=== PATIENT | female | born 2000 | race Caucasian/White ===

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

== ENCOUNTER → 2018-01-30 | Outpatient (CLI) | payer OTHER ==
[2018-01-30 16:03] LABS: HEMATOCRIT 38.7 % (35.0-45.0); HEMOGLOBIN 12.3 g/dL (12.0-15.0); RED BLOOD COUNT 4.44 M/mm3 (4.10-5.30); RED CELL DISTRIBUTION WIDTH 12.8 % (11.5-14.5); WHITE BLOOD COUNT 11.4 K/mm3 (4.8-10.8)
[2018-01-30 16:39] LABS: ALBUMIN 4.3 g/dL (3.5-5.0); BUN/CREATININE RATIO 19.6 (6.0-26.0); CALCIUM 9.5 mg/dL (8.4-10.2); POTASSIUM 4.1 mmol/L (3.6-5.0); TOTAL BILIRUBIN 0.7 mg/dL (0.2-1.3)
[2018-01-30 22:17] LABS: C-REACTIVE PROTEIN XXX
== END ==
LOC: LAB 15:10
PROVIDERS: Family Medicine
DX: E34.0 Carcinoid syndrome (principal); E53.8 Deficiency of other specified B group vitamins

== ENCOUNTER → 2018-07-25 | Outpatient (CLI) | payer OTHER ==
[2018-07-18 17:22] VITALS: BP 105/54
[~2018-07-25] MED LIST changes: +BIRTH CONTROL; +CYANOCOBAL1000 MCG/1 IM; +EPIPEN 2-PAK1 MG/ML; +MUPIROCIN2% TP; +PHENERGAN 25 TA25 MG PO; +RT ALBUTEROL CC18 GM IH; +SCOPOLAMINE1 EACH TOP; +ZOFRAN ODT8 M1 PO
== END ==
LOC: RAD 07:45
DX: R10.30 Lower abdominal pain, unspecified (principal); N36.44 Muscular disorders of urethra; R33.9 Retention of urine, unspecified; Z98.890 Other specified postprocedural states

== ENCOUNTER → 2018-08-13 | Outpatient (CLI) | payer OTHER ==
[2018-08-07 12:14] VITALS: BP 112/60
== END ==
LOC: RAD 07:58
DX: R14.0 Abdominal distension (gaseous) (principal); Z98.890 Other specified postprocedural states; Z90.49 Acquired absence of other specified parts of digestive tract

== ENCOUNTER → 2018-08-28 | Outpatient (CLI) | payer OTHER ==
[2018-08-14 13:49] VITALS: BP 97/68
[2018-08-28 17:37] LABS: HEMATOCRIT 37.7 % (35.0-45.0); MEAN PLATELET VOLUME 11.5 fl (7.4-10.4); RED BLOOD COUNT 4.38 M/mm3 (4.10-5.30); RED CELL DISTRIBUTION WIDTH 12.8 % (11.5-14.5); WHITE BLOOD COUNT 10.3 K/mm3 (4.8-10.8)
[2018-08-28 17:43] LABS: ALBUMIN 4.2 g/dL (3.5-5.0); CALCIUM 9.3 mg/dL (8.4-10.2); TOTAL BILIRUBIN 0.4 mg/dL (0.2-1.3); TOTAL PROTEIN 7.3 g/dL (6.3-8.2)
== END ==
LOC: LAB 14:54
PROVIDERS: Family Medicine
DX: Z00.00 Encounter for general adult medical examination without abnormal findings (principal); K31.84 Gastroparesis; K59.8 Other specified functional intestinal disorders; Z90.49 Acquired absence of other specified parts of digestive tract

== ENCOUNTER → 2018-09-04 | Outpatient (CLI) | payer OTHER ==
[2018-08-28 15:32] VITALS: BP 121/57
[2018-09-04 19:09] LABS: HEMATOCRIT 36.3 % (35.0-45.0); HEMOGLOBIN 11.8 g/dL (12.0-15.0); MEAN PLATELET VOLUME 11.1 fl (7.4-10.4); RED BLOOD COUNT 4.25 M/mm3 (4.10-5.30); RED CELL DISTRIBUTION WIDTH 12.9 % (11.5-14.5); WHITE BLOOD COUNT 9.7 K/mm3 (4.8-10.8)
[2018-09-04 19:10] LABS: ALBUMIN 4.2 g/dL (3.5-5.0); CALCIUM 9.4 mg/dL (8.4-10.2); POTASSIUM 4.2 mmol/L (3.6-5.0); TOTAL BILIRUBIN 0.4 mg/dL (0.2-1.3); TOTAL PROTEIN 7.2 g/dL (6.3-8.2)
== END ==
LOC: LAB 18:04
PROVIDERS: Family Medicine
DX: E34.0 Carcinoid syndrome (principal); K52.81 Eosinophilic gastritis or gastroenteritis; D89.40 Mast cell activation, unspecified

== ENCOUNTER → 2018-09-11 | Outpatient (CLI) | payer OTHER ==
[2018-09-04 18:15] VITALS: BP 100/65
[2018-09-11 20:36] LABS: HEMATOCRIT 37.5 % (35.0-45.0); HEMOGLOBIN 12.1 g/dL (12.0-15.0); MEAN PLATELET VOLUME 11.6 fl (7.4-10.4); RED BLOOD COUNT 4.42 M/mm3 (4.10-5.30); WHITE BLOOD COUNT 12.3 K/mm3 (4.8-10.8)
[2018-09-11 21:55] LABS: ALBUMIN 4.3 g/dL (3.5-5.0); CALCIUM 9.3 mg/dL (8.4-10.2); POTASSIUM 3.6 mmol/L (3.6-5.0); TOTAL BILIRUBIN 0.8 mg/dL (0.2-1.3); TOTAL PROTEIN 7.5 g/dL (6.3-8.2)
== END ==
LOC: LAB 19:59
PROVIDERS: Family Medicine
DX: Z78.9 Other specified health status (principal)

== ENCOUNTER → 2018-09-19 | Outpatient (CLI) | payer OTHER ==
[2018-09-11 19:25] VITALS: BP 103/61
[2018-09-19 19:56] LABS: HEMOGLOBIN 11.9 g/dL (12.0-15.0); MEAN PLATELET VOLUME 11.6 fl (7.4-10.4); RED BLOOD COUNT 4.35 M/mm3 (4.10-5.30); RED CELL DISTRIBUTION WIDTH 13.1 % (11.5-14.5); WHITE BLOOD COUNT 10.1 K/mm3 (4.8-10.8)
[2018-09-19 20:01] LABS: ALBUMIN 4.2 g/dL (3.5-5.0); CALCIUM 9.3 mg/dL (8.4-10.2); POTASSIUM 3.8 mmol/L (3.6-5.0); TOTAL BILIRUBIN 0.7 mg/dL (0.2-1.3); TOTAL PROTEIN 7.1 g/dL (6.3-8.2)
== END ==
LOC: LAB 19:16
PROVIDERS: Family Medicine
DX: K31.84 Gastroparesis (principal); E44.1 Mild protein-calorie malnutrition; R19.7 Diarrhea, unspecified; R11.0 Nausea

== ENCOUNTER → 2018-09-26 | Outpatient (CLI) | payer OTHER ==
[2018-09-19 19:05] VITALS: BP 102/65
[2018-09-26 18:36] LABS: BASO # 0.1 (0.02-0.10); EOS # 0.2 (0.04-0.40); EOS % 1.6 % (0.1-4.0); HEMATOCRIT 38.7 % (35.0-45.0); HEMOGLOBIN 12.5 g/dL (12.0-15.0); LYMPH# 2.8 (1.20-3.40); MEAN CELL VOLUME 85 fl (78-95); MEAN CORPUSCULAR HEMOGLOBIN 28 pg (26-32); MEAN CORPUSCULAR HGB CONC 32 g/dL (33-37); MEAN PLATELET VOLUME 11.4 fl (7.4-10.4); MONO # 0.7 (0.10-0.60); PLATELET COUNT 389 K/mm3 (130-400); RED BLOOD COUNT 4.55 M/mm3 (4.10-5.30); RED CELL DISTRIBUTION WIDTH 13.3 % (11.5-14.5); WHITE BLOOD COUNT 11.8 K/mm3 (4.8-10.8)
[2018-09-26 18:47] LABS: ALBUMIN 4.4 g/dL (3.5-5.0); CALCIUM 9.4 mg/dL (8.4-10.2); POTASSIUM 4.3 mmol/L (3.6-5.0); TOTAL BILIRUBIN 0.7 mg/dL (0.2-1.3); TOTAL PROTEIN 7.5 g/dL (6.3-8.2)
== END ==
LOC: LAB 17:23
PROVIDERS: Family Medicine
DX: E44.1 Mild protein-calorie malnutrition (principal); K31.84 Gastroparesis

== ENCOUNTER → 2018-10-03 | Outpatient (CLI) | payer OTHER ==
[2018-09-26 18:17] VITALS: BP 102/67
[2018-10-03 18:09] LABS: BASO # 0.1 (0.02-0.10); EOS # 0.2 (0.04-0.40); EOS % 1.9 % (0.1-4.0); HEMATOCRIT 36.5 % (35.0-45.0); HEMOGLOBIN 11.9 g/dL (12.0-15.0); LYMPH# 2.8 (1.20-3.40); MEAN CELL VOLUME 85 fl (78-95); MEAN CORPUSCULAR HEMOGLOBIN 28 pg (26-32); MEAN CORPUSCULAR HGB CONC 33 g/dL (33-37); MEAN PLATELET VOLUME 11.7 fl (7.4-10.4); MONO # 0.6 (0.10-0.60); NEU # 6.9 (1.40-6.50); PLATELET COUNT 379 K/mm3 (130-400); RED BLOOD COUNT 4.28 M/mm3 (4.10-5.30); RED CELL DISTRIBUTION WIDTH 13.1 % (11.5-14.5); WHITE BLOOD COUNT 10.6 K/mm3 (4.8-10.8)
[2018-10-03 18:16] LABS: ALBUMIN 4.3 g/dL (3.5-5.0); CALCIUM 9.5 mg/dL (8.4-10.2); POTASSIUM 4.2 mmol/L (3.6-5.0); TOTAL BILIRUBIN 0.6 mg/dL (0.2-1.3); TOTAL PROTEIN 7.3 g/dL (6.3-8.2)
== END ==
LOC: LAB 17:11
PROVIDERS: Family Medicine
DX: R19.7 Diarrhea, unspecified (principal); R11.0 Nausea

== ENCOUNTER 2018-10-10 11:27 | Outpatient (RCR) | payer OTHER ==
[2018-07-18 17:22] VITALS: BP 105/54
[2018-08-07 12:14] VITALS: BP 112/60
[2018-08-14 13:49] VITALS: BP 97/68
[2018-08-28 15:32] VITALS: BP 121/57
[2018-09-04 18:15] VITALS: BP 100/65
[2018-09-11 19:25] VITALS: BP 103/61
[2018-09-19 19:05] VITALS: BP 102/65
[2018-09-26 18:17] VITALS: BP 102/67
[2018-10-03 17:15] VITALS: BP 113/76
[~2018-10-10] VITALS: Ht 175.3 cm; Wt 77.3 kg
[2018-10-10 12:00] VITALS: BP 104/55
== END 2018-10-16 | disposition home or self-care (01) ==
LOC: AMSURD
DX: E34.0 Carcinoid syndrome (principal); Z45.2 Encounter for adjustment and management of vascular access device; Z95.828 Presence of other vascular implants and grafts; Z48.00 Encounter for change or removal of nonsurgical wound dressing
CPT/HCPCS: J3420

== ENCOUNTER → 2018-10-10 | Outpatient (CLI) | payer OTHER ==
[2018-10-03 17:15] VITALS: BP 113/76
[2018-10-10 12:46] LABS: EOS # 0.2 (0.04-0.40); EOS % 2.6 % (0.1-4.0); HEMATOCRIT 36.8 % (35.0-45.0); HEMOGLOBIN 11.7 g/dL (12.0-15.0); LYMPH# 2.4 (1.20-3.40); MEAN CELL VOLUME 86 fl (78-95); MEAN CORPUSCULAR HEMOGLOBIN 27 pg (26-32); MEAN CORPUSCULAR HGB CONC 32 g/dL (33-37); MEAN PLATELET VOLUME 12.2 fl (7.4-10.4); MONO # 0.5 (0.10-0.60); NEU # 5.1 (1.40-6.50); PLATELET COUNT 327 K/mm3 (130-400); RED BLOOD COUNT 4.27 M/mm3 (4.10-5.30); RED CELL DISTRIBUTION WIDTH 13.3 % (11.5-14.5); WHITE BLOOD COUNT 8.4 K/mm3 (4.8-10.8)
[2018-10-10 13:10] LABS: ALBUMIN 4.1 g/dL (3.5-5.0); CALCIUM 8.9 mg/dL (8.4-10.2); POTASSIUM 4.1 mmol/L (3.6-5.0); TOTAL BILIRUBIN 0.4 mg/dL (0.2-1.3); TOTAL PROTEIN 7.1 g/dL (6.3-8.2)
== END ==
LOC: LAB 12:28
PROVIDERS: Family Medicine
DX: R19.7 Diarrhea, unspecified (principal); R11.0 Nausea

== ENCOUNTER 2018-10-23 17:00 | Outpatient (RCR) | payer OTHER ==
[2018-10-17 16:20] VITALS: BP 108/53
[2018-10-17 18:06] LABS: EOS # 0.2 (0.04-0.40); EOS % 2.2 % (0.1-4.0); HEMATOCRIT 35.4 % (35.0-45.0); HEMOGLOBIN 11.3 g/dL (12.0-15.0); LYMPH# 2.6 (1.20-3.40); MEAN CELL VOLUME 85 fl (78-95); MEAN CORPUSCULAR HEMOGLOBIN 27 pg (26-32); MEAN CORPUSCULAR HGB CONC 32 g/dL (33-37); MONO # 0.7 (0.10-0.60); PLATELET COUNT 309 K/mm3 (130-400); RED BLOOD COUNT 4.15 M/mm3 (4.10-5.30); RED CELL DISTRIBUTION WIDTH 13.4 % (11.5-14.5); WHITE BLOOD COUNT 9.6 K/mm3 (4.8-10.8)
[2018-10-17 18:23] LABS: MEAN PLATELET VOLUME 12.2 fl (7.4-10.4)
[2018-10-17 21:20] LABS: ALBUMIN 3.8 g/dL (3.5-5.0); TOTAL BILIRUBIN 0.6 mg/dL (0.2-1.3); TOTAL PROTEIN 6.8 g/dL (6.3-8.2)
[2018-10-23 18:16] LABS: EOS # 0.2 (0.04-0.40); EOS % 1.9 % (0.1-4.0); HEMATOCRIT 37.1 % (35.0-45.0); HEMOGLOBIN 11.8 g/dL (12.0-15.0); LYMPH# 2.5 (1.20-3.40); MEAN CELL VOLUME 86 fl (78-95); MEAN CORPUSCULAR HEMOGLOBIN 27 pg (26-32); MEAN CORPUSCULAR HGB CONC 32 g/dL (33-37); MONO # 0.6 (0.10-0.60); PLATELET COUNT 327 K/mm3 (130-400); RED BLOOD COUNT 4.34 M/mm3 (4.10-5.30); RED CELL DISTRIBUTION WIDTH 13.3 % (11.5-14.5); WHITE BLOOD COUNT 9.3 K/mm3 (4.8-10.8)
[2018-10-23 18:21] LABS: MEAN PLATELET VOLUME 12.3 fl (7.4-10.4)
[2018-10-23 18:23] LABS: ALBUMIN 4.1 g/dL (3.5-5.0); CALCIUM 9.2 mg/dL (8.4-10.2); TOTAL BILIRUBIN 0.6 mg/dL (0.2-1.3); TOTAL PROTEIN 7.4 g/dL (6.3-8.2)
== END 2018-10-23 17:01 | disposition home or self-care (01) ==
LOC: LAB 17:00
PROVIDERS: Family Medicine
DX: R19.7 Diarrhea, unspecified (principal); R11.0 Nausea

== ENCOUNTER → 2018-11-13 | Outpatient (CLI) | payer OTHER ==
[2018-10-30 13:24] VITALS: BP 103/71
[2018-11-13 21:23] LABS: ALBUMIN 3.6 g/dL (3.5-5.0); CALCIUM 9.1 mg/dL (8.4-10.2); POTASSIUM 4.2 mmol/L (3.6-5.0); TOTAL BILIRUBIN 0.7 mg/dL (0.2-1.3); TOTAL PROTEIN 6.6 g/dL (6.3-8.2)
[2018-11-13 21:28] LABS: EOS # 0.1 (0.04-0.40); EOS % 1.3 % (0.1-4.0); HEMATOCRIT 36.9 % (35.0-45.0); HEMOGLOBIN 11.8 g/dL (12.0-15.0); LYMPH# 2.6 (1.20-3.40); MEAN CELL VOLUME 85 fl (78-95); MEAN CORPUSCULAR HEMOGLOBIN 27 pg (26-32); MEAN CORPUSCULAR HGB CONC 32 g/dL (33-37); MONO # 0.5 (0.10-0.60); NEU # 5.6 (1.40-6.50); PLATELET COUNT 302 K/mm3 (130-400); RED BLOOD COUNT 4.32 M/mm3 (4.10-5.30); RED CELL DISTRIBUTION WIDTH 13.8 % (11.5-14.5); WHITE BLOOD COUNT 8.9 K/mm3 (4.8-10.8)
[2018-11-14 01:10] LABS: MEAN PLATELET VOLUME 12.2 fl (7.4-10.4)
== END ==
LOC: LAB 17:18
PROVIDERS: Family Medicine
DX: K31.84 Gastroparesis (principal); E44.1 Mild protein-calorie malnutrition; R19.7 Diarrhea, unspecified; R11.0 Nausea

== ENCOUNTER → 2018-11-20 | Outpatient (CLI) | payer OTHER ==
[2018-11-13 17:30] VITALS: BP 121/76
[2018-11-20 21:02] LABS: EOS # 0.1 (0.04-0.40); EOS % 1.3 % (0.1-4.0); HEMATOCRIT 37.4 % (35.0-45.0); LYMPH# 2.4 (1.20-3.40); MEAN CELL VOLUME 84 fl (78-95); MEAN CORPUSCULAR HEMOGLOBIN 27 pg (26-32); MEAN CORPUSCULAR HGB CONC 32 g/dL (33-37); MONO # 0.6 (0.10-0.60); NEU # 7.6 (1.40-6.50); PLATELET COUNT 338 K/mm3 (130-400); RED BLOOD COUNT 4.43 M/mm3 (4.10-5.30); RED CELL DISTRIBUTION WIDTH 13.6 % (11.5-14.5); WHITE BLOOD COUNT 10.8 K/mm3 (4.8-10.8)
[2018-11-20 21:08] LABS: ALBUMIN 3.8 g/dL (3.5-5.0); CALCIUM 9.1 mg/dL (8.4-10.2); POTASSIUM 4.2 mmol/L (3.6-5.0); TOTAL BILIRUBIN 0.5 mg/dL (0.2-1.3)
[2018-11-20 21:22] LABS: MEAN PLATELET VOLUME 12.9 fl (7.4-10.4)
== END ==
LOC: LAB 18:31
PROVIDERS: Family Medicine
DX: E44.1 Mild protein-calorie malnutrition (principal); R19.7 Diarrhea, unspecified; K31.84 Gastroparesis

== ENCOUNTER → 2018-11-27 | Outpatient (CLI) | payer OTHER ==
[2018-11-20 18:40] VITALS: BP 93/61
[2018-11-27 19:31] LABS: BASO # 0.1 (0.02-0.10); EOS # 0.3 (0.04-0.40); EOS % 2.6 % (0.1-4.0); HEMATOCRIT 37.5 % (35.0-45.0); HEMOGLOBIN 11.9 g/dL (12.0-15.0); LYMPH# 2.9 (1.20-3.40); MEAN CELL VOLUME 85 fl (78-95); MEAN CORPUSCULAR HEMOGLOBIN 27 pg (26-32); MEAN CORPUSCULAR HGB CONC 32 g/dL (33-37); MONO # 0.6 (0.10-0.60); NEU # 5.6 (1.40-6.50); PLATELET COUNT 334 K/mm3 (130-400); RED BLOOD COUNT 4.42 M/mm3 (4.10-5.30); RED CELL DISTRIBUTION WIDTH 13.6 % (11.5-14.5); WHITE BLOOD COUNT 9.4 K/mm3 (4.8-10.8)
[2018-11-27 19:33] LABS: MEAN PLATELET VOLUME 12.3 fl (7.4-10.4)
[2018-11-27 19:37] LABS: POTASSIUM 4.2 mmol/L (3.6-5.0); TOTAL BILIRUBIN 0.6 mg/dL (0.2-1.3); TOTAL PROTEIN 7.2 g/dL (6.3-8.2)
== END ==
LOC: LAB 18:47
PROVIDERS: Family Medicine
DX: K31.84 Gastroparesis (principal); R19.7 Diarrhea, unspecified; R11.0 Nausea; E44.1 Mild protein-calorie malnutrition

== ENCOUNTER → 2018-12-04 | Outpatient (CLI) | payer OTHER ==
[2018-11-27 18:18] VITALS: BP 105/58
[2018-12-04 20:54] LABS: BASO # 0.1 (0.02-0.10); EOS # 0.1 (0.04-0.40); EOS % 1.5 % (0.1-4.0); HEMATOCRIT 36.3 % (35.0-45.0); HEMOGLOBIN 11.6 g/dL (12.0-15.0); LYMPH# 2.8 (1.20-3.40); MEAN CELL VOLUME 84 fl (78-95); MEAN CORPUSCULAR HEMOGLOBIN 27 pg (26-32); MEAN CORPUSCULAR HGB CONC 32 g/dL (33-37); MONO # 0.4 (0.10-0.60); PLATELET COUNT 323 K/mm3 (130-400); RED BLOOD COUNT 4.31 M/mm3 (4.10-5.30); RED CELL DISTRIBUTION WIDTH 13.5 % (11.5-14.5); WHITE BLOOD COUNT 9.4 K/mm3 (4.8-10.8)
[2018-12-04 21:02] LABS: ALBUMIN 3.9 g/dL (3.5-5.0); CALCIUM 8.8 mg/dL (8.4-10.2); TOTAL BILIRUBIN 0.8 mg/dL (0.2-1.3); TOTAL PROTEIN 7.1 g/dL (6.3-8.2)
[2018-12-04 21:06] LABS: MEAN PLATELET VOLUME 12.2 fl (7.4-10.4)
== END ==
LOC: LAB 19:56
PROVIDERS: Family Medicine
DX: Z76.0 Encounter for issue of repeat prescription (principal)

== ENCOUNTER → 2018-12-11 | Outpatient (CLI) | payer OTHER ==
[2018-12-04 20:19] VITALS: BP 103/55
[2018-12-11 18:19] LABS: EOS # 0.2 (0.04-0.40); EOS % 1.9 % (0.1-4.0); HEMATOCRIT 35.2 % (35.0-45.0); HEMOGLOBIN 11.1 g/dL (12.0-15.0); LYMPH# 2.6 (1.20-3.40); MEAN CELL VOLUME 86 fl (78-95); MEAN CORPUSCULAR HEMOGLOBIN 27 pg (26-32); MEAN CORPUSCULAR HGB CONC 32 g/dL (33-37); MONO # 0.5 (0.10-0.60); NEU # 4.9 (1.40-6.50); PLATELET COUNT 301 K/mm3 (130-400); RED CELL DISTRIBUTION WIDTH 13.6 % (11.5-14.5); WHITE BLOOD COUNT 8.2 K/mm3 (4.8-10.8)
[2018-12-11 18:24] LABS: ALBUMIN 3.8 g/dL (3.5-5.0); AST-SGOT 13 U/L (14-36); CARBON DIOXIDE 26 mmol/L (22-30); GLUCOSE 76 mg/dL (65-105); POTASSIUM 4.4 mmol/L (3.6-5.0); SODIUM 136 mmol/L (137-145); TOTAL BILIRUBIN 0.5 mg/dL (0.2-1.3); TOTAL PROTEIN 6.9 g/dL (6.3-8.2)
[2018-12-11 18:28] LABS: MEAN PLATELET VOLUME 12.5 fl (7.4-10.4)
[2018-12-11 19:12] LABS: ALT/SGPT < 3 U/L (9-52)
== END ==
LOC: LAB 16:31
PROVIDERS: Family Medicine
DX: F50.89 Other specified eating disorder (principal)

== ENCOUNTER 2018-12-18 18:33 | Outpatient (RCR) | payer OTHER ==
[2018-10-17 16:20] VITALS: BP 108/53
[2018-10-23 16:59] VITALS: BP 96/60
[2018-10-30 13:24] VITALS: BP 103/71
[2018-10-30 15:15] LABS: ALBUMIN 3.9 g/dL (3.5-5.0); POTASSIUM 4.2 mmol/L (3.6-5.0); TOTAL BILIRUBIN 0.5 mg/dL (0.2-1.3); TOTAL PROTEIN 7.1 g/dL (6.3-8.2)
[2018-10-30 15:50] LABS: EOS # 0.2 (0.04-0.40); EOS % 1.9 % (0.1-4.0); HEMATOCRIT 36.8 % (35.0-45.0); HEMOGLOBIN 11.8 g/dL (12.0-15.0); LYMPH# 2.3 (1.20-3.40); MEAN CELL VOLUME 85 fl (78-95); MEAN CORPUSCULAR HEMOGLOBIN 27 pg (26-32); MEAN CORPUSCULAR HGB CONC 32 g/dL (33-37); MONO # 0.5 (0.10-0.60); NEU # 5.8 (1.40-6.50); PLATELET COUNT 338 K/mm3 (130-400); RED BLOOD COUNT 4.34 M/mm3 (4.10-5.30); RED CELL DISTRIBUTION WIDTH 13.4 % (11.5-14.5); WHITE BLOOD COUNT 8.7 K/mm3 (4.8-10.8)
[2018-10-30 15:55] LABS: MEAN PLATELET VOLUME 12.5 fl (7.4-10.4)
[2018-11-13 17:30] VITALS: BP 121/76
[2018-11-20 18:40] VITALS: BP 93/61
--- NOTE | 2018-11-20 19:18 | NUR ---
PT GET B12 [id number], NEXT INJECTION DUE 11/27/18.
[2018-11-27 18:18] VITALS: BP 105/58
[2018-12-04 20:19] VITALS: BP 103/55
[2018-12-11 16:40] VITALS: BP 105/66
[~2018-12-18] VITALS: Ht 175.3 cm; Wt 77.3 kg
[2018-12-18 18:47] VITALS: BP 95/64
[2019-01-16] MEDS ORDERED: LACTULOSE10 GM PO (21:18)
[2019-01-16] MEDS ORDERED: OCTREOTIDE 50 MCG/ML SQ (21:19)
[2019-01-16] MEDS ORDERED: AMERINET CHO25 MG/ML IJ (21:19)
[2019-01-16] MEDS ORDERED: FAMOTIDINE (21:19)
== END 2019-01-15 | disposition home or self-care (01) ==
LOC: AMSURD
PROVIDERS: Family Medicine
DX: E34.0 Carcinoid syndrome (principal); Z45.2 Encounter for adjustment and management of vascular access device; Z95.828 Presence of other vascular implants and grafts; Z48.00 Encounter for change or removal of nonsurgical wound dressing
CPT/HCPCS: J1644; J3420

== ENCOUNTER → 2018-12-18 | Outpatient (CLI) | payer OTHER ==
[2018-12-11 16:40] VITALS: BP 105/66
[2018-12-18 20:03] LABS: BASO # 0.1 (0.02-0.10); EOS # 0.2 (0.04-0.40); EOS % 1.9 % (0.1-4.0); HEMOGLOBIN 11.9 g/dL (12.0-15.0); MEAN CELL VOLUME 85 fl (78-95); MEAN CORPUSCULAR HEMOGLOBIN 27 pg (26-32); MEAN CORPUSCULAR HGB CONC 32 g/dL (33-37); MONO # 0.6 (0.10-0.60); NEU # 5.5 (1.40-6.50); PLATELET COUNT 321 K/mm3 (130-400); RED BLOOD COUNT 4.35 M/mm3 (4.10-5.30); RED CELL DISTRIBUTION WIDTH 13.5 % (11.5-14.5); WHITE BLOOD COUNT 9.5 K/mm3 (4.8-10.8)
[2018-12-18 20:08] LABS: MEAN PLATELET VOLUME 12.7 fl (7.4-10.4)
[2018-12-18 20:11] LABS: CALCIUM 9.1 mg/dL (8.4-10.2); POTASSIUM 4.3 mmol/L (3.6-5.0); TOTAL BILIRUBIN 0.7 mg/dL (0.2-1.3); TOTAL PROTEIN 7.3 g/dL (6.3-8.2)
== END ==
LOC: LAB 18:32
PROVIDERS: Family Medicine
DX: Z76.0 Encounter for issue of repeat prescription (principal)

== ENCOUNTER → 2019-01-16 | Outpatient (CLI) | payer OTHER ==
[2018-12-18 18:47] VITALS: BP 95/64
[~2019-01-16] MED LIST changes: +AMERINET CHO25 MG/ML IJ; +FAMOTIDINE; +LACTULOSE10 GM PO; +OCTREOTIDE 50 MCG/ML SQ
[2019-01-16 22:12] LABS: HEMOGLOBIN 11.8 g/dL (12.0-15.0); RED BLOOD COUNT 4.35 M/mm3 (4.10-5.30); RED CELL DISTRIBUTION WIDTH 13.8 % (11.5-14.5); WHITE BLOOD COUNT 11.8 K/mm3 (4.8-10.8)
[2019-01-16 22:35] LABS: MEAN PLATELET VOLUME 12.4 fl (7.4-10.4)
[2019-01-17 08:21] LABS: ALBUMIN 4.1 g/dL (3.5-5.0); CALCIUM 9.6 mg/dL (8.4-10.2); POTASSIUM 4.4 mmol/L (3.6-5.0); TOTAL BILIRUBIN 0.6 mg/dL (0.2-1.3); TOTAL PROTEIN 7.8 g/dL (6.3-8.2)
== END ==
LOC: LAB 20:56
PROVIDERS: Family Medicine
DX: E34.0 Carcinoid syndrome (principal)

== ENCOUNTER → 2019-01-23 | Outpatient (CLI) | payer OTHER ==
[2019-01-16 21:14] VITALS: BP 103/65
[2019-01-23 16:29] LABS: ALBUMIN 3.9 g/dL (3.5-5.0); TOTAL BILIRUBIN 0.6 mg/dL (0.2-1.3); TOTAL PROTEIN 7.2 g/dL (6.3-8.2)
[2019-01-23 16:37] LABS: HEMATOCRIT 34.4 % (35.0-45.0); HEMOGLOBIN 10.9 g/dL (12.0-15.0); RED BLOOD COUNT 4.01 M/mm3 (4.10-5.30); RED CELL DISTRIBUTION WIDTH 13.7 % (11.5-14.5); WHITE BLOOD COUNT 11.1 K/mm3 (4.8-10.8)
[2019-01-23 16:57] LABS: MEAN PLATELET VOLUME 12.1 fl (7.4-10.4)
== END ==
LOC: LAB 13:41
PROVIDERS: Family Medicine
DX: E34.0 Carcinoid syndrome (principal)

== ENCOUNTER → 2019-01-29 | Outpatient (CLI) | payer OTHER ==
[2019-01-23 16:18] VITALS: BP 110/66
[2019-01-29 18:56] LABS: EOS # 0.3 (0.04-0.40); EOS % 3.5 % (0.1-4.0); HEMATOCRIT 34.4 % (35.0-45.0); HEMOGLOBIN 11.1 g/dL (12.0-15.0); LYMPH# 2.9 (1.20-3.40); MEAN CELL VOLUME 85 fl (78-95); MEAN CORPUSCULAR HEMOGLOBIN 28 pg (26-32); MEAN CORPUSCULAR HGB CONC 32 g/dL (33-37); MONO # 0.5 (0.10-0.60); NEU # 5.5 (1.40-6.50); PLATELET COUNT 337 K/mm3 (130-400); RED BLOOD COUNT 4.04 M/mm3 (4.10-5.30); RED CELL DISTRIBUTION WIDTH 13.8 % (11.5-14.5); WHITE BLOOD COUNT 9.3 K/mm3 (4.8-10.8)
[2019-01-29 19:01] LABS: ALBUMIN 3.9 g/dL (3.5-5.0); CALCIUM 9.1 mg/dL (8.4-10.2); POTASSIUM 3.9 mmol/L (3.6-5.0); TOTAL BILIRUBIN 0.6 mg/dL (0.2-1.3); TOTAL PROTEIN 7.3 g/dL (6.3-8.2)
[2019-01-29 19:03] LABS: MEAN PLATELET VOLUME 12.3 fl (7.4-10.4)
== END ==
LOC: LAB 18:15
PROVIDERS: Family Medicine
DX: Z99.89 Dependence on other enabling machines and devices (principal)

== ENCOUNTER → 2019-02-05 | Outpatient (CLI) | payer OTHER ==
[2019-01-29 18:32] VITALS: BP 117/65
[2019-02-05 16:58] LABS: EOS # 0.2 (0.04-0.40); EOS % 1.9 % (0.1-4.0); HEMATOCRIT 36.5 % (35.0-45.0); HEMOGLOBIN 11.6 g/dL (12.0-15.0); LYMPH# 2.7 (1.20-3.40); MEAN CELL VOLUME 85 fl (78-95); MEAN CORPUSCULAR HEMOGLOBIN 27 pg (26-32); MEAN CORPUSCULAR HGB CONC 32 g/dL (33-37); MONO # 0.6 (0.10-0.60); NEU # 7.5 (1.40-6.50); PLATELET COUNT 350 K/mm3 (130-400); RED BLOOD COUNT 4.29 M/mm3 (4.10-5.30); RED CELL DISTRIBUTION WIDTH 13.8 % (11.5-14.5); WHITE BLOOD COUNT 11.1 K/mm3 (4.8-10.8)
[2019-02-05 17:20] LABS: ALBUMIN 4.2 g/dL (3.5-5.0); CALCIUM 9.2 mg/dL (8.4-10.2); POTASSIUM 4.3 mmol/L (3.6-5.0); TOTAL BILIRUBIN 0.8 mg/dL (0.2-1.3); TOTAL PROTEIN 7.4 g/dL (6.3-8.2)
[2019-02-05 17:42] LABS: MEAN PLATELET VOLUME 12.2 fl (7.4-10.4)
== END ==
LOC: LAB 15:32
PROVIDERS: Family Medicine
DX: Z76.0 Encounter for issue of repeat prescription (principal)

== ENCOUNTER → 2019-02-13 | Outpatient (CLI) | payer OTHER ==
[2019-02-05 15:45] VITALS: BP 106/67
[2019-02-13 19:13] LABS: BASO # 0.1 (0.02-0.10); EOS # 0.2 (0.04-0.40); EOS % 2.5 % (0.1-4.0); HEMATOCRIT 35.5 % (35.0-45.0); HEMOGLOBIN 11.4 g/dL (12.0-15.0); LYMPH# 3.4 (1.20-3.40); MEAN CELL VOLUME 86 fl (78-95); MEAN CORPUSCULAR HEMOGLOBIN 28 pg (26-32); MEAN CORPUSCULAR HGB CONC 32 g/dL (33-37); MONO # 0.5 (0.10-0.60); NEU # 5.5 (1.40-6.50); PLATELET COUNT 399 K/mm3 (130-400); RED BLOOD COUNT 4.15 M/mm3 (4.10-5.30); RED CELL DISTRIBUTION WIDTH 13.4 % (11.5-14.5); WHITE BLOOD COUNT 9.8 K/mm3 (4.8-10.8)
[2019-02-13 19:15] LABS: MEAN PLATELET VOLUME 12.2 fl (7.4-10.4)
[2019-02-13 19:24] LABS: ALBUMIN 3.8 g/dL (3.5-5.0); CALCIUM 9.6 mg/dL (8.4-10.2); TOTAL BILIRUBIN 0.8 mg/dL (0.2-1.2); TOTAL PROTEIN 7.4 g/dL (6.4-8.3)
== END ==
LOC: LAB 17:31
PROVIDERS: Family Medicine
DX: Z76.0 Encounter for issue of repeat prescription (principal); E44.1 Mild protein-calorie malnutrition; K31.84 Gastroparesis

== ENCOUNTER → 2019-02-26 | Outpatient (CLI) | payer OTHER ==
[2019-02-20 10:01] VITALS: BP 104/64
[2019-02-26 12:07] LABS: EOS # 0.3 (0.04-0.40); EOS % 2.7 % (0.1-4.0); HEMATOCRIT 33.5 % (35.0-45.0); HEMOGLOBIN 10.5 g/dL (12.0-15.0); LYMPH# 2.1 (1.20-3.40); MEAN CELL VOLUME 87 fl (78-95); MEAN CORPUSCULAR HEMOGLOBIN 27 pg (26-32); MEAN CORPUSCULAR HGB CONC 31 g/dL (33-37); MEAN PLATELET VOLUME 11.6 fl (7.4-10.4); MONO # 0.7 (0.10-0.60); NEU # 7.1 (1.40-6.50); PLATELET COUNT 348 K/mm3 (130-400); RED BLOOD COUNT 3.86 M/mm3 (4.10-5.30); WHITE BLOOD COUNT 10.2 K/mm3 (4.8-10.8)
[2019-02-26 12:21] LABS: ALBUMIN 3.4 g/dL (3.5-5.0); CALCIUM 9.2 mg/dL (8.4-10.2); POTASSIUM 4.2 mmol/L (3.5-5.1); TOTAL BILIRUBIN 0.4 mg/dL (0.2-1.2); TOTAL PROTEIN 6.5 g/dL (6.4-8.3)
== END ==
LOC: LAB 11:03
PROVIDERS: Family Medicine
DX: Z76.0 Encounter for issue of repeat prescription (principal); K31.84 Gastroparesis; E44.1 Mild protein-calorie malnutrition

== ENCOUNTER → 2019-03-05 | Outpatient (CLI) | payer OTHER ==
[2019-02-26 11:10] VITALS: BP 104/61
[~2019-03-05] MED LIST changes: +LACTULOSE10 GM/15 M PO; +PROTONIX I40 MG/VIAL IV
[2019-03-05 17:35] LABS: EOS # 0.4 (0.04-0.40); EOS % 2.6 % (0.1-4.0); HEMATOCRIT 32.9 % (35.0-45.0); HEMOGLOBIN 10.5 g/dL (12.0-15.0); LYMPH# 2.6 (1.20-3.40); MEAN CELL VOLUME 86 fl (78-95); MEAN CORPUSCULAR HEMOGLOBIN 27 pg (26-32); MEAN CORPUSCULAR HGB CONC 32 g/dL (33-37); MEAN PLATELET VOLUME 11.7 fl (7.4-10.4); MONO # 0.9 (0.10-0.60); PLATELET COUNT 387 K/mm3 (130-400); RED BLOOD COUNT 3.83 M/mm3 (4.10-5.30); RED CELL DISTRIBUTION WIDTH 13.1 % (11.5-14.5)
[2019-03-05 17:48] LABS: ALBUMIN 3.4 g/dL (3.5-5.0); CALCIUM 8.8 mg/dL (8.4-10.2); TOTAL BILIRUBIN 0.4 mg/dL (0.2-1.2); TOTAL PROTEIN 5.8 g/dL (6.4-8.3)
[2019-03-05 17:52] LABS: NEU # 10.1 (1.40-6.50)
== END ==
LOC: LAB 16:15
PROVIDERS: Family Medicine
DX: Z76.0 Encounter for issue of repeat prescription (principal)

== ENCOUNTER → 2019-03-26 | Outpatient (CLI) | payer OTHER ==
[2019-03-05 16:28] VITALS: BP 110/67
[2019-03-26 19:32] LABS: EOS # 0.2 (0.04-0.40); EOS % 2.1 % (0.1-4.0); HEMATOCRIT 33.9 % (35.0-45.0); HEMOGLOBIN 10.7 g/dL (12.0-15.0); LYMPH# 3.1 (1.20-3.40); MEAN CELL VOLUME 84 fl (78-95); MEAN CORPUSCULAR HEMOGLOBIN 27 pg (26-32); MEAN CORPUSCULAR HGB CONC 32 g/dL (33-37); MEAN PLATELET VOLUME 11.6 fl (7.4-10.4); MONO # 0.5 (0.10-0.60); NEU # 6.2 (1.40-6.50); PLATELET COUNT 477 K/mm3 (130-400); RED BLOOD COUNT 4.03 M/mm3 (4.10-5.30); RED CELL DISTRIBUTION WIDTH 12.4 % (11.5-14.5); WHITE BLOOD COUNT 10.1 K/mm3 (4.8-10.8)
[2019-03-26 19:44] LABS: ALBUMIN 3.6 g/dL (3.5-5.0); CALCIUM 9.5 mg/dL (8.3-10.5); POTASSIUM 3.8 mmol/L (3.5-5.1); TOTAL BILIRUBIN 0.9 mg/dL (0.2-1.2)
== END ==
LOC: LAB 18:28
PROVIDERS: Family Medicine
DX: E61.1 Iron deficiency (principal); Z79.891 Long term (current) use of opiate analgesic

== ENCOUNTER 2019-04-09 15:36 | Outpatient (RCR) | payer OTHER ==
[2019-01-16 21:14] VITALS: BP 103/65
[2019-01-23 16:18] VITALS: BP 110/66
[2019-01-29 18:32] VITALS: BP 117/65
[2019-02-05 15:45] VITALS: BP 106/67
[2019-02-13 18:44] VITALS: BP 111/69
[2019-02-20 10:01] VITALS: BP 104/64
[2019-02-26 11:10] VITALS: BP 104/61
[2019-03-05 16:28] VITALS: BP 110/67
[2019-03-26 18:28] VITALS: BP 101/69
[2019-04-02 21:06] VITALS: BP 102/62
[~2019-04-09] VITALS: Ht 175.3 cm; Wt 77.3 kg
[2019-04-09 15:55] VITALS: BP 104/68
== END 2019-04-16 | disposition still patient (30) ==
LOC: AMSURD
DX: Z76.0 Encounter for issue of repeat prescription (principal); E34.0 Carcinoid syndrome; Z78.9 Other specified health status
CPT/HCPCS: J3420

== ENCOUNTER → 2019-04-09 | Outpatient (CLI) | payer OTHER ==
[2019-04-02 21:06] VITALS: BP 102/62
[2019-04-09 16:23] LABS: EOS # 0.2 (0.04-0.40); HEMATOCRIT 32.8 % (35.0-45.0); HEMOGLOBIN 10.3 g/dL (12.0-15.0); LYMPH# 2.2 (1.20-3.40); MEAN CELL VOLUME 84 fl (78-95); MEAN CORPUSCULAR HEMOGLOBIN 26 pg (26-32); MEAN CORPUSCULAR HGB CONC 31 g/dL (33-37); MEAN PLATELET VOLUME 11.7 fl (7.4-10.4); MONO # 0.5 (0.10-0.60); NEU # 4.8 (1.40-6.50); PLATELET COUNT 364 K/mm3 (130-400); RED CELL DISTRIBUTION WIDTH 12.4 % (11.5-14.5); WHITE BLOOD COUNT 7.7 K/mm3 (4.8-10.8)
[2019-04-09 16:45] LABS: ALBUMIN 3.5 g/dL (3.5-5.0); POTASSIUM 4.1 mmol/L (3.5-5.1)
[2019-04-09 16:46] LABS: CALCIUM 8.9 mg/dL (8.3-10.5)
[2019-04-09 16:48] LABS: TOTAL PROTEIN 6.9 g/dL (6.4-8.3)
[2019-04-09 16:49] LABS: TOTAL BILIRUBIN 0.6 mg/dL (0.2-1.2)
== END ==
LOC: LAB 15:40
PROVIDERS: Family Medicine
DX: E61.1 Iron deficiency (principal); Z79.891 Long term (current) use of opiate analgesic

== ENCOUNTER → 2019-04-17 | Outpatient (CLI) | payer OTHER ==
[2019-04-09 15:55] VITALS: BP 104/68
== END ==
LOC: AMSURD 18:23
DX: Z76.0 Encounter for issue of repeat prescription (principal); E61.1 Iron deficiency

== ENCOUNTER → 2019-05-02 | Outpatient (CLI) | payer OTHER ==
[2019-04-24 19:40] VITALS: BP 107/61
[2019-05-02 16:05] LABS: ALBUMIN 3.8 g/dL (3.5-5.0); POTASSIUM 4.1 mmol/L (3.5-5.1)
[2019-05-02 16:06] LABS: CALCIUM 9.5 mg/dL (8.3-10.5)
[2019-05-02 16:08] LABS: TOTAL PROTEIN 7.5 g/dL (6.4-8.3)
== END ==
LOC: LAB 15:13
PROVIDERS: Family Medicine
DX: Z76.0 Encounter for issue of repeat prescription (principal); E61.1 Iron deficiency

== ENCOUNTER → 2019-05-14 | Outpatient (CLI) | payer OTHER ==
[2019-05-07 14:00] VITALS: BP 106/65
[2019-05-14 16:12] LABS: EOS # 0.2 (0.04-0.40); EOS % 1.9 % (0.1-4.0); HEMATOCRIT 34.4 % (35.0-45.0); HEMOGLOBIN 10.8 g/dL (12.0-15.0); LYMPH# 2.3 (1.20-3.40); MEAN CELL VOLUME 82 fl (78-95); MEAN CORPUSCULAR HEMOGLOBIN 26 pg (26-32); MEAN CORPUSCULAR HGB CONC 31 g/dL (33-37); MEAN PLATELET VOLUME 11.5 fl (7.4-10.4); MONO # 0.7 (0.10-0.60); NEU # 5.4 (1.40-6.50); PLATELET COUNT 368 K/mm3 (130-400); RED BLOOD COUNT 4.18 M/mm3 (4.10-5.30); RED CELL DISTRIBUTION WIDTH 13.1 % (11.5-14.5); WHITE BLOOD COUNT 8.6 K/mm3 (4.8-10.8)
[2019-05-14 16:17] LABS: ALBUMIN 3.6 g/dL (3.5-5.0); POTASSIUM 4.4 mmol/L (3.5-5.1)
[2019-05-14 16:18] LABS: CALCIUM 9.1 mg/dL (8.3-10.5)
[2019-05-14 16:20] LABS: TOTAL PROTEIN 7.7 g/dL (6.4-8.3)
[2019-05-14 16:22] LABS: TOTAL BILIRUBIN 0.7 mg/dL (0.2-1.2)
== END ==
LOC: LAB 15:39
PROVIDERS: Family Medicine
DX: E61.1 Iron deficiency (principal)

== ENCOUNTER → 2019-05-28 | Outpatient (CLI) | payer OTHER ==
[2019-05-21 17:00] VITALS: BP 106/68
[2019-05-28 21:34] LABS: ALBUMIN 3.7 g/dL (3.5-5.0); POTASSIUM 3.5 mmol/L (3.5-5.1)
[2019-05-28 21:35] LABS: CALCIUM 8.9 mg/dL (8.3-10.5)
[2019-05-28 21:37] LABS: TOTAL PROTEIN 7.6 g/dL (6.4-8.3)
== END ==
LOC: LAB 16:52
PROVIDERS: Family Medicine
DX: Z76.0 Encounter for issue of repeat prescription (principal); E61.1 Iron deficiency

== ENCOUNTER → 2019-06-11 | Outpatient (CLI) | payer OTHER ==
[2019-05-28 21:00] VITALS: BP 127/66
[2019-06-11 21:14] LABS: EOS # 0.2 (0.04-0.40); EOS % 1.8 % (0.1-4.0); HEMATOCRIT 33.8 % (35.0-45.0); HEMOGLOBIN 10.7 g/dL (12.0-15.0); LYMPH# 3.4 (1.20-3.40); MEAN CELL VOLUME 81 fl (78-95); MEAN CORPUSCULAR HEMOGLOBIN 26 pg (26-32); MEAN CORPUSCULAR HGB CONC 32 g/dL (33-37); MONO # 0.5 (0.10-0.60); NEU # 5.1 (1.40-6.50); PLATELET COUNT 351 K/mm3 (130-400); RED BLOOD COUNT 4.19 M/mm3 (4.10-5.30); RED CELL DISTRIBUTION WIDTH 13.8 % (11.5-14.5); WHITE BLOOD COUNT 9.3 K/mm3 (4.8-10.8)
[2019-06-11 21:16] LABS: POTASSIUM 3.6 mmol/L (3.5-5.1)
[2019-06-11 21:17] LABS: ALBUMIN 3.7 g/dL (3.5-5.0)
[2019-06-11 21:18] LABS: CALCIUM 8.9 mg/dL (8.3-10.5)
[2019-06-11 21:19] LABS: TOTAL PROTEIN 7.2 g/dL (6.4-8.3)
[2019-06-11 21:27] LABS: MEAN PLATELET VOLUME 12.5 fl (7.4-10.4)
== END ==
LOC: LAB 19:12
PROVIDERS: Family Medicine
DX: E44.1 Mild protein-calorie malnutrition (principal); E61.1 Iron deficiency; K31.89 Other diseases of stomach and duodenum; Z79.899 Other long term (current) drug therapy

== ENCOUNTER → 2019-06-25 | Outpatient (CLI) | payer OTHER ==
[2019-06-18 18:44] VITALS: BP 114/63
[2019-06-25 15:21] LABS: ALBUMIN 3.4 g/dL (3.5-5.0); POTASSIUM 4.2 mmol/L (3.5-5.1)
[2019-06-25 15:22] LABS: CALCIUM 8.6 mg/dL (8.3-10.5)
[2019-06-25 15:23] LABS: TOTAL PROTEIN 6.7 g/dL (6.4-8.3)
[2019-06-25 15:25] LABS: TOTAL BILIRUBIN 0.5 mg/dL (0.2-1.2)
== END ==
LOC: AMSURD 13:11
PROVIDERS: Family Medicine
DX: E44.1 Mild protein-calorie malnutrition (principal); E61.1 Iron deficiency; K31.84 Gastroparesis; Z79.899 Other long term (current) drug therapy

== ENCOUNTER 2019-07-10 16:10 | Outpatient (RCR) | payer OTHER ==
[2019-04-17 18:47] VITALS: BP 131/68
[2019-04-24 19:40] VITALS: BP 107/61
[2019-05-02 15:22] VITALS: BP 115/67
[2019-05-07 14:00] VITALS: BP 106/65
[2019-05-14 17:29] VITALS: BP 108/64
[2019-05-21 17:00] VITALS: BP 106/68
[2019-05-28 21:00] VITALS: BP 127/66
[2019-06-11 19:18] VITALS: BP 124/68
[2019-06-18 18:44] VITALS: BP 114/63
[2019-06-25 13:17] VITALS: BP 104/59
[2019-07-03 19:13] VITALS: BP 134/74
[~2019-07-10] VITALS: Ht 175.3 cm; Wt 77.3 kg
[2019-07-10 16:49] VITALS: BP 126/66
== END 2019-07-16 | disposition still patient (30) ==
LOC: AMSURD
DX: E34.0 Carcinoid syndrome (principal); Z78.9 Other specified health status
CPT/HCPCS: A6209; J3420

== ENCOUNTER → 2019-07-10 | Outpatient (CLI) | payer OTHER ==
[2019-07-03 19:13] VITALS: BP 134/74
[2019-07-10 16:50] LABS: EOS # 0.2 (0.04-0.40); EOS % 2.1 % (0.1-4.0); HEMATOCRIT 35.3 % (35.0-45.0); HEMOGLOBIN 11.3 g/dL (12.0-15.0); LYMPH# 2.5 (1.20-3.40); MEAN CELL VOLUME 81 fl (78-95); MEAN CORPUSCULAR HEMOGLOBIN 26 pg (26-32); MEAN CORPUSCULAR HGB CONC 32 g/dL (33-37); MEAN PLATELET VOLUME 11.7 fl (7.4-10.4); MONO # 0.5 (0.10-0.60); NEU # 5.5 (1.40-6.50); PLATELET COUNT 385 K/mm3 (130-400); RED BLOOD COUNT 4.37 M/mm3 (4.10-5.30); RED CELL DISTRIBUTION WIDTH 14.5 % (11.5-14.5); WHITE BLOOD COUNT 8.8 K/mm3 (4.8-10.8)
[2019-07-10 17:05] LABS: ALBUMIN 3.9 g/dL (3.5-5.0); POTASSIUM 4.4 mmol/L (3.5-5.1)
[2019-07-10 17:06] LABS: CALCIUM 9.5 mg/dL (8.3-10.5)
[2019-07-10 17:07] LABS: TOTAL PROTEIN 7.4 g/dL (6.4-8.3)
[2019-07-10 17:14] LABS: MAGNESIUM 1.92 mg/dL (1.70-2.20)
== END ==
LOC: AMSURD 16:18 → LAB 16:18
PROVIDERS: Family Medicine
DX: E44.1 Mild protein-calorie malnutrition (principal); K31.84 Gastroparesis; E61.1 Iron deficiency; Z79.899 Other long term (current) drug therapy

== ENCOUNTER 2019-07-21 22:49 | Emergency (ER) | payer OTHER ==
[~2019-07-21] VITALS: Ht 175.3 cm; Wt 72.7 kg
[2019-07-21] MEDS ORDERED: MIBELAS 24 FE1 EACH PO (23:03)
[2019-07-22 00:10] LABS: EOS # 0.1 (0.04-0.40); EOS % 1.4 % (0.1-4.0); HEMATOCRIT 33.6 % (35.0-45.0); HEMOGLOBIN 10.7 g/dL (12.0-15.0); MEAN CELL VOLUME 80 fl (78-95); MEAN CORPUSCULAR HEMOGLOBIN 26 pg (26-32); MEAN CORPUSCULAR HGB CONC 32 g/dL (33-37); MEAN PLATELET VOLUME 11.5 fl (7.4-10.4); MONO # 0.5 (0.10-0.60); PLATELET COUNT 353 K/mm3 (130-400); RED BLOOD COUNT 4.18 M/mm3 (4.10-5.30); RED CELL DISTRIBUTION WIDTH 14.4 % (11.5-14.5); WHITE BLOOD COUNT 9.7 K/mm3 (4.8-10.8)
[2019-07-22 00:19] LABS: ALBUMIN 3.6 g/dL (3.5-5.0); POTASSIUM 3.6 mmol/L (3.5-5.1)
[2019-07-22 00:20] LABS: CALCIUM 9.2 mg/dL (8.3-10.5)
[2019-07-22 00:21] LABS: TOTAL PROTEIN 7.4 g/dL (6.4-8.3)
[2019-07-22 00:23] LABS: TOTAL BILIRUBIN 0.8 mg/dL (0.2-1.2)
[2019-07-22] MEDS ORDERED: HYDROCODON-ACET15 ML PO (02:52)
[2019-07-22 03:08] VITALS: BP 109/64
== END 2019-07-22 03:08 | disposition home or self-care (01) ==
LOC: ED 22:49
PROVIDERS: Family Medicine
DX: K56.699 Other intestinal obstruction unspecified as to partial versus complete obstruction (principal); Z90.49 Acquired absence of other specified parts of digestive tract; Z98.890 Other specified postprocedural states
CPT/HCPCS: J2270; Q9967

== ENCOUNTER → 2019-07-24 | Outpatient (CLI) | payer OTHER ==
[2019-07-22 03:08] VITALS: BP 109/64
[~2019-07-24] MED LIST changes: +HYDROCODON-ACET15 ML PO; +MIBELAS 24 FE1 EACH PO
[2019-07-24 21:34] LABS: ALBUMIN 3.7 g/dL (3.5-5.0)
[2019-07-24 21:35] LABS: POTASSIUM 3.8 mmol/L (3.5-5.1)
[2019-07-24 21:36] LABS: CALCIUM 9.4 mg/dL (8.3-10.5)
[2019-07-24 21:37] LABS: TOTAL PROTEIN 7.5 g/dL (6.4-8.3)
[2019-07-24 21:43] LABS: MAGNESIUM 1.83 mg/dL (1.70-2.20)
== END ==
LOC: LAB 18:32
PROVIDERS: Physician Assistant
DX: E44.1 Mild protein-calorie malnutrition (principal); E61.1 Iron deficiency; K31.84 Gastroparesis; Z79.891 Long term (current) use of opiate analgesic

== ENCOUNTER → 2019-08-20 | Outpatient (CLI) | payer OTHER ==
[2019-08-13 19:40] VITALS: BP 100/68
[2019-08-20 17:34] LABS: EOS # 0.2 (0.04-0.40); HEMATOCRIT 33.1 % (35.0-45.0); HEMOGLOBIN 10.3 g/dL (12.0-15.0); MEAN CELL VOLUME 82 fl (78-95); MEAN CORPUSCULAR HEMOGLOBIN 26 pg (26-32); MEAN CORPUSCULAR HGB CONC 31 g/dL (33-37); MONO # 0.4 (0.10-0.60); NEU # 4.9 (1.40-6.50); PLATELET COUNT 379 K/mm3 (130-400); RED BLOOD COUNT 4.04 M/mm3 (4.10-5.30); RED CELL DISTRIBUTION WIDTH 14.4 % (11.5-14.5); WHITE BLOOD COUNT 8.5 K/mm3 (4.8-10.8)
[2019-08-20 17:35] LABS: ALBUMIN 3.6 g/dL (3.5-5.0); POTASSIUM 3.9 mmol/L (3.5-5.1)
[2019-08-20 17:37] LABS: MEAN PLATELET VOLUME 12.4 fl (7.4-10.4)
[2019-08-20 17:39] LABS: TOTAL BILIRUBIN 0.5 mg/dL (0.2-1.2)
[2019-08-20 17:44] LABS: MAGNESIUM 1.85 mg/dL (1.70-2.20)
== END ==
LOC: LAB 16:19
PROVIDERS: Family Medicine
DX: Z76.0 Encounter for issue of repeat prescription (principal); E61.1 Iron deficiency

== ENCOUNTER → 2019-09-04 | Outpatient (CLI) | payer OTHER ==
[2019-08-20 16:23] VITALS: BP 108/70
[2019-09-04 21:45] LABS: POTASSIUM 3.6 mmol/L (3.5-5.1)
[2019-09-04 21:46] LABS: CALCIUM 9.4 mg/dL (8.3-10.5)
[2019-09-04 21:47] LABS: TOTAL PROTEIN 7.5 g/dL (6.4-8.3)
[2019-09-04 21:49] LABS: TOTAL BILIRUBIN 0.7 mg/dL (0.2-1.2)
[2019-09-04 21:53] LABS: MAGNESIUM 1.82 mg/dL (1.70-2.20)
== END ==
LOC: LAB 20:45
PROVIDERS: Family Medicine
DX: Z76.0 Encounter for issue of repeat prescription (principal); E61.1 Iron deficiency

== ENCOUNTER → 2019-09-11 | Outpatient (CLI) | payer OTHER ==
[2019-09-04 21:16] VITALS: BP 121/60
[2019-09-13 15:38] LABS: .COPPER,S 2.27 mcg/mL (())
[2019-09-15 08:25] LABS: SELENIUM, SERUM AMS
== END ==
LOC: LAB 16:10
PROVIDERS: Family Medicine
DX: E44.1 Mild protein-calorie malnutrition (principal); K31.84 Gastroparesis

== ENCOUNTER → 2019-09-18 | Outpatient (CLI) | payer OTHER ==
[2019-09-18 14:19] VITALS: BP 115/67
[2019-09-18 15:14] LABS: EOS # 0.2 (0.04-0.40); EOS % 2.1 % (0.1-4.0); HEMATOCRIT 34.2 % (35.0-45.0); HEMOGLOBIN 10.7 g/dL (12.0-15.0); LYMPH# 2.1 (1.20-3.40); MEAN CELL VOLUME 85 fl (78-95); MEAN CORPUSCULAR HEMOGLOBIN 27 pg (26-32); MEAN CORPUSCULAR HGB CONC 31 g/dL (33-37); MONO # 0.5 (0.10-0.60); NEU # 4.9 (1.40-6.50); PLATELET COUNT 302 K/mm3 (130-400); RED BLOOD COUNT 4.04 M/mm3 (4.10-5.30); RED CELL DISTRIBUTION WIDTH 15.2 % (11.5-14.5); WHITE BLOOD COUNT 7.7 K/mm3 (4.8-10.8)
[2019-09-18 15:18] LABS: ALBUMIN 3.6 g/dL (3.5-5.0); POTASSIUM 4.2 mmol/L (3.5-5.1)
[2019-09-18 15:19] LABS: CALCIUM 9.3 mg/dL (8.3-10.5)
[2019-09-18 15:20] LABS: TOTAL PROTEIN 6.6 g/dL (6.4-8.3)
[2019-09-18 15:22] LABS: TOTAL BILIRUBIN 0.5 mg/dL (0.2-1.2)
[2019-09-18 15:27] LABS: MAGNESIUM 2.02 mg/dL (1.70-2.20)
== END ==
LOC: LAB 14:39
PROVIDERS: Physician Assistant
DX: E61.1 Iron deficiency (principal); Z79.891 Long term (current) use of opiate analgesic

== ENCOUNTER → 2019-10-03 | Outpatient (CLI) | payer OTHER ==
[2019-09-25 15:58] VITALS: BP 115/78
[2019-10-03 17:23] LABS: ALBUMIN 3.8 g/dL (3.5-5.0); POTASSIUM 4.3 mmol/L (3.5-5.1)
[2019-10-03 17:24] LABS: CALCIUM 9.1 mg/dL (8.3-10.5)
[2019-10-03 17:27] LABS: TOTAL BILIRUBIN 0.9 mg/dL (0.2-1.2)
[2019-10-03 17:32] LABS: MAGNESIUM 1.93 mg/dL (1.70-2.20)
== END ==
LOC: LAB 16:09
PROVIDERS: Family Medicine
DX: E61.1 Iron deficiency (principal); Z79.899 Other long term (current) drug therapy

== ENCOUNTER 2019-10-11 19:04 | Outpatient (RCR) | payer OTHER ==
[2019-07-17 19:30] VITALS: BP 111/71
[2019-07-24 19:04] VITALS: BP 101/63
[2019-08-07 20:02] VITALS: BP 115/64
[2019-08-13 19:40] VITALS: BP 100/68
[2019-08-20 16:23] VITALS: BP 108/70
[2019-09-04 21:16] VITALS: BP 121/60
[2019-09-11 16:25] VITALS: BP 144/70
[2019-09-18 14:19] VITALS: BP 115/67
[2019-09-25 15:58] VITALS: BP 115/78
[2019-10-03 16:25] VITALS: BP 100/65
[~2019-10-11] VITALS: Ht 175.3 cm; Wt 77.3 kg
[2019-10-11 19:00] VITALS: BP 110/63
== END 2019-10-15 | disposition still patient (30) ==
LOC: AMSURD
DX: E34.0 Carcinoid syndrome (principal); Z78.9 Other specified health status

== ENCOUNTER → 2019-10-16 | Outpatient (CLI) | payer OTHER ==
[2019-10-11 19:00] VITALS: BP 110/63
[2019-10-16 18:10] LABS: ALBUMIN 3.9 g/dL (3.5-5.0); POTASSIUM 4.2 mmol/L (3.5-5.1)
[2019-10-16 18:11] LABS: CALCIUM 9.2 mg/dL (8.3-10.5)
[2019-10-16 18:12] LABS: EOS # 0.2 (0.04-0.40); EOS % 2.3 % (0.1-4.0); HEMATOCRIT 36.3 % (35.0-45.0); HEMOGLOBIN 11.6 g/dL (12.0-15.0); LYMPH# 2.7 (1.20-3.40); MEAN CELL VOLUME 85 fl (78-95); MEAN CORPUSCULAR HEMOGLOBIN 27 pg (26-32); MEAN CORPUSCULAR HGB CONC 32 g/dL (33-37); MEAN PLATELET VOLUME 11.8 fl (7.4-10.4); MONO # 0.5 (0.10-0.60); NEU # 5.1 (1.40-6.50); PLATELET COUNT 311 K/mm3 (130-400); RED BLOOD COUNT 4.25 M/mm3 (4.10-5.30); RED CELL DISTRIBUTION WIDTH 14.9 % (11.5-14.5); TOTAL PROTEIN 7.3 g/dL (6.4-8.3); WHITE BLOOD COUNT 8.7 K/mm3 (4.8-10.8)
[2019-10-16 18:14] LABS: TOTAL BILIRUBIN 0.8 mg/dL (0.2-1.2)
[2019-10-16 18:19] LABS: MAGNESIUM 1.93 mg/dL (1.70-2.20)
== END ==
LOC: LAB 17:30
PROVIDERS: Family Medicine
DX: E61.1 Iron deficiency (principal); Z79.899 Other long term (current) drug therapy

== ENCOUNTER → 2019-10-29 | Outpatient (CLI) | payer OTHER ==
[2019-10-23 19:49] VITALS: BP 120/67
[2019-10-29 14:40] LABS: ALBUMIN 3.6 g/dL (3.5-5.0)
[2019-10-29 14:42] LABS: CALCIUM 7.7 mg/dL (8.3-10.5)
[2019-10-29 14:43] LABS: TOTAL PROTEIN 6.7 g/dL (6.4-8.3)
[2019-10-29 14:49] LABS: MAGNESIUM 1.99 mg/dL (1.70-2.20)
== END ==
LOC: LAB 13:11
PROVIDERS: Family Medicine
DX: E61.1 Iron deficiency (principal); Z79.899 Other long term (current) drug therapy

== ENCOUNTER 2019-11-04 13:30 | Outpatient (RCR) | payer OTHER ==
[2019-10-16 17:56] VITALS: BP 107/46
[2019-10-23 19:49] VITALS: BP 120/67
[2019-10-29 13:30] VITALS: BP 130/62
[~2019-11-04] VITALS: Ht 175.3 cm; Wt 77.3 kg
[2019-11-04 13:40] VITALS: BP 110/61
[2019-12-09] MEDS ORDERED: DIAZEPAM5 MG/1 ML IV (19:55)
[2019-12-09] MEDS ORDERED: ZOFRAN ODT4 MG PO (19:55)
[2019-12-09] MEDS ORDERED: BUPRENORPHINE HY8 MG SL (19:55)
[2019-12-09] MEDS ORDERED: BUPRENORPHINE1 EAC2 TD (19:56)
== END 2019-11-04 16:44 | disposition still patient (30) ==
LOC: AMSURD 13:30
DX: E34.0 Carcinoid syndrome (principal); Z79.899 Other long term (current) drug therapy

== ENCOUNTER → 2019-11-04 | Outpatient (CLI) | payer OTHER ==
[2019-10-29 13:30] VITALS: BP 130/62
[2019-11-04 16:41] LABS: HEMATOCRIT 34.7 % (37.0-47.0); RED BLOOD COUNT 4.04 M/mm3 (4.10-5.30); RED CELL DISTRIBUTION WIDTH 13.9 % (11.5-14.5); WHITE BLOOD COUNT 9.8 K/mm3 (4.8-10.8)
[2019-11-04 16:42] LABS: ALBUMIN 3.8 g/dL (3.5-5.0); POTASSIUM 4.2 mmol/L (3.5-5.1)
[2019-11-04 16:43] LABS: CALCIUM 8.9 mg/dL (8.3-10.5)
[2019-11-04 16:45] LABS: TOTAL PROTEIN 6.8 g/dL (6.4-8.3)
[2019-11-04 16:47] LABS: TOTAL BILIRUBIN 0.6 mg/dL (0.2-1.2)
[2019-11-04 17:21] LABS: MEAN PLATELET VOLUME 12.3 fl (7.4-10.4)
== END ==
LOC: RAD 13:12
PROVIDERS: Family Medicine
DX: K31.84 Gastroparesis (principal); Z93.1 Gastrostomy status; Z98.890 Other specified postprocedural states
CPT/HCPCS: Q9967

== ENCOUNTER → 2019-12-02 | Outpatient (CLI) | payer OTHER ==
[2019-11-04 13:40] VITALS: BP 110/61
[2019-12-02 19:11] LABS: ALBUMIN 3.4 g/dL (3.5-5.0); POTASSIUM 4.3 mmol/L (3.5-5.1)
[2019-12-02 19:12] LABS: BASO # 0.1 (0.02-0.10); CALCIUM 8.9 mg/dL (8.3-10.5); EOS # 0.5 (0.04-0.40); EOS % 5.5 % (1.0-5.0); HEMATOCRIT 33.5 % (37.0-47.0); HEMOGLOBIN 10.6 g/dL (12.5-16.0); LYMPH# 2.7 (1.50-4.00); MEAN CELL VOLUME 87 fl (78-100); MEAN CORPUSCULAR HEMOGLOBIN 28 pg (27-31); MEAN CORPUSCULAR HGB CONC 32 g/dL (33-37); MEAN PLATELET VOLUME 11.3 fl (7.4-10.4); MONO # 0.5 (0.20-0.80); NEU # 5.6 (1.40-6.50); PLATELET COUNT 481 K/mm3 (130-400); RED BLOOD COUNT 3.84 M/mm3 (4.10-5.30); WHITE BLOOD COUNT 9.4 K/mm3 (4.8-10.8)
[2019-12-02 19:13] LABS: TOTAL PROTEIN 6.2 g/dL (6.4-8.3)
[2019-12-02 19:15] LABS: TOTAL BILIRUBIN 0.7 mg/dL (0.2-1.2)
[2019-12-02 19:20] LABS: MAGNESIUM 1.66 mg/dL (1.60-2.60)
== END ==
LOC: LAB 18:40
PROVIDERS: Family Medicine
DX: E61.1 Iron deficiency (principal); Z79.891 Long term (current) use of opiate analgesic

== ENCOUNTER → 2019-12-09 | Outpatient (CLI) | payer OTHER ==
[~2019-12-09] MED LIST changes: +BUPRENORPHINE HY8 MG SL; +BUPRENORPHINE1 EAC2 TD; +DIAZEPAM5 MG/1 ML IV; +ZOFRAN ODT4 MG PO
[2019-12-09 19:35] LABS: EOS # 0.4 (0.04-0.40); HEMOGLOBIN 10.7 g/dL (12.5-16.0); MEAN CELL VOLUME 88 fl (78-100); MEAN CORPUSCULAR HEMOGLOBIN 28 pg (27-31); MEAN CORPUSCULAR HGB CONC 32 g/dL (33-37); MONO # 0.4 (0.20-0.80); NEU # 3.3 (1.40-6.50); PLATELET COUNT 351 K/mm3 (130-400); RED BLOOD COUNT 3.88 M/mm3 (4.10-5.30); RED CELL DISTRIBUTION WIDTH 12.9 % (11.5-14.5); WHITE BLOOD COUNT 7.1 K/mm3 (4.8-10.8)
[2019-12-09 19:37] LABS: ALBUMIN 3.5 g/dL (3.5-5.0)
[2019-12-09 19:38] LABS: MEAN PLATELET VOLUME 12.4 fl (7.4-10.4); POTASSIUM 3.6 mmol/L (3.5-5.1)
[2019-12-09 19:39] LABS: CALCIUM 9.1 mg/dL (8.3-10.5)
[2019-12-09 19:40] LABS: TOTAL PROTEIN 6.7 g/dL (6.4-8.3)
[2019-12-09 19:42] LABS: TOTAL BILIRUBIN 0.8 mg/dL (0.2-1.2)
[2019-12-09 19:47] LABS: MAGNESIUM 1.64 mg/dL (1.60-2.60)
== END ==
LOC: LAB 17:45
DX: Z45.2 Encounter for adjustment and management of vascular access device (principal); Z48.00 Encounter for change or removal of nonsurgical wound dressing

== ENCOUNTER → 2019-12-16 | Outpatient (CLI) | payer OTHER ==
[2019-12-09 17:50] VITALS: BP 108/61
[2019-12-16 18:52] LABS: EOS # 0.3 (0.04-0.40); EOS % 4.3 % (1.0-5.0); HEMATOCRIT 30.5 % (37.0-47.0); HEMOGLOBIN 9.6 g/dL (12.5-16.0); LYMPH# 3.1 (1.50-4.00); MEAN CELL VOLUME 88 fl (78-100); MEAN CORPUSCULAR HEMOGLOBIN 28 pg (27-31); MEAN CORPUSCULAR HGB CONC 32 g/dL (33-37); MONO # 0.3 (0.20-0.80); NEU # 3.4 (1.40-6.50); PLATELET COUNT 268 K/mm3 (130-400); RED BLOOD COUNT 3.45 M/mm3 (4.10-5.30); WHITE BLOOD COUNT 7.2 K/mm3 (4.8-10.8)
[2019-12-16 19:02] LABS: ALBUMIN 2.9 g/dL (3.5-5.0); POTASSIUM 3.3 mmol/L (3.5-5.1)
[2019-12-16 19:03] LABS: CALCIUM 7.6 mg/dL (8.3-10.5)
[2019-12-16 19:04] LABS: TOTAL PROTEIN 5.4 g/dL (6.4-8.3)
[2019-12-16 19:06] LABS: TOTAL BILIRUBIN 0.7 mg/dL (0.2-1.2)
[2019-12-16 19:11] LABS: MAGNESIUM 1.4 mg/dL (1.60-2.60)
== END ==
LOC: LAB 18:22
PROVIDERS: Family Medicine
DX: E61.1 Iron deficiency (principal)

== ENCOUNTER → 2019-12-23 | Outpatient (CLI) | payer OTHER ==
[2019-12-16 18:00] VITALS: BP 126/72
[~2019-12-23] MED LIST changes: +CALDOLOR IV; +TYLENOL 325MG325 MG IV
[2019-12-23 19:28] LABS: EOS # 0.2 (0.04-0.40); EOS % 1.8 % (1.0-5.0); HEMATOCRIT 34.7 % (37.0-47.0); HEMOGLOBIN 11.1 g/dL (12.5-16.0); LYMPH# 2.7 (1.50-4.00); MEAN CELL VOLUME 88 fl (78-100); MEAN CORPUSCULAR HEMOGLOBIN 28 pg (27-31); MEAN CORPUSCULAR HGB CONC 32 g/dL (33-37); MONO # 0.5 (0.20-0.80); NEU # 5.2 (1.40-6.50); PLATELET COUNT 299 K/mm3 (130-400); RED BLOOD COUNT 3.96 M/mm3 (4.10-5.30); WHITE BLOOD COUNT 8.5 K/mm3 (4.8-10.8)
[2019-12-23 19:31] LABS: MEAN PLATELET VOLUME 12.4 fl (7.4-10.4)
[2019-12-23 19:32] LABS: ALBUMIN 3.5 g/dL (3.5-5.0)
[2019-12-23 19:33] LABS: POTASSIUM 3.9 mmol/L (3.5-5.1)
[2019-12-23 19:34] LABS: CALCIUM 8.8 mg/dL (8.3-10.5)
[2019-12-23 19:35] LABS: TOTAL PROTEIN 6.7 g/dL (6.4-8.3)
[2019-12-23 19:37] LABS: TOTAL BILIRUBIN 0.6 mg/dL (0.2-1.2)
[2019-12-23 19:41] LABS: MAGNESIUM 1.64 mg/dL (1.60-2.60)
== END ==
LOC: LAB 17:05 → AMSURD 17:05
PROVIDERS: Family Medicine
DX: Z45.2 Encounter for adjustment and management of vascular access device (principal); Z48.00 Encounter for change or removal of nonsurgical wound dressing

== ENCOUNTER 2020-01-01 | Emergency (ER) | payer OTHER ==
[~2020-01-01] VITALS: Ht 172.7 cm; Wt 71.8 kg
[2020-01-01 01:15] LABS: HEMATOCRIT 31.1 % (37.0-47.0); MEAN CELL VOLUME 87 fl (78-100); MEAN CORPUSCULAR HEMOGLOBIN 28 pg (27-31); MEAN CORPUSCULAR HGB CONC 32 g/dL (33-37); MEAN PLATELET VOLUME 11.7 fl (7.4-10.4); PLATELET COUNT 201 K/mm3 (130-400); RED BLOOD COUNT 3.58 M/mm3 (4.10-5.30); RED CELL DISTRIBUTION WIDTH 12.9 % (11.5-14.5); WHITE BLOOD COUNT 5.6 K/mm3 (4.8-10.8)
[2020-01-01 01:23] LABS: ALBUMIN 3.2 g/dL (3.5-5.0); POTASSIUM 3.3 mmol/L (3.5-5.1)
[2020-01-01 01:24] LABS: CALCIUM 8.2 mg/dL (8.3-10.5)
[2020-01-01 01:27] LABS: TOTAL BILIRUBIN 0.9 mg/dL (0.2-1.2)
[2020-01-01 01:31] LABS: LYMPHOCYTE 12 % (20-51); MONOCYTE 2 % (3-10); NEUTROPHILS 86 % (42-75)
[2020-01-01 01:49] LABS: PH-URINE 5.5 (5.0 - 8.0); URINE APPEARANCE HAZY; URINE BILIRUBIN NEGATIVE (NEGATIVE); URINE COLOR YELLOW; URINE GLUCOSE NEGATIVE (NEGATIVE); URINE KETONE NEGATIVE (NEGATIVE); URINE PROTEIN(semi-quant) NEGATIVE (NEGATIVE)
[2020-01-01 01:50] LABS: URINE BLOOD TRACE (NEGATIVE); URINE LEUKOCYTE ESTERASE TRACE (NEGATIVE); URINE MUCUS PRESENT (NOT PRESENT); URINE NITRATE NEGATIVE (NEGATIVE); URINE UROBILINOGEN NORMAL (NORMAL)
[2020-01-01 02:54] LABS: D-DIMER 1.54 mg/L FEU (0.15-0.50)
[2020-01-01 07:06] VITALS: BP 118/62
== END 2020-01-01 06:40 | disposition home or self-care (01) ==
LOC: ED
PROVIDERS: Nurse Practitioner Family
DX: D89.9 Disorder involving the immune mechanism, unspecified (principal); R50.9 Fever, unspecified; R53.81 Other malaise; R53.83 Other fatigue; K31.84 Gastroparesis; K52.81 Eosinophilic gastritis or gastroenteritis; D89.40 Mast cell activation, unspecified; E53.8 Deficiency of other specified B group vitamins; Z79.1 Long term (current) use of non-steroidal anti-inflammatories (NSAID); Z93.1 Gastrostomy status; Z98.890 Other specified postprocedural states
CPT/HCPCS: A4216; J0696; J7030; J7050; Q9967

== ENCOUNTER 2020-01-02 19:16 | Outpatient (RCR) | payer OTHER ==
[2019-12-09 17:50] VITALS: BP 108/61
[2019-12-16 18:00] VITALS: BP 126/72
[2019-12-23 18:15] VITALS: BP 101/61
[2019-12-23 19:43] VITALS: BP 99/53
[2019-12-26 17:40] VITALS: BP 109/75
[2019-12-26 19:08] VITALS: BP 102/64
[2019-12-30 17:11] VITALS: BP 113/63
[2019-12-30 19:14] VITALS: BP 106/59
[2020-01-01 18:08] VITALS: BP 113/59
[~2020-01-02] VITALS: Ht 175.3 cm; Wt 77.3 kg
[2020-01-02 19:30] VITALS: BP 107/63
[2020-01-02 19:36] VITALS: BP 108/66
[2020-01-13] MEDS ORDERED: VANCO 1 GR1 GM/250 M IV (16:31)
[2020-02-24 15:50] VITALS: BP 106/58
== END 2020-03-08 | disposition still patient (30) ==
LOC: AMSURD
DX: Z48.00 Encounter for change or removal of nonsurgical wound dressing (principal); N39.0 Urinary tract infection, site not specified; D50.8 Other iron deficiency anemias; E34.0 Carcinoid syndrome; Z79.899 Other long term (current) drug therapy; Z95.828 Presence of other vascular implants and grafts
CPT/HCPCS: A4216; J0696; J1200; J2550; J2916; J7050

== ENCOUNTER → 2020-01-13 | Outpatient (CLI) | payer OTHER ==
[2020-01-02 19:36] VITALS: BP 108/66
[~2020-01-13] MED LIST changes: +VANCO 1 GR1 GM/250 M IV
[2020-01-13 16:51] LABS: EOS # 0.2 (0.04-0.40); EOS % 2.7 % (1.0-5.0); HEMATOCRIT 32.1 % (37.0-47.0); HEMOGLOBIN 10.1 g/dL (12.5-16.0); LYMPH# 2.9 (1.50-4.00); MEAN CELL VOLUME 89 fl (78-100); MEAN CORPUSCULAR HEMOGLOBIN 28 pg (27-31); MEAN CORPUSCULAR HGB CONC 32 g/dL (33-37); MEAN PLATELET VOLUME 10.9 fl (7.4-10.4); MONO # 0.5 (0.20-0.80); NEU # 3.8 (1.40-6.50); PLATELET COUNT 361 K/mm3 (130-400); RED BLOOD COUNT 3.62 M/mm3 (4.10-5.30); RED CELL DISTRIBUTION WIDTH 13.7 % (11.5-14.5); WHITE BLOOD COUNT 7.4 K/mm3 (4.8-10.8)
[2020-01-13 16:57] LABS: ALBUMIN 3.7 g/dL (3.5-5.0); POTASSIUM 3.9 mmol/L (3.5-5.1)
[2020-01-13 16:58] LABS: CALCIUM 8.8 mg/dL (8.3-10.5)
[2020-01-13 17:00] LABS: TOTAL PROTEIN 6.8 g/dL (6.4-8.3)
[2020-01-13 17:01] LABS: TOTAL BILIRUBIN 0.8 mg/dL (0.2-1.2)
[2020-01-13 17:06] LABS: MAGNESIUM 1.95 mg/dL (1.60-2.60)
== END ==
LOC: LAB 15:55
PROVIDERS: Family Medicine
DX: Z45.2 Encounter for adjustment and management of vascular access device (principal); Z48.00 Encounter for change or removal of nonsurgical wound dressing

== ENCOUNTER → 2020-01-17 | Outpatient (CLI) | payer OTHER ==
[2020-01-13 16:45] VITALS: BP 118/75
[2020-01-17 12:10] LABS: HEMATOCRIT 31.7 % (37.0-47.0); HEMOGLOBIN 9.8 g/dL (12.5-16.0); RED BLOOD COUNT 3.54 M/mm3 (4.10-5.30); RED CELL DISTRIBUTION WIDTH 13.9 % (11.5-14.5); WHITE BLOOD COUNT 4.8 K/mm3 (4.8-10.8)
[2020-01-17 12:12] LABS: ALBUMIN 3.4 g/dL (3.5-5.0); POTASSIUM 4.3 mmol/L (3.5-5.1)
[2020-01-17 12:13] LABS: CALCIUM 8.5 mg/dL (8.3-10.5)
[2020-01-17 12:14] LABS: TOTAL PROTEIN 6.4 g/dL (6.4-8.3)
[2020-01-17 12:16] LABS: TOTAL BILIRUBIN 0.7 mg/dL (0.2-1.2)
[2020-01-17 12:20] LABS: MEAN PLATELET VOLUME 12.1 fl (7.4-10.4)
== END ==
LOC: LAB 10:40
PROVIDERS: Family Medicine
DX: E34.0 Carcinoid syndrome (principal); K52.81 Eosinophilic gastritis or gastroenteritis

== ENCOUNTER → 2020-01-20 | Outpatient (CLI) | payer OTHER ==
[2020-01-13 16:45] VITALS: BP 118/75
[2020-01-20 17:17] LABS: EOS # 0.1 (0.04-0.40); EOS % 2.1 % (1.0-5.0); HEMATOCRIT 34.1 % (37.0-47.0); HEMOGLOBIN 10.6 g/dL (12.5-16.0); LYMPH# 2.4 (1.50-4.00); MEAN CELL VOLUME 90 fl (78-100); MEAN CORPUSCULAR HEMOGLOBIN 28 pg (27-31); MEAN CORPUSCULAR HGB CONC 31 g/dL (33-37); MEAN PLATELET VOLUME 11.5 fl (7.4-10.4); MONO # 0.4 (0.20-0.80); NEU # 2.8 (1.40-6.50); PLATELET COUNT 289 K/mm3 (130-400); RED BLOOD COUNT 3.81 M/mm3 (4.10-5.30); RED CELL DISTRIBUTION WIDTH 13.9 % (11.5-14.5); WHITE BLOOD COUNT 5.8 K/mm3 (4.8-10.8)
[2020-01-20 17:25] LABS: ALBUMIN 3.7 g/dL (3.5-5.0)
[2020-01-20 17:26] LABS: CALCIUM 9.1 mg/dL (8.3-10.5)
[2020-01-20 17:29] LABS: TOTAL BILIRUBIN 0.8 mg/dL (0.2-1.2)
[2020-01-20 17:34] LABS: MAGNESIUM 1.82 mg/dL (1.60-2.60)
== END ==
LOC: LAB 16:30
PROVIDERS: Family Medicine
DX: Z45.2 Encounter for adjustment and management of vascular access device (principal); Z48.01 Encounter for change or removal of surgical wound dressing

== ENCOUNTER → 2020-01-27 | Outpatient (CLI) | payer OTHER ==
[2020-01-20 17:30] VITALS: BP 103/58
[2020-01-27 18:08] LABS: BASO # 0.1 (0.02-0.10); EOS # 0.3 (0.04-0.40); EOS % 3.4 % (1.0-5.0); HEMATOCRIT 36.2 % (37.0-47.0); HEMOGLOBIN 11.4 g/dL (12.5-16.0); LYMPH# 2.8 (1.50-4.00); MEAN CELL VOLUME 89 fl (78-100); MEAN CORPUSCULAR HEMOGLOBIN 28 pg (27-31); MEAN CORPUSCULAR HGB CONC 32 g/dL (33-37); MEAN PLATELET VOLUME 11.3 fl (7.4-10.4); MONO # 0.5 (0.20-0.80); PLATELET COUNT 288 K/mm3 (130-400); RED BLOOD COUNT 4.06 M/mm3 (4.10-5.30); RED CELL DISTRIBUTION WIDTH 13.7 % (11.5-14.5); WHITE BLOOD COUNT 7.7 K/mm3 (4.8-10.8)
[2020-01-27 18:11] LABS: ALBUMIN 3.9 g/dL (3.5-5.0); POTASSIUM 4.4 mmol/L (3.5-5.1)
[2020-01-27 18:12] LABS: CALCIUM 9.1 mg/dL (8.3-10.5)
[2020-01-27 18:14] LABS: TOTAL PROTEIN 7.1 g/dL (6.4-8.3)
[2020-01-27 18:15] LABS: TOTAL BILIRUBIN 0.6 mg/dL (0.2-1.2)
[2020-01-27 18:20] LABS: MAGNESIUM 1.9 mg/dL (1.60-2.60)
== END ==
LOC: LAB 17:17
DX: Z45.2 Encounter for adjustment and management of vascular access device (principal); Z48.00 Encounter for change or removal of nonsurgical wound dressing

== ENCOUNTER → 2020-02-03 | Outpatient (CLI) | payer OTHER ==
[2020-01-27 17:56] VITALS: BP 108/58
[2020-02-03 17:45] LABS: ALBUMIN 3.8 g/dL (3.5-5.0)
[2020-02-03 17:46] LABS: CALCIUM 8.9 mg/dL (8.3-10.5)
[2020-02-03 17:47] LABS: TOTAL PROTEIN 6.9 g/dL (6.4-8.3)
[2020-02-03 17:49] LABS: TOTAL BILIRUBIN 0.8 mg/dL (0.2-1.2)
[2020-02-03 17:53] LABS: MAGNESIUM 1.74 mg/dL (1.60-2.60)
[2020-02-03 18:12] LABS: EOS # 0.2 (0.04-0.40); EOS % 2.1 % (1.0-5.0); HEMATOCRIT 35.2 % (37.0-47.0); LYMPH# 2.9 (1.50-4.00); MEAN CELL VOLUME 88 fl (78-100); MEAN CORPUSCULAR HEMOGLOBIN 28 pg (27-31); MEAN CORPUSCULAR HGB CONC 31 g/dL (33-37); MEAN PLATELET VOLUME 11.6 fl (7.4-10.4); MONO # 0.5 (0.20-0.80); NEU # 4.6 (1.40-6.50); PLATELET COUNT 291 K/mm3 (130-400); RED BLOOD COUNT 3.99 M/mm3 (4.10-5.30); RED CELL DISTRIBUTION WIDTH 13.1 % (11.5-14.5); WHITE BLOOD COUNT 8.2 K/mm3 (4.8-10.8)
== END ==
LOC: LAB 17:13
PROVIDERS: Nurse Practitioner
DX: Z45.2 Encounter for adjustment and management of vascular access device (principal); Z48.00 Encounter for change or removal of nonsurgical wound dressing

== ENCOUNTER → 2020-02-10 | Outpatient (CLI) | payer OTHER ==
[2020-02-03 17:30] VITALS: BP 107/64
[2020-02-10 17:56] LABS: EOS # 0.2 (0.04-0.40); EOS % 3.1 % (1.0-5.0); HEMATOCRIT 34.8 % (37.0-47.0); LYMPH# 2.9 (1.50-4.00); MEAN CELL VOLUME 89 fl (78-100); MEAN CORPUSCULAR HEMOGLOBIN 28 pg (27-31); MEAN CORPUSCULAR HGB CONC 32 g/dL (33-37); MEAN PLATELET VOLUME 11.6 fl (7.4-10.4); MONO # 0.4 (0.20-0.80); NEU # 2.6 (1.40-6.50); PLATELET COUNT 269 K/mm3 (130-400); RED BLOOD COUNT 3.93 M/mm3 (4.10-5.30); RED CELL DISTRIBUTION WIDTH 12.8 % (11.5-14.5); WHITE BLOOD COUNT 6.1 K/mm3 (4.8-10.8)
[2020-02-10 18:00] LABS: ALBUMIN 3.8 g/dL (3.5-5.0); POTASSIUM 3.9 mmol/L (3.5-5.1)
[2020-02-10 18:03] LABS: TOTAL PROTEIN 6.8 g/dL (6.4-8.3)
[2020-02-10 18:04] LABS: TOTAL BILIRUBIN 0.7 mg/dL (0.2-1.2)
[2020-02-10 18:09] LABS: MAGNESIUM 1.78 mg/dL (1.60-2.60)
== END ==
LOC: LAB 17:18
PROVIDERS: Family Medicine
DX: Z48.01 Encounter for change or removal of surgical wound dressing (principal); Z95.828 Presence of other vascular implants and grafts

== ENCOUNTER → 2020-02-17 | Outpatient (CLI) | payer OTHER ==
[2020-02-10 18:28] VITALS: BP 103/71
[2020-02-17 17:51] LABS: EOS # 0.3 (0.04-0.40); EOS % 2.6 % (1.0-5.0); LYMPH# 3.7 (1.50-4.00); MEAN CELL VOLUME 88 fl (78-100); MEAN CORPUSCULAR HEMOGLOBIN 28 pg (27-31); MEAN CORPUSCULAR HGB CONC 32 g/dL (33-37); MEAN PLATELET VOLUME 11.8 fl (7.4-10.4); MONO # 0.6 (0.20-0.80); NEU # 5.1 (1.40-6.50); PLATELET COUNT 305 K/mm3 (130-400); RED CELL DISTRIBUTION WIDTH 12.8 % (11.5-14.5); WHITE BLOOD COUNT 9.7 K/mm3 (4.8-10.8)
[2020-02-17 17:55] LABS: ALBUMIN 4.1 g/dL (3.5-5.0)
[2020-02-17 17:56] LABS: CALCIUM 9.4 mg/dL (8.3-10.5)
[2020-02-17 17:58] LABS: TOTAL PROTEIN 7.5 g/dL (6.4-8.3)
[2020-02-17 17:59] LABS: TOTAL BILIRUBIN 1.1 mg/dL (0.2-1.2)
[2020-02-17 18:04] LABS: MAGNESIUM 1.77 mg/dL (1.60-2.60)
== END ==
LOC: LAB 15:20
PROVIDERS: Family Medicine
DX: Z48.01 Encounter for change or removal of surgical wound dressing (principal); Z95.828 Presence of other vascular implants and grafts

== ENCOUNTER → 2020-02-24 | Outpatient (CLI) | payer OTHER ==
[2020-02-17 17:19] VITALS: BP 111/75
[2020-02-24 15:38] LABS: EOS # 0.2 (0.04-0.40); HEMATOCRIT 35.2 % (37.0-47.0); HEMOGLOBIN 11.3 g/dL (12.5-16.0); LYMPH# 2.9 (1.50-4.00); MEAN CELL VOLUME 88 fl (78-100); MEAN CORPUSCULAR HEMOGLOBIN 28 pg (27-31); MEAN CORPUSCULAR HGB CONC 32 g/dL (33-37); MEAN PLATELET VOLUME 11.1 fl (7.4-10.4); MONO # 0.5 (0.20-0.80); NEU # 3.4 (1.40-6.50); PLATELET COUNT 293 K/mm3 (130-400); RED BLOOD COUNT 4.01 M/mm3 (4.10-5.30); RED CELL DISTRIBUTION WIDTH 12.6 % (11.5-14.5); WHITE BLOOD COUNT 7.1 K/mm3 (4.8-10.8)
[2020-02-24 15:49] LABS: ALBUMIN 3.9 g/dL (3.5-5.0); POTASSIUM 4.1 mmol/L (3.5-5.1)
[2020-02-24 15:50] LABS: CALCIUM 9.2 mg/dL (8.3-10.5)
[2020-02-24 15:52] LABS: TOTAL PROTEIN 6.9 g/dL (6.4-8.3)
[2020-02-24 15:53] LABS: TOTAL BILIRUBIN 0.5 mg/dL (0.2-1.2)
[2020-02-24 15:58] LABS: MAGNESIUM 1.91 mg/dL (1.60-2.60)
== END ==
LOC: LAB 15:22
PROVIDERS: Family Medicine
DX: Z48.01 Encounter for change or removal of surgical wound dressing (principal); K59.8 Other specified functional intestinal disorders; I49.8 Other specified cardiac arrhythmias; R11.2 Nausea with vomiting, unspecified; Z95.828 Presence of other vascular implants and grafts

== ENCOUNTER 2020-03-02 17:05 | Outpatient (RCR) | payer OTHER ==
[2020-01-13 16:45] VITALS: BP 118/75
[2020-01-20 17:30] VITALS: BP 103/58
[2020-01-27 17:56] VITALS: BP 108/58
[2020-02-03 17:30] VITALS: BP 107/64
[2020-02-10 18:28] VITALS: BP 103/71
[2020-02-17 17:19] VITALS: BP 111/75
[2020-02-24 16:17] VITALS: BP 106/58
[~2020-03-02] VITALS: Ht 175.3 cm; Wt 77.3 kg
[2020-03-02 17:44] VITALS: BP 102/59
== END 2020-04-12 | disposition home or self-care (01) ==
LOC: AMSURD
DX: Z48.00 Encounter for change or removal of nonsurgical wound dressing (principal)

== ENCOUNTER → 2020-03-02 | Outpatient (CLI) | payer OTHER ==
[2020-02-24 16:17] VITALS: BP 106/58
[2020-03-02 17:44] LABS: POTASSIUM 3.9 mmol/L (3.5-5.1)
[2020-03-02 17:45] LABS: CALCIUM 9.3 mg/dL (8.3-10.5)
[2020-03-02 17:46] LABS: TOTAL PROTEIN 7.4 g/dL (6.4-8.3)
[2020-03-02 17:48] LABS: TOTAL BILIRUBIN 0.7 mg/dL (0.2-1.2)
[2020-03-02 17:54] LABS: EOS # 0.2 (0.04-0.40); EOS % 2.3 % (1.0-5.0); HEMATOCRIT 36.9 % (37.0-47.0); HEMOGLOBIN 12.1 g/dL (12.5-16.0); LYMPH# 2.6 (1.50-4.00); MAGNESIUM 1.81 mg/dL (1.60-2.60); MEAN CELL VOLUME 86 fl (78-100); MEAN CORPUSCULAR HEMOGLOBIN 28 pg (27-31); MEAN CORPUSCULAR HGB CONC 33 g/dL (33-37); MEAN PLATELET VOLUME 11.3 fl (7.4-10.4); MONO # 0.5 (0.20-0.80); NEU # 5.8 (1.40-6.50); PLATELET COUNT 315 K/mm3 (130-400); RED BLOOD COUNT 4.29 M/mm3 (4.10-5.30); RED CELL DISTRIBUTION WIDTH 12.4 % (11.5-14.5); WHITE BLOOD COUNT 9.1 K/mm3 (4.8-10.8)
== END ==
LOC: LAB 17:10
PROVIDERS: Family Medicine
DX: K59.8 Other specified functional intestinal disorders (principal); I49.8 Other specified cardiac arrhythmias; R11.2 Nausea with vomiting, unspecified

== ENCOUNTER → 2020-03-16 | Outpatient (CLI) | payer OTHER ==
[2020-03-10 10:30] VITALS: BP 113/59
[2020-03-16 17:23] LABS: BASO # 0.1 (0.02-0.10); EOS # 0.2 (0.04-0.40); EOS % 2.1 % (1.0-5.0); HEMATOCRIT 36.4 % (37.0-47.0); HEMOGLOBIN 11.6 g/dL (12.5-16.0); LYMPH# 2.8 (1.50-4.00); MEAN CELL VOLUME 88 fl (78-100); MEAN CORPUSCULAR HEMOGLOBIN 28 pg (27-31); MEAN CORPUSCULAR HGB CONC 32 g/dL (33-37); MEAN PLATELET VOLUME 11.1 fl (7.4-10.4); MONO # 0.5 (0.20-0.80); NEU # 6.5 (1.40-6.50); PLATELET COUNT 332 K/mm3 (130-400); RED BLOOD COUNT 4.16 M/mm3 (4.10-5.30); RED CELL DISTRIBUTION WIDTH 12.5 % (11.5-14.5); WHITE BLOOD COUNT 10.1 K/mm3 (4.8-10.8)
[2020-03-16 17:38] LABS: ALBUMIN 4.1 g/dL (3.5-5.0)
[2020-03-16 17:39] LABS: POTASSIUM 4.3 mmol/L (3.5-5.1)
[2020-03-16 17:40] LABS: CALCIUM 9.5 mg/dL (8.3-10.5)
[2020-03-16 17:41] LABS: TOTAL PROTEIN 7.4 g/dL (6.4-8.3)
[2020-03-16 17:43] LABS: TOTAL BILIRUBIN 0.6 mg/dL (0.2-1.2)
[2020-03-16 17:47] LABS: MAGNESIUM 2.05 mg/dL (1.60-2.60)
== END ==
LOC: LAB 17:09
PROVIDERS: Family Medicine
DX: K59.8 Other specified functional intestinal disorders (principal); I49.8 Other specified cardiac arrhythmias; Z78.9 Other specified health status

== ENCOUNTER → 2020-03-23 | Outpatient (CLI) | payer OTHER ==
[2020-03-16 17:30] VITALS: BP 109/60
[2020-03-23 17:57] LABS: EOS # 0.3 (0.04-0.40); EOS % 3.1 % (1.0-5.0); HEMOGLOBIN 11.6 g/dL (12.5-16.0); LYMPH# 2.8 (1.50-4.00); MEAN CELL VOLUME 88 fl (78-100); MEAN CORPUSCULAR HEMOGLOBIN 28 pg (27-31); MEAN CORPUSCULAR HGB CONC 31 g/dL (33-37); MEAN PLATELET VOLUME 11.5 fl (7.4-10.4); MONO # 0.5 (0.20-0.80); NEU # 4.8 (1.40-6.50); PLATELET COUNT 341 K/mm3 (130-400); RED BLOOD COUNT 4.21 M/mm3 (4.10-5.30); RED CELL DISTRIBUTION WIDTH 12.6 % (11.5-14.5); WHITE BLOOD COUNT 8.3 K/mm3 (4.8-10.8)
[2020-03-23 18:00] LABS: ALBUMIN 4.1 g/dL (3.5-5.0); POTASSIUM 3.9 mmol/L (3.5-5.1)
[2020-03-23 18:01] LABS: CALCIUM 9.4 mg/dL (8.3-10.5)
[2020-03-23 18:02] LABS: TOTAL PROTEIN 7.4 g/dL (6.4-8.3)
[2020-03-23 18:04] LABS: TOTAL BILIRUBIN 0.9 mg/dL (0.2-1.2)
[2020-03-23 18:09] LABS: MAGNESIUM 1.78 mg/dL (1.60-2.60)
== END ==
LOC: LAB 17:04
PROVIDERS: Family Medicine
DX: K59.8 Other specified functional intestinal disorders (principal); I49.8 Other specified cardiac arrhythmias

== ENCOUNTER → 2020-03-30 | Outpatient (CLI) | payer OTHER ==
[2020-03-23 17:00] VITALS: BP 91/55
[2020-03-30 17:35] LABS: EOS # 0.2 (0.04-0.40); EOS % 2.3 % (1.0-5.0); HEMATOCRIT 35.1 % (37.0-47.0); HEMOGLOBIN 11.2 g/dL (12.5-16.0); LYMPH# 2.8 (1.50-4.00); MEAN CELL VOLUME 89 fl (78-100); MEAN CORPUSCULAR HEMOGLOBIN 28 pg (27-31); MEAN CORPUSCULAR HGB CONC 32 g/dL (33-37); MONO # 0.5 (0.20-0.80); PLATELET COUNT 315 K/mm3 (130-400); RED BLOOD COUNT 3.96 M/mm3 (4.10-5.30); RED CELL DISTRIBUTION WIDTH 12.5 % (11.5-14.5); WHITE BLOOD COUNT 7.4 K/mm3 (4.8-10.8)
[2020-03-30 17:43] LABS: POTASSIUM 4.1 mmol/L (3.5-5.1)
[2020-03-30 17:45] LABS: TOTAL PROTEIN 7.2 g/dL (6.4-8.3)
[2020-03-30 17:47] LABS: TOTAL BILIRUBIN 0.7 mg/dL (0.2-1.2)
[2020-03-30 17:52] LABS: MAGNESIUM 1.93 mg/dL (1.60-2.60)
== END ==
LOC: LAB 17:07
PROVIDERS: Family Medicine
DX: I49.8 Other specified cardiac arrhythmias (principal); K59.8 Other specified functional intestinal disorders

== ENCOUNTER 2020-04-06 17:08 | Outpatient (RCR) | payer OTHER ==
[2020-03-10 10:30] VITALS: BP 113/59
[2020-03-16 17:30] VITALS: BP 109/60
[2020-03-23 17:00] VITALS: BP 91/55
[2020-03-30 18:25] VITALS: BP 107/71
[~2020-04-06] VITALS: Ht 175.3 cm; Wt 77.3 kg
== END 2020-04-06 20:00 | disposition home or self-care (01) ==
LOC: AMSURD 17:08
DX: E34.0 Carcinoid syndrome (principal); N39.0 Urinary tract infection, site not specified; D50.8 Other iron deficiency anemias; Z79.899 Other long term (current) drug therapy; K52.81 Eosinophilic gastritis or gastroenteritis; Z95.828 Presence of other vascular implants and grafts; Z78.9 Other specified health status

== ENCOUNTER → 2020-04-06 | Outpatient (CLI) | payer OTHER ==
[2020-03-30 18:25] VITALS: BP 107/71
[2020-04-06 18:05] LABS: HEMATOCRIT 35.2 % (37.0-47.0); HEMOGLOBIN 11.3 g/dL (12.5-16.0); RED BLOOD COUNT 3.96 M/mm3 (4.10-5.30); RED CELL DISTRIBUTION WIDTH 12.3 % (11.5-14.5); WHITE BLOOD COUNT 7.3 K/mm3 (4.8-10.8)
[2020-04-06 18:09] LABS: ALBUMIN 3.9 g/dL (3.5-5.0); POTASSIUM 3.9 mmol/L (3.5-5.1)
[2020-04-06 18:12] LABS: TOTAL PROTEIN 6.9 g/dL (6.4-8.3)
[2020-04-06 18:14] LABS: TOTAL BILIRUBIN 0.9 mg/dL (0.2-1.2)
[2020-04-06 18:19] LABS: MAGNESIUM 1.84 mg/dL (1.60-2.60)
== END ==
LOC: LAB 17:58
PROVIDERS: Family Medicine
DX: E34.0 Carcinoid syndrome (principal); K52.81 Eosinophilic gastritis or gastroenteritis

== ENCOUNTER → 2020-04-13 | Outpatient (CLI) | payer OTHER ==
[2020-03-30 18:25] VITALS: BP 107/71
[2020-04-13 17:32] LABS: EOS # 0.2 (0.04-0.40); EOS % 2.5 % (1.0-5.0); HEMOGLOBIN 11.2 g/dL (12.5-16.0); LYMPH# 2.3 (1.50-4.00); MEAN CELL VOLUME 89 fl (78-100); MEAN CORPUSCULAR HEMOGLOBIN 28 pg (27-31); MEAN CORPUSCULAR HGB CONC 32 g/dL (33-37); MEAN PLATELET VOLUME 11.1 fl (7.4-10.4); MONO # 0.5 (0.20-0.80); NEU # 5.8 (1.40-6.50); PLATELET COUNT 300 K/mm3 (130-400); RED BLOOD COUNT 3.95 M/mm3 (4.10-5.30); RED CELL DISTRIBUTION WIDTH 12.3 % (11.5-14.5); WHITE BLOOD COUNT 8.9 K/mm3 (4.8-10.8)
[2020-04-13 17:37] LABS: CALCIUM 8.8 mg/dL (8.3-10.5)
[2020-04-13 17:39] LABS: TOTAL PROTEIN 7.5 g/dL (6.4-8.3)
[2020-04-13 17:40] LABS: TOTAL BILIRUBIN 0.6 mg/dL (0.2-1.2)
[2020-04-13 17:45] LABS: MAGNESIUM 1.88 mg/dL (1.60-2.60)
== END ==
LOC: LAB 17:03
PROVIDERS: Family Medicine
DX: K59.8 Other specified functional intestinal disorders (principal); I49.8 Other specified cardiac arrhythmias

== ENCOUNTER → 2020-04-20 | Outpatient (CLI) | payer OTHER ==
[2020-04-13 17:11] VITALS: BP 103/65
[2020-04-20 19:21] LABS: EOS # 0.2 (0.04-0.40); HEMATOCRIT 34.7 % (37.0-47.0); HEMOGLOBIN 11.1 g/dL (12.5-16.0); LYMPH# 2.3 (1.50-4.00); MEAN CELL VOLUME 88 fl (78-100); MEAN CORPUSCULAR HEMOGLOBIN 28 pg (27-31); MEAN CORPUSCULAR HGB CONC 32 g/dL (33-37); MEAN PLATELET VOLUME 11.4 fl (7.4-10.4); MONO # 0.4 (0.20-0.80); NEU # 4.8 (1.40-6.50); PLATELET COUNT 290 K/mm3 (130-400); RED BLOOD COUNT 3.93 M/mm3 (4.10-5.30); RED CELL DISTRIBUTION WIDTH 12.5 % (11.5-14.5); WHITE BLOOD COUNT 7.7 K/mm3 (4.8-10.8)
[2020-04-20 19:25] LABS: ALBUMIN 3.9 g/dL (3.5-5.0)
[2020-04-20 19:27] LABS: CALCIUM 8.8 mg/dL (8.3-10.5)
[2020-04-20 19:28] LABS: TOTAL PROTEIN 7.4 g/dL (6.4-8.3)
[2020-04-20 19:30] LABS: TOTAL BILIRUBIN 0.8 mg/dL (0.2-1.2)
[2020-04-20 19:34] LABS: MAGNESIUM 1.91 mg/dL (1.60-2.60)
== END ==
LOC: LAB 18:55
PROVIDERS: Family Medicine
DX: I49.8 Other specified cardiac arrhythmias (principal); K59.8 Other specified functional intestinal disorders

== ENCOUNTER → 2020-04-27 | Outpatient (CLI) | payer OTHER ==
[2020-04-20 18:15] VITALS: BP 123/79
[2020-04-27 17:22] LABS: EOS # 0.2 (0.04-0.40); EOS % 2.1 % (1.0-5.0); HEMATOCRIT 36.1 % (37.0-47.0); HEMOGLOBIN 11.5 g/dL (12.5-16.0); LYMPH# 2.3 (1.50-4.00); MEAN CELL VOLUME 89 fl (78-100); MEAN CORPUSCULAR HEMOGLOBIN 28 pg (27-31); MEAN CORPUSCULAR HGB CONC 32 g/dL (33-37); MEAN PLATELET VOLUME 10.9 fl (7.4-10.4); MONO # 0.4 (0.20-0.80); NEU # 4.7 (1.40-6.50); PLATELET COUNT 336 K/mm3 (130-400); RED BLOOD COUNT 4.06 M/mm3 (4.10-5.30); RED CELL DISTRIBUTION WIDTH 12.5 % (11.5-14.5); WHITE BLOOD COUNT 7.6 K/mm3 (4.8-10.8)
[2020-04-27 17:28] LABS: ALBUMIN 4.1 g/dL (3.5-5.0)
[2020-04-27 17:30] LABS: CALCIUM 8.7 mg/dL (8.3-10.5)
[2020-04-27 17:31] LABS: TOTAL PROTEIN 7.5 g/dL (6.4-8.3)
[2020-04-27 17:33] LABS: TOTAL BILIRUBIN 0.7 mg/dL (0.2-1.2)
[2020-04-27 17:38] LABS: MAGNESIUM 1.88 mg/dL (1.60-2.60)
== END ==
LOC: LAB 17:04
PROVIDERS: Family Medicine
DX: I49.8 Other specified cardiac arrhythmias (principal); K59.8 Other specified functional intestinal disorders

== ENCOUNTER → 2020-05-11 | Outpatient (CLI) | payer OTHER ==
[2020-04-27 17:31] VITALS: BP 102/71
[2020-05-11 17:37] LABS: BASO # 0.1 (0.02-0.10); EOS # 0.3 (0.04-0.40); EOS % 2.8 % (1.0-5.0); HEMATOCRIT 36.4 % (37.0-47.0); HEMOGLOBIN 11.6 g/dL (12.5-16.0); LYMPH# 3.4 (1.50-4.00); MEAN CELL VOLUME 89 fl (78-100); MEAN CORPUSCULAR HEMOGLOBIN 28 pg (27-31); MEAN CORPUSCULAR HGB CONC 32 g/dL (33-37); MEAN PLATELET VOLUME 11.2 fl (7.4-10.4); MONO # 0.5 (0.20-0.80); NEU # 5.3 (1.40-6.50); PLATELET COUNT 306 K/mm3 (130-400); RED BLOOD COUNT 4.09 M/mm3 (4.10-5.30); RED CELL DISTRIBUTION WIDTH 12.3 % (11.5-14.5); WHITE BLOOD COUNT 9.5 K/mm3 (4.8-10.8)
[2020-05-11 17:51] LABS: ALBUMIN 4.1 g/dL (3.5-5.0); POTASSIUM 3.9 mmol/L (3.5-5.1)
[2020-05-11 17:52] LABS: CALCIUM 9.1 mg/dL (8.3-10.5)
[2020-05-11 17:54] LABS: TOTAL PROTEIN 7.6 g/dL (6.4-8.3)
[2020-05-11 17:55] LABS: TOTAL BILIRUBIN 0.9 mg/dL (0.2-1.2)
[2020-05-11 18:00] LABS: MAGNESIUM 1.78 mg/dL (1.60-2.60)
== END ==
LOC: LAB 17:06
PROVIDERS: Family Medicine
DX: K59.8 Other specified functional intestinal disorders (principal); I49.8 Other specified cardiac arrhythmias

== ENCOUNTER → 2020-05-18 | Outpatient (CLI) | payer OTHER ==
[2020-05-11 17:45] VITALS: BP 103/66
[2020-05-18 17:30] LABS: EOS # 0.2 (0.04-0.40); EOS % 1.8 % (1.0-5.0); HEMATOCRIT 37.7 % (37.0-47.0); HEMOGLOBIN 12.1 g/dL (12.5-16.0); MEAN CELL VOLUME 88 fl (78-100); MEAN CORPUSCULAR HEMOGLOBIN 28 pg (27-31); MEAN CORPUSCULAR HGB CONC 32 g/dL (33-37); MEAN PLATELET VOLUME 11.2 fl (7.4-10.4); MONO # 0.4 (0.20-0.80); NEU # 4.6 (1.40-6.50); PLATELET COUNT 330 K/mm3 (130-400); RED BLOOD COUNT 4.28 M/mm3 (4.10-5.30); RED CELL DISTRIBUTION WIDTH 12.2 % (11.5-14.5); WHITE BLOOD COUNT 8.2 K/mm3 (4.8-10.8)
[2020-05-18 17:48] LABS: ALBUMIN 4.2 g/dL (3.5-5.0); POTASSIUM 4.2 mmol/L (3.5-5.1)
[2020-05-18 17:49] LABS: CALCIUM 9.3 mg/dL (8.3-10.5)
[2020-05-18 17:52] LABS: TOTAL BILIRUBIN 0.9 mg/dL (0.2-1.2)
[2020-05-18 17:57] LABS: MAGNESIUM 1.96 mg/dL (1.60-2.60)
== END ==
LOC: LAB 17:04
PROVIDERS: Family Medicine
DX: Z01.89 Encounter for other specified special examinations (principal)

== ENCOUNTER → 2020-05-25 | Outpatient (CLI) | payer OTHER ==
[2020-05-18 18:00] VITALS: BP 106/68
[2020-05-25 18:03] LABS: EOS # 0.1 (0.04-0.40); EOS % 0.8 % (1.0-5.0); HEMATOCRIT 37.5 % (37.0-47.0); HEMOGLOBIN 11.9 g/dL (12.5-16.0); LYMPH# 2.4 (1.50-4.00); MEAN CELL VOLUME 89 fl (78-100); MEAN CORPUSCULAR HEMOGLOBIN 28 pg (27-31); MEAN CORPUSCULAR HGB CONC 32 g/dL (33-37); MEAN PLATELET VOLUME 11.1 fl (7.4-10.4); MONO # 0.5 (0.20-0.80); NEU # 5.9 (1.40-6.50); PLATELET COUNT 325 K/mm3 (130-400); RED BLOOD COUNT 4.22 M/mm3 (4.10-5.30); RED CELL DISTRIBUTION WIDTH 12.5 % (11.5-14.5); WHITE BLOOD COUNT 8.9 K/mm3 (4.8-10.8)
[2020-05-25 18:06] LABS: ALBUMIN 4.2 g/dL (3.5-5.0); POTASSIUM 3.8 mmol/L (3.5-5.1)
[2020-05-25 18:07] LABS: CALCIUM 9.2 mg/dL (8.3-10.5)
[2020-05-25 18:09] LABS: TOTAL PROTEIN 7.5 g/dL (6.4-8.3)
[2020-05-25 18:10] LABS: TOTAL BILIRUBIN 1.2 mg/dL (0.2-1.2)
[2020-05-25 18:15] LABS: MAGNESIUM 1.88 mg/dL (1.60-2.60)
== END ==
LOC: LAB 17:23
PROVIDERS: Family Medicine
DX: Z01.89 Encounter for other specified special examinations (principal)

== ENCOUNTER → 2020-06-01 | Outpatient (CLI) | payer OTHER ==
[2020-05-25 19:07] VITALS: BP 113/70
[2020-06-01 17:21] LABS: EOS # 0.1 (0.04-0.40); EOS % 1.2 % (1.0-5.0); HEMOGLOBIN 12.1 g/dL (12.5-16.0); LYMPH# 2.9 (1.50-4.00); MEAN CELL VOLUME 89 fl (78-100); MEAN CORPUSCULAR HEMOGLOBIN 28 pg (27-31); MEAN CORPUSCULAR HGB CONC 32 g/dL (33-37); MEAN PLATELET VOLUME 11.6 fl (7.4-10.4); MONO # 0.5 (0.20-0.80); NEU # 6.9 (1.40-6.50); PLATELET COUNT 305 K/mm3 (130-400); RED BLOOD COUNT 4.28 M/mm3 (4.10-5.30); RED CELL DISTRIBUTION WIDTH 12.5 % (11.5-14.5); WHITE BLOOD COUNT 10.5 K/mm3 (4.8-10.8)
[2020-06-01 17:28] LABS: ALBUMIN 4.2 g/dL (3.5-5.0)
[2020-06-01 17:29] LABS: POTASSIUM 3.8 mmol/L (3.5-5.1)
[2020-06-01 17:30] LABS: CALCIUM 9.2 mg/dL (8.3-10.5)
[2020-06-01 17:31] LABS: TOTAL PROTEIN 7.5 g/dL (6.4-8.3)
[2020-06-01 17:37] LABS: MAGNESIUM 1.95 mg/dL (1.60-2.60)
== END ==
LOC: LAB 16:57
PROVIDERS: Family Medicine
DX: K59.8 Other specified functional intestinal disorders (principal); I49.8 Other specified cardiac arrhythmias

== ENCOUNTER → 2020-06-08 | Outpatient (CLI) | payer OTHER ==
[2020-06-01 17:30] VITALS: BP 114/81
[2020-06-08 17:23] LABS: EOS # 0.1 (0.04-0.40); EOS % 1.3 % (1.0-5.0); HEMATOCRIT 38.5 % (37.0-47.0); HEMOGLOBIN 12.4 g/dL (12.5-16.0); LYMPH# 2.6 (1.50-4.00); MEAN CELL VOLUME 88 fl (78-100); MEAN CORPUSCULAR HEMOGLOBIN 28 pg (27-31); MEAN CORPUSCULAR HGB CONC 32 g/dL (33-37); MEAN PLATELET VOLUME 11.6 fl (7.4-10.4); MONO # 0.6 (0.20-0.80); NEU # 6.4 (1.40-6.50); PLATELET COUNT 273 K/mm3 (130-400); RED CELL DISTRIBUTION WIDTH 12.4 % (11.5-14.5); WHITE BLOOD COUNT 9.8 K/mm3 (4.8-10.8)
[2020-06-08 17:32] LABS: ALBUMIN 4.2 g/dL (3.5-5.0); POTASSIUM 3.9 mmol/L (3.5-5.1)
[2020-06-08 17:33] LABS: CALCIUM 9.2 mg/dL (8.3-10.5)
[2020-06-08 17:35] LABS: TOTAL PROTEIN 7.4 g/dL (6.4-8.3)
[2020-06-08 17:36] LABS: TOTAL BILIRUBIN 0.7 mg/dL (0.2-1.2)
[2020-06-08 17:42] LABS: MAGNESIUM 1.92 mg/dL (1.60-2.60)
== END ==
LOC: LAB 16:57
PROVIDERS: Family Medicine
DX: K59.8 Other specified functional intestinal disorders (principal); I49.8 Other specified cardiac arrhythmias

== ENCOUNTER 2020-06-15 17:00 | Outpatient (RCR) | payer OTHER ==
[2020-04-13 17:11] VITALS: BP 103/65
[2020-04-20 18:15] VITALS: BP 123/79
[2020-04-27 17:31] VITALS: BP 102/71
[2020-05-11 17:45] VITALS: BP 103/66
[2020-05-18 18:00] VITALS: BP 106/68
[2020-05-25 19:07] VITALS: BP 113/70
[2020-06-01 17:14] VITALS: BP 114/81
[2020-06-01 17:30] VITALS: BP 114/81
[2020-06-08 17:00] VITALS: BP 109/68
[~2020-06-15] VITALS: Ht 175.3 cm; Wt 77.3 kg
[2020-06-15 17:30] VITALS: BP 101/66
[2020-07-19] MEDS ORDERED: DURAGESIC1 EACH TD (16:46)
== END 2020-06-15 17:30 | disposition still patient (30) ==
LOC: AMSURD 17:00
DX: E34.0 Carcinoid syndrome (principal); K59.8 Other specified functional intestinal disorders; I49.8 Other specified cardiac arrhythmias; R11.2 Nausea with vomiting, unspecified

== ENCOUNTER → 2020-06-15 | Outpatient (CLI) | payer OTHER ==
[2020-06-08 17:00] VITALS: BP 109/68
[2020-06-15 17:25] LABS: EOS # 0.1 (0.04-0.40); EOS % 1.3 % (1.0-5.0); HEMATOCRIT 37.6 % (37.0-47.0); HEMOGLOBIN 12.1 g/dL (12.5-16.0); MEAN CELL VOLUME 88 fl (78-100); MEAN CORPUSCULAR HEMOGLOBIN 28 pg (27-31); MEAN CORPUSCULAR HGB CONC 32 g/dL (33-37); MEAN PLATELET VOLUME 11.5 fl (7.4-10.4); MONO # 0.5 (0.20-0.80); NEU # 5.1 (1.40-6.50); PLATELET COUNT 288 K/mm3 (130-400); RED BLOOD COUNT 4.26 M/mm3 (4.10-5.30); RED CELL DISTRIBUTION WIDTH 12.4 % (11.5-14.5); WHITE BLOOD COUNT 8.7 K/mm3 (4.8-10.8)
[2020-06-15 17:36] LABS: POTASSIUM 3.9 mmol/L (3.5-5.1)
[2020-06-15 17:37] LABS: CALCIUM 9.1 mg/dL (8.3-10.5)
[2020-06-15 17:38] LABS: TOTAL PROTEIN 7.1 g/dL (6.4-8.3)
[2020-06-15 17:40] LABS: TOTAL BILIRUBIN 0.7 mg/dL (0.2-1.2)
[2020-06-15 17:44] LABS: MAGNESIUM 1.86 mg/dL (1.60-2.60)
== END ==
LOC: LAB 17:10
PROVIDERS: Family Medicine
DX: Z01.89 Encounter for other specified special examinations (principal)

== ENCOUNTER → 2020-07-19 | Outpatient (CLI) | payer OTHER ==
[~2020-07-19] MED LIST changes: +DURAGESIC1 EACH TD
[2020-07-19 17:34] LABS: POTASSIUM 4.5 mmol/L (3.5-5.1)
[2020-07-19 17:35] LABS: CALCIUM 9.1 mg/dL (8.3-10.5)
[2020-07-19 17:37] LABS: TOTAL PROTEIN 6.9 g/dL (6.4-8.3)
[2020-07-19 17:38] LABS: TOTAL BILIRUBIN 0.7 mg/dL (0.2-1.2)
[2020-07-19 17:43] LABS: MAGNESIUM 1.88 mg/dL (1.60-2.60)
[2020-07-19 17:48] LABS: BASO # 0.1 (0.02-0.10); EOS # 0.4 (0.04-0.40); HEMATOCRIT 34.5 % (37.0-47.0); HEMOGLOBIN 11.3 g/dL (12.5-16.0); LYMPH# 3.1 (1.50-4.00); MEAN CELL VOLUME 87 fl (78-100); MEAN CORPUSCULAR HEMOGLOBIN 28 pg (27-31); MEAN CORPUSCULAR HGB CONC 33 g/dL (33-37); MEAN PLATELET VOLUME 11.5 fl (7.4-10.4); MONO # 0.5 (0.20-0.80); NEU # 5.1 (1.40-6.50); PLATELET COUNT 436 K/mm3 (130-400); RED BLOOD COUNT 3.98 M/mm3 (4.10-5.30); RED CELL DISTRIBUTION WIDTH 12.8 % (11.5-14.5); WHITE BLOOD COUNT 9.1 K/mm3 (4.8-10.8)
== END ==
LOC: LAB 16:42
PROVIDERS: Family Medicine
DX: K52.81 Eosinophilic gastritis or gastroenteritis (principal)

== ENCOUNTER → 2020-08-03 | Outpatient (CLI) | payer OTHER ==
[2020-07-27 17:10] VITALS: BP 106/62
[2020-08-03 18:40] LABS: BASO # 0.1 (0.02-0.10); EOS # 0.1 (0.04-0.40); EOS % 1.3 % (1.0-5.0); HEMATOCRIT 35.4 % (37.0-47.0); HEMOGLOBIN 11.4 g/dL (12.5-16.0); LYMPH# 3.3 (1.50-4.00); MEAN CELL VOLUME 87 fl (78-100); MEAN CORPUSCULAR HEMOGLOBIN 28 pg (27-31); MEAN CORPUSCULAR HGB CONC 32 g/dL (33-37); MEAN PLATELET VOLUME 11.6 fl (7.4-10.4); MONO # 0.5 (0.20-0.80); NEU # 4.6 (1.40-6.50); PLATELET COUNT 338 K/mm3 (130-400); RED BLOOD COUNT 4.09 M/mm3 (4.10-5.30); RED CELL DISTRIBUTION WIDTH 12.6 % (11.5-14.5); WHITE BLOOD COUNT 8.7 K/mm3 (4.8-10.8)
[2020-08-03 18:42] LABS: ALBUMIN 3.8 g/dL (3.5-5.0)
[2020-08-03 18:45] LABS: TOTAL PROTEIN 7.4 g/dL (6.4-8.3)
[2020-08-03 18:47] LABS: TOTAL BILIRUBIN 0.9 mg/dL (0.2-1.2)
[2020-08-03 18:51] LABS: MAGNESIUM 1.9 mg/dL (1.60-2.60)
== END ==
LOC: LAB 17:09
PROVIDERS: Family Medicine
DX: Z01.89 Encounter for other specified special examinations (principal)

== ENCOUNTER → 2020-08-10 | Outpatient (CLI) | payer OTHER ==
[2020-08-03 18:43] VITALS: BP 121/79
[2020-08-10 19:28] LABS: EOS # 0.1 (0.04-0.40); EOS % 1.5 % (1.0-5.0); HEMATOCRIT 35.3 % (37.0-47.0); HEMOGLOBIN 11.4 g/dL (12.5-16.0); LYMPH# 3.5 (1.50-4.00); MEAN CELL VOLUME 86 fl (78-100); MEAN CORPUSCULAR HEMOGLOBIN 28 pg (27-31); MEAN CORPUSCULAR HGB CONC 32 g/dL (33-37); MONO # 0.4 (0.20-0.80); NEU # 3.8 (1.40-6.50); PLATELET COUNT 292 K/mm3 (130-400); RED CELL DISTRIBUTION WIDTH 12.5 % (11.5-14.5); WHITE BLOOD COUNT 7.9 K/mm3 (4.8-10.8)
[2020-08-10 19:33] LABS: MEAN PLATELET VOLUME 12.1 fl (7.4-10.4)
[2020-08-10 19:35] LABS: ALBUMIN 3.7 g/dL (3.5-5.0); POTASSIUM 3.8 mmol/L (3.5-5.1)
[2020-08-10 19:36] LABS: CALCIUM 8.9 mg/dL (8.3-10.5)
[2020-08-10 19:38] LABS: TOTAL PROTEIN 7.4 g/dL (6.4-8.3)
[2020-08-10 19:39] LABS: TOTAL BILIRUBIN 0.8 mg/dL (0.2-1.2)
[2020-08-10 19:44] LABS: MAGNESIUM 1.85 mg/dL (1.60-2.60)
== END ==
LOC: LAB 17:10
PROVIDERS: Family Medicine
DX: Z45.2 Encounter for adjustment and management of vascular access device (principal); I49.8 Other specified cardiac arrhythmias; K59.89 Other specified functional intestinal disorders; R11.2 Nausea with vomiting, unspecified

== ENCOUNTER → 2020-08-18 | Outpatient (CLI) | payer OTHER ==
[2020-08-10 17:15] VITALS: BP 124/76
[2020-08-18 18:09] LABS: EOS # 0.2 (0.04-0.40); EOS % 2.1 % (1.0-5.0); HEMATOCRIT 35.9 % (37.0-47.0); HEMOGLOBIN 11.5 g/dL (12.5-16.0); LYMPH# 3.3 (1.50-4.00); MEAN CELL VOLUME 86 fl (78-100); MEAN CORPUSCULAR HEMOGLOBIN 28 pg (27-31); MEAN CORPUSCULAR HGB CONC 32 g/dL (33-37); MEAN PLATELET VOLUME 11.7 fl (7.4-10.4); MONO # 0.5 (0.20-0.80); NEU # 4.6 (1.40-6.50); PLATELET COUNT 295 K/mm3 (130-400); RED BLOOD COUNT 4.16 M/mm3 (4.10-5.30); RED CELL DISTRIBUTION WIDTH 12.5 % (11.5-14.5); WHITE BLOOD COUNT 8.5 K/mm3 (4.8-10.8)
[2020-08-18 18:17] LABS: ALBUMIN 3.8 g/dL (3.5-5.0); POTASSIUM 4.1 mmol/L (3.5-5.1)
[2020-08-18 18:19] LABS: CALCIUM 9.1 mg/dL (8.3-10.5)
[2020-08-18 18:20] LABS: TOTAL PROTEIN 7.4 g/dL (6.4-8.3)
[2020-08-18 18:26] LABS: MAGNESIUM 1.9 mg/dL (1.60-2.60)
== END ==
LOC: LAB 17:12
PROVIDERS: Family Medicine
DX: Z01.89 Encounter for other specified special examinations (principal)

== ENCOUNTER → 2020-08-24 | Outpatient (CLI) | payer OTHER ==
[2020-08-18 17:24] VITALS: BP 121/69
[2020-08-24 18:34] LABS: EOS # 0.2 (0.04-0.40); EOS % 2.4 % (1.0-5.0); HEMATOCRIT 35.5 % (37.0-47.0); HEMOGLOBIN 11.6 g/dL (12.5-16.0); MEAN CELL VOLUME 85 fl (78-100); MEAN CORPUSCULAR HEMOGLOBIN 28 pg (27-31); MEAN CORPUSCULAR HGB CONC 33 g/dL (33-37); MEAN PLATELET VOLUME 11.5 fl (7.4-10.4); MONO # 0.5 (0.20-0.80); NEU # 4.2 (1.40-6.50); PLATELET COUNT 319 K/mm3 (130-400); RED BLOOD COUNT 4.17 M/mm3 (4.10-5.30); RED CELL DISTRIBUTION WIDTH 12.4 % (11.5-14.5)
[2020-08-24 18:44] LABS: ALBUMIN 3.8 g/dL (3.5-5.0); POTASSIUM 3.8 mmol/L (3.5-5.1)
[2020-08-24 18:45] LABS: CALCIUM 9.2 mg/dL (8.3-10.5)
[2020-08-24 18:47] LABS: TOTAL PROTEIN 7.2 g/dL (6.4-8.3)
[2020-08-24 18:48] LABS: TOTAL BILIRUBIN 0.8 mg/dL (0.2-1.2)
[2020-08-24 18:53] LABS: MAGNESIUM 1.93 mg/dL (1.60-2.60)
[2020-08-24 20:07] LABS: ERYTHROCYTE SEDIMENTATION RATE 32 mm/hr (0-20)
== END ==
LOC: LAB 18:37
PROVIDERS: Family Medicine
DX: K52.81 Eosinophilic gastritis or gastroenteritis (principal)

== ENCOUNTER → 2020-09-01 | Outpatient (CLI) | payer OTHER ==
[2020-08-24 18:00] VITALS: BP 107/76
[2020-09-01 18:09] LABS: EOS # 0.2 (0.04-0.40); EOS % 2.4 % (1.0-5.0); HEMATOCRIT 35.1 % (37.0-47.0); HEMOGLOBIN 11.3 g/dL (12.5-16.0); LYMPH# 3.6 (1.50-4.00); MEAN CELL VOLUME 86 fl (78-100); MEAN CORPUSCULAR HEMOGLOBIN 28 pg (27-31); MEAN CORPUSCULAR HGB CONC 32 g/dL (33-37); MEAN PLATELET VOLUME 11.3 fl (7.4-10.4); MONO # 0.4 (0.20-0.80); NEU # 3.6 (1.40-6.50); PLATELET COUNT 299 K/mm3 (130-400); RED BLOOD COUNT 4.09 M/mm3 (4.10-5.30); RED CELL DISTRIBUTION WIDTH 12.3 % (11.5-14.5); WHITE BLOOD COUNT 7.8 K/mm3 (4.8-10.8)
[2020-09-01 18:15] LABS: ALBUMIN 3.7 g/dL (3.5-5.0)
[2020-09-01 18:16] LABS: CALCIUM 8.8 mg/dL (8.3-10.5)
[2020-09-01 18:18] LABS: TOTAL PROTEIN 6.8 g/dL (6.4-8.3)
[2020-09-01 18:19] LABS: TOTAL BILIRUBIN 0.9 mg/dL (0.2-1.2)
[2020-09-01 18:25] LABS: MAGNESIUM 1.96 mg/dL (1.60-2.60)
== END ==
LOC: LAB 17:08
PROVIDERS: Family Medicine
DX: Z45.2 Encounter for adjustment and management of vascular access device (principal)

== ENCOUNTER → 2020-09-08 | Outpatient (CLI) | payer OTHER ==
[2020-09-01 17:30] VITALS: BP 117/69
[2020-09-08 18:24] LABS: EOS # 0.1 (0.04-0.40); EOS % 1.6 % (1.0-5.0); HEMATOCRIT 35.2 % (37.0-47.0); HEMOGLOBIN 11.2 g/dL (12.5-16.0); LYMPH# 3.1 (1.50-4.00); MEAN CELL VOLUME 86 fl (78-100); MEAN CORPUSCULAR HEMOGLOBIN 27 pg (27-31); MEAN CORPUSCULAR HGB CONC 32 g/dL (33-37); MEAN PLATELET VOLUME 11.7 fl (7.4-10.4); MONO # 0.5 (0.20-0.80); NEU # 4.3 (1.40-6.50); PLATELET COUNT 304 K/mm3 (130-400); RED CELL DISTRIBUTION WIDTH 12.3 % (11.5-14.5); WHITE BLOOD COUNT 8.1 K/mm3 (4.8-10.8)
[2020-09-08 18:26] LABS: ALBUMIN 3.6 g/dL (3.5-5.0)
[2020-09-08 18:27] LABS: POTASSIUM 3.9 mmol/L (3.5-5.1)
[2020-09-08 18:28] LABS: CALCIUM 8.7 mg/dL (8.3-10.5)
[2020-09-08 18:29] LABS: TOTAL PROTEIN 6.6 g/dL (6.4-8.3)
[2020-09-08 18:36] LABS: MAGNESIUM 1.9 mg/dL (1.60-2.60)
== END ==
LOC: LAB 17:19
PROVIDERS: Family Medicine
DX: K52.81 Eosinophilic gastritis or gastroenteritis (principal)

== ENCOUNTER → 2020-09-15 | Outpatient (CLI) | payer OTHER ==
[2020-09-08 17:30] VITALS: BP 118/67
[~2020-09-15] MED LIST changes: +BUTRANS20 MCG/HR TD; +BUTRANS5 MCG/HR TD; +DEPO-MEDRO20 MG/1 ML IJ; +NARCAN4 MG NS
[2020-09-15 17:14] LABS: EOS # 0.2 (0.04-0.40); EOS % 1.9 % (1.0-5.0); HEMATOCRIT 35.5 % (37.0-47.0); HEMOGLOBIN 11.3 g/dL (12.5-16.0); MEAN CELL VOLUME 86 fl (78-100); MEAN CORPUSCULAR HEMOGLOBIN 27 pg (27-31); MEAN CORPUSCULAR HGB CONC 32 g/dL (33-37); MEAN PLATELET VOLUME 11.7 fl (7.4-10.4); MONO # 0.4 (0.20-0.80); NEU # 4.2 (1.40-6.50); PLATELET COUNT 306 K/mm3 (130-400); RED BLOOD COUNT 4.15 M/mm3 (4.10-5.30); RED CELL DISTRIBUTION WIDTH 12.1 % (11.5-14.5); WHITE BLOOD COUNT 7.7 K/mm3 (4.8-10.8)
[2020-09-15 17:19] LABS: ALBUMIN 3.7 g/dL (3.5-5.0); POTASSIUM 3.7 mmol/L (3.5-5.1)
[2020-09-15 17:22] LABS: TOTAL PROTEIN 6.9 g/dL (6.4-8.3)
[2020-09-15 17:23] LABS: TOTAL BILIRUBIN 0.7 mg/dL (0.2-1.2)
[2020-09-15 17:28] LABS: MAGNESIUM 1.94 mg/dL (1.60-2.60)
== END ==
LOC: LAB 16:03
PROVIDERS: Family Medicine
DX: K52.81 Eosinophilic gastritis or gastroenteritis (principal); I49.8 Other specified cardiac arrhythmias; K59.89 Other specified functional intestinal disorders

== ENCOUNTER → 2020-09-27 | Outpatient (CLI) | payer OTHER ==
[2020-09-21 17:00] VITALS: BP 113/54
[2020-09-28 01:30] LABS: EOS # 0.2 (0.04-0.40); EOS % 1.9 % (1.0-5.0); HEMATOCRIT 37.4 % (37.0-47.0); HEMOGLOBIN 11.7 g/dL (12.5-16.0); LYMPH# 2.8 (1.50-4.00); MEAN CELL VOLUME 87 fl (78-100); MEAN CORPUSCULAR HEMOGLOBIN 27 pg (27-31); MEAN CORPUSCULAR HGB CONC 31 g/dL (33-37); MONO # 0.6 (0.20-0.80); NEU # 4.6 (1.40-6.50); PLATELET COUNT 301 K/mm3 (130-400); RED CELL DISTRIBUTION WIDTH 12.2 % (11.5-14.5); WHITE BLOOD COUNT 8.3 K/mm3 (4.8-10.8)
[2020-09-28 01:32] LABS: ALBUMIN 3.8 g/dL (3.5-5.0)
[2020-09-28 01:33] LABS: CALCIUM 9.1 mg/dL (8.3-10.5)
[2020-09-28 01:36] LABS: TOTAL BILIRUBIN 0.8 mg/dL (0.2-1.2)
[2020-09-28 01:41] LABS: MAGNESIUM 1.86 mg/dL (1.60-2.60)
[2020-09-28 01:44] LABS: MEAN PLATELET VOLUME 12.3 fl (7.4-10.4)
== END ==
LOC: LAB 17:08
PROVIDERS: Family Medicine
DX: I49.8 Other specified cardiac arrhythmias (principal); R11.2 Nausea with vomiting, unspecified

== ENCOUNTER → 2020-10-05 | Outpatient (CLI) | payer OTHER ==
[2020-09-27 17:30] VITALS: BP 106/77
[2020-10-05 17:38] LABS: EOS # 0.1 (0.04-0.40); EOS % 1.9 % (1.0-5.0); HEMATOCRIT 36.6 % (37.0-47.0); HEMOGLOBIN 11.6 g/dL (12.5-16.0); LYMPH# 3.3 (1.50-4.00); MEAN CELL VOLUME 86 fl (78-100); MEAN CORPUSCULAR HEMOGLOBIN 27 pg (27-31); MEAN CORPUSCULAR HGB CONC 32 g/dL (33-37); MEAN PLATELET VOLUME 11.7 fl (7.4-10.4); MONO # 0.4 (0.20-0.80); NEU # 3.6 (1.40-6.50); PLATELET COUNT 277 K/mm3 (130-400); RED BLOOD COUNT 4.27 M/mm3 (4.10-5.30); RED CELL DISTRIBUTION WIDTH 12.4 % (11.5-14.5); WHITE BLOOD COUNT 7.5 K/mm3 (4.8-10.8)
[2020-10-05 17:46] LABS: ALBUMIN 3.9 g/dL (3.5-5.0); POTASSIUM 3.8 mmol/L (3.5-5.1)
[2020-10-05 17:47] LABS: CALCIUM 8.9 mg/dL (8.3-10.5)
[2020-10-05 17:48] LABS: TOTAL PROTEIN 6.7 g/dL (6.4-8.3)
[2020-10-05 17:50] LABS: TOTAL BILIRUBIN 1.1 mg/dL (0.2-1.2)
[2020-10-05 17:55] LABS: MAGNESIUM 1.96 mg/dL (1.60-2.60)
== END ==
LOC: LAB 16:55
PROVIDERS: Family Medicine
DX: I49.8 Other specified cardiac arrhythmias (principal); R11.2 Nausea with vomiting, unspecified

== ENCOUNTER → 2020-10-12 | Outpatient (RCR) | payer OTHER ==
[2020-07-19 16:46] VITALS: BP 106/67
--- NOTE | 2020-07-19 17:00 | NUR ---
Maxx blood from dual port a cath and sent to lab. Removed old port-a-cath and replaced needles with 1 inch needles per pt's statement on which needles worked best. Fransisca Schilling, RN assisted this nurse in replacing pike needles x2 in dual port a cath site using sterile technique. Once accessed, both ports return blood and flush without resistance or discomfort to pt. Site secured using tegaderm and steri-strips. Pt tolerated well. Ambulates out of facility to [facility], no further needs or concerns at this time. States she will return on Monday, July 27 for next needle change and blood draw.
[2020-07-27 17:10] VITALS: BP 106/62
[2020-08-03 18:43] VITALS: BP 121/79
[2020-08-10 17:15] VITALS: BP 124/76
[2020-08-18 17:24] VITALS: BP 121/69
[2020-08-24 18:00] VITALS: BP 107/76
[2020-09-01 17:30] VITALS: BP 117/69
[2020-09-08 17:30] VITALS: BP 118/67
[2020-09-15 16:30] VITALS: BP 114/77
[2020-09-21 17:00] VITALS: BP 113/54
[2020-09-27 17:30] VITALS: BP 106/77
[2020-10-05 18:00] VITALS: BP 115/76
[~2020-10-12] VITALS: Ht 175.3 cm; Wt 77.3 kg
[2020-10-12 17:30] VITALS: BP 111/69
== END | disposition home or self-care (01) ==
LOC: AMSURD
DX: E34.0 Carcinoid syndrome (principal); K59.89 Other specified functional intestinal disorders; I49.8 Other specified cardiac arrhythmias

== ENCOUNTER → 2020-10-12 | Outpatient (CLI) | payer OTHER ==
[2020-10-05 18:00] VITALS: BP 115/76
[2020-10-12 17:51] LABS: EOS # 0.2 (0.04-0.40); EOS % 2.2 % (1.0-5.0); HEMATOCRIT 36.9 % (37.0-47.0); HEMOGLOBIN 11.6 g/dL (12.5-16.0); LYMPH# 2.9 (1.50-4.00); MEAN CELL VOLUME 86 fl (78-100); MEAN CORPUSCULAR HEMOGLOBIN 27 pg (27-31); MEAN CORPUSCULAR HGB CONC 31 g/dL (33-37); MEAN PLATELET VOLUME 12.3 fl (7.4-10.4); MONO # 0.5 (0.20-0.80); NEU # 3.8 (1.40-6.50); PLATELET COUNT 273 K/mm3 (130-400); RED BLOOD COUNT 4.31 M/mm3 (4.10-5.30); RED CELL DISTRIBUTION WIDTH 12.7 % (11.5-14.5); WHITE BLOOD COUNT 7.4 K/mm3 (4.8-10.8)
[2020-10-12 18:00] LABS: ALBUMIN 4.1 g/dL (3.5-5.0); POTASSIUM 3.9 mmol/L (3.5-5.1)
[2020-10-12 18:01] LABS: CALCIUM 9.1 mg/dL (8.3-10.5)
[2020-10-12 18:03] LABS: TOTAL PROTEIN 7.1 g/dL (6.4-8.3)
[2020-10-12 18:09] LABS: MAGNESIUM 1.96 mg/dL (1.60-2.60)
== END ==
LOC: LAB 17:12
PROVIDERS: Family Medicine
DX: I49.8 Other specified cardiac arrhythmias (principal)

== ENCOUNTER → 2020-10-19 | Outpatient (CLI) | payer OTHER ==
[2020-10-12 17:30] VITALS: BP 111/69
[2020-10-19 18:18] LABS: EOS # 0.2 (0.04-0.40); EOS % 2.1 % (1.0-5.0); HEMATOCRIT 35.6 % (37.0-47.0); HEMOGLOBIN 11.3 g/dL (12.5-16.0); LYMPH# 3.2 (1.50-4.00); MEAN CELL VOLUME 85 fl (78-100); MEAN CORPUSCULAR HEMOGLOBIN 27 pg (27-31); MEAN CORPUSCULAR HGB CONC 32 g/dL (33-37); MONO # 0.5 (0.20-0.80); NEU # 3.4 (1.40-6.50); PLATELET COUNT 235 K/mm3 (130-400); RED BLOOD COUNT 4.18 M/mm3 (4.10-5.30); RED CELL DISTRIBUTION WIDTH 12.7 % (11.5-14.5); WHITE BLOOD COUNT 7.3 K/mm3 (4.8-10.8)
[2020-10-19 18:20] LABS: MEAN PLATELET VOLUME 12.6 fl (7.4-10.4)
[2020-10-19 18:29] LABS: ALBUMIN 3.8 g/dL (3.5-5.0)
[2020-10-19 18:30] LABS: CALCIUM 8.9 mg/dL (8.3-10.5)
[2020-10-19 18:32] LABS: TOTAL PROTEIN 6.7 g/dL (6.4-8.3)
[2020-10-19 18:38] LABS: MAGNESIUM 1.88 mg/dL (1.60-2.60)
== END ==
LOC: LAB 16:57
PROVIDERS: Family Medicine
DX: K52.81 Eosinophilic gastritis or gastroenteritis (principal); I49.8 Other specified cardiac arrhythmias

== ENCOUNTER → 2020-10-26 | Outpatient (CLI) | payer OTHER ==
[2020-10-19 17:30] VITALS: BP 119/67
[2020-10-26 18:01] LABS: EOS # 0.2 (0.04-0.40); EOS % 2.5 % (1.0-5.0); HEMATOCRIT 35.2 % (37.0-47.0); HEMOGLOBIN 11.3 g/dL (12.5-16.0); LYMPH# 3.2 (1.50-4.00); MEAN CELL VOLUME 86 fl (78-100); MEAN CORPUSCULAR HEMOGLOBIN 28 pg (27-31); MEAN CORPUSCULAR HGB CONC 32 g/dL (33-37); MONO # 0.5 (0.20-0.80); NEU # 2.7 (1.40-6.50); PLATELET COUNT 234 K/mm3 (130-400); RED BLOOD COUNT 4.11 M/mm3 (4.10-5.30); WHITE BLOOD COUNT 6.5 K/mm3 (4.8-10.8)
[2020-10-26 18:08] LABS: ALBUMIN 3.8 g/dL (3.5-5.0); POTASSIUM 3.9 mmol/L (3.5-5.1)
[2020-10-26 18:09] LABS: CALCIUM 8.8 mg/dL (8.3-10.5)
[2020-10-26 18:10] LABS: TOTAL PROTEIN 6.6 g/dL (6.4-8.3)
[2020-10-26 18:12] LABS: TOTAL BILIRUBIN 1.2 mg/dL (0.2-1.2)
[2020-10-26 18:15] LABS: MEAN PLATELET VOLUME 12.6 fl (7.4-10.4)
[2020-10-26 18:17] LABS: MAGNESIUM 1.9 mg/dL (1.60-2.60)
== END ==
LOC: LAB 17:04
PROVIDERS: Family Medicine
DX: K52.81 Eosinophilic gastritis or gastroenteritis (principal); I49.8 Other specified cardiac arrhythmias

== ENCOUNTER → 2020-11-03 | Outpatient (CLI) | payer OTHER ==
[2020-10-26 17:43] VITALS: BP 111/64
[2020-11-03 18:03] LABS: EOS # 0.2 (0.04-0.40); EOS % 2.5 % (1.0-5.0); HEMATOCRIT 35.4 % (37.0-47.0); HEMOGLOBIN 11.1 g/dL (12.5-16.0); MEAN CELL VOLUME 85 fl (78-100); MEAN CORPUSCULAR HEMOGLOBIN 27 pg (27-31); MEAN CORPUSCULAR HGB CONC 31 g/dL (33-37); MONO # 0.5 (0.20-0.80); NEU # 2.7 (1.40-6.50); PLATELET COUNT 238 K/mm3 (130-400); RED BLOOD COUNT 4.15 M/mm3 (4.10-5.30); WHITE BLOOD COUNT 6.3 K/mm3 (4.8-10.8)
[2020-11-03 18:04] LABS: ALBUMIN 3.8 g/dL (3.5-5.0)
[2020-11-03 18:05] LABS: MEAN PLATELET VOLUME 12.6 fl (7.4-10.4); POTASSIUM 3.9 mmol/L (3.5-5.1)
[2020-11-03 18:06] LABS: CALCIUM 8.8 mg/dL (8.3-10.5)
[2020-11-03 18:07] LABS: TOTAL PROTEIN 6.8 g/dL (6.4-8.3)
[2020-11-03 18:09] LABS: TOTAL BILIRUBIN 1.3 mg/dL (0.2-1.2)
[2020-11-03 18:13] LABS: MAGNESIUM 1.9 mg/dL (1.60-2.60)
== END ==
LOC: LAB 17:05
PROVIDERS: Family Medicine
DX: K52.81 Eosinophilic gastritis or gastroenteritis (principal)

== ENCOUNTER → 2020-11-09 | Outpatient (CLI) | payer OTHER ==
[2020-11-03 17:58] VITALS: BP 102/77
[2020-11-09 18:20] LABS: EOS # 0.1 (0.04-0.40); EOS % 2.3 % (1.0-5.0); HEMATOCRIT 34.4 % (37.0-47.0); LYMPH# 2.8 (1.50-4.00); MEAN CELL VOLUME 85 fl (78-100); MEAN CORPUSCULAR HEMOGLOBIN 27 pg (27-31); MEAN CORPUSCULAR HGB CONC 32 g/dL (33-37); MONO # 0.3 (0.20-0.80); NEU # 2.4 (1.40-6.50); PLATELET COUNT 239 K/mm3 (130-400); RED BLOOD COUNT 4.06 M/mm3 (4.10-5.30); RED CELL DISTRIBUTION WIDTH 12.9 % (11.5-14.5); WHITE BLOOD COUNT 5.7 K/mm3 (4.8-10.8)
[2020-11-09 18:37] LABS: MEAN PLATELET VOLUME 12.2 fl (7.4-10.4)
[2020-11-09 18:46] LABS: ALBUMIN 3.8 g/dL (3.5-5.0); POTASSIUM 3.9 mmol/L (3.5-5.1)
[2020-11-09 18:48] LABS: CALCIUM 8.6 mg/dL (8.3-10.5)
[2020-11-09 18:49] LABS: TOTAL PROTEIN 6.6 g/dL (6.4-8.3)
[2020-11-09 18:51] LABS: TOTAL BILIRUBIN 1.3 mg/dL (0.2-1.2)
[2020-11-09 18:55] LABS: MAGNESIUM 1.9 mg/dL (1.60-2.60)
[2020-11-09 19:25] LABS: PROTHROMBIN TIME 10.5 SECONDS (9.0-12.0)
[2020-11-11 03:45] LABS: CERULOPLASMIN 29 mg/dL (20-60)
[2020-11-12 08:18] LABS: VITAMIN E 7.1 mg/L (())
[2020-11-12 12:00] LABS: SELENIUM, SERUM AMS
[2020-11-13 10:20] LABS: VITAMIN A 32.8 mcg/dL (())
== END ==
LOC: LAB 17:12
PROVIDERS: Family Medicine
DX: I49.8 Other specified cardiac arrhythmias (principal); R11.2 Nausea with vomiting, unspecified

== ENCOUNTER → 2020-11-16 | Outpatient (CLI) | payer OTHER ==
[2020-11-09 19:09] VITALS: BP 106/45
[2020-11-16 17:25] LABS: EOS # 0.2 (0.04-0.40); EOS % 2.2 % (1.0-5.0); HEMATOCRIT 35.2 % (37.0-47.0); HEMOGLOBIN 11.2 g/dL (12.5-16.0); LYMPH# 2.7 (1.50-4.00); MEAN CELL VOLUME 86 fl (78-100); MEAN CORPUSCULAR HEMOGLOBIN 27 pg (27-31); MEAN CORPUSCULAR HGB CONC 32 g/dL (33-37); MEAN PLATELET VOLUME 11.9 fl (7.4-10.4); MONO # 0.4 (0.20-0.80); NEU # 3.4 (1.40-6.50); PLATELET COUNT 249 K/mm3 (130-400); RED BLOOD COUNT 4.11 M/mm3 (4.10-5.30); RED CELL DISTRIBUTION WIDTH 12.9 % (11.5-14.5); WHITE BLOOD COUNT 6.7 K/mm3 (4.8-10.8)
[2020-11-16 17:35] LABS: CALCIUM 8.8 mg/dL (8.3-10.5)
[2020-11-16 17:37] LABS: TOTAL PROTEIN 6.9 g/dL (6.4-8.3)
[2020-11-16 17:38] LABS: TOTAL BILIRUBIN 1.6 mg/dL (0.2-1.2)
[2020-11-16 17:43] LABS: MAGNESIUM 1.99 mg/dL (1.60-2.60)
== END ==
LOC: LAB 16:53
PROVIDERS: Family Medicine
DX: K52.81 Eosinophilic gastritis or gastroenteritis (principal)

== ENCOUNTER → 2020-11-23 | Outpatient (CLI) | payer OTHER ==
[2020-11-16 17:05] VITALS: BP 125/72
[2020-11-23 17:33] LABS: EOS # 0.2 (0.04-0.40); EOS % 2.7 % (1.0-5.0); HEMATOCRIT 34.8 % (37.0-47.0); HEMOGLOBIN 11.1 g/dL (12.5-16.0); LYMPH# 2.8 (1.50-4.00); MEAN CELL VOLUME 86 fl (78-100); MEAN CORPUSCULAR HEMOGLOBIN 27 pg (27-31); MEAN CORPUSCULAR HGB CONC 32 g/dL (33-37); MEAN PLATELET VOLUME 11.9 fl (7.4-10.4); MONO # 0.4 (0.20-0.80); PLATELET COUNT 250 K/mm3 (130-400); RED BLOOD COUNT 4.07 M/mm3 (4.10-5.30); RED CELL DISTRIBUTION WIDTH 12.9 % (11.5-14.5); WHITE BLOOD COUNT 7.4 K/mm3 (4.8-10.8)
[2020-11-23 17:39] LABS: ALBUMIN 3.8 g/dL (3.5-5.0); POTASSIUM 3.8 mmol/L (3.5-5.1)
[2020-11-23 17:40] LABS: CALCIUM 8.8 mg/dL (8.3-10.5)
[2020-11-23 17:42] LABS: TOTAL PROTEIN 6.8 g/dL (6.4-8.3)
[2020-11-23 17:43] LABS: TOTAL BILIRUBIN 2.3 mg/dL (0.2-1.2)
[2020-11-23 17:48] LABS: MAGNESIUM 1.78 mg/dL (1.60-2.60)
== END ==
LOC: LAB 17:10
PROVIDERS: Family Medicine
DX: K52.81 Eosinophilic gastritis or gastroenteritis (principal)

== ENCOUNTER → 2020-11-26 | Outpatient (CLI) | payer OTHER ==
[2020-11-23 17:45] VITALS: BP 114/82
[2020-11-26 22:33] LABS: CORTISOL, AM (0800) 4 ug/dL (3-20)
== END ==
LOC: LAB 08:41 → AMSURD 08:41
PROVIDERS: Family Medicine
DX: N39.0 Urinary tract infection, site not specified (principal); K59.89 Other specified functional intestinal disorders

== ENCOUNTER → 2020-11-30 | Outpatient (CLI) | payer OTHER ==
[2020-11-23 17:45] VITALS: BP 114/82
[~2020-11-30] MED LIST changes: +DILAUDID 22 MG/1 M1 IV; +DURAGESIC25 MCG/PAT TD; +ONDANSENTRON 4MG/2ML IV; +benadry IV
[2020-11-30 18:23] LABS: EOS # 0.2 (0.04-0.40); EOS % 3.5 % (1.0-5.0); HEMOGLOBIN 10.5 g/dL (12.5-16.0); LYMPH# 2.7 (1.50-4.00); MEAN CELL VOLUME 86 fl (78-100); MEAN CORPUSCULAR HEMOGLOBIN 28 pg (27-31); MEAN CORPUSCULAR HGB CONC 32 g/dL (33-37); MONO # 0.4 (0.20-0.80); NEU # 2.6 (1.40-6.50); PLATELET COUNT 230 K/mm3 (130-400); RED BLOOD COUNT 3.82 M/mm3 (4.10-5.30); RED CELL DISTRIBUTION WIDTH 13.2 % (11.5-14.5)
[2020-11-30 18:24] LABS: MEAN PLATELET VOLUME 12.2 fl (7.4-10.4)
[2020-11-30 18:27] LABS: ALBUMIN 3.6 g/dL (3.5-5.0); POTASSIUM 3.9 mmol/L (3.5-5.1)
[2020-11-30 18:29] LABS: CALCIUM 8.5 mg/dL (8.3-10.5)
[2020-11-30 18:30] LABS: TOTAL PROTEIN 6.5 g/dL (6.4-8.3)
[2020-11-30 18:36] LABS: MAGNESIUM 1.91 mg/dL (1.60-2.60)
== END ==
LOC: LAB 17:00
PROVIDERS: Family Medicine
DX: K52.81 Eosinophilic gastritis or gastroenteritis (principal)

== ENCOUNTER → 2020-12-02 | Outpatient (CLI) | payer OTHER ==
[2020-11-30 18:33] VITALS: BP 101/58
== END ==
LOC: RAD 08:24
DX: R79.89 Other specified abnormal findings of blood chemistry (principal)

== ENCOUNTER → 2020-12-07 | Outpatient (CLI) | payer OTHER ==
[2020-11-30 18:33] VITALS: BP 101/58
[2020-12-07 18:17] LABS: HEMATOCRIT 32.3 % (37.0-47.0); HEMOGLOBIN 10.5 g/dL (12.5-16.0); MEAN CELL VOLUME 86 fl (78-100); RED BLOOD COUNT 3.76 M/mm3 (4.10-5.30); WHITE BLOOD COUNT 6.4 K/mm3 (4.8-10.8)
[2020-12-07 18:18] LABS: MEAN CORPUSCULAR HEMOGLOBIN 28 pg (27-31); MEAN CORPUSCULAR HGB CONC 33 g/dL (33-37); MEAN PLATELET VOLUME 11.9 fl (7.4-10.4); PLATELET COUNT 243 K/mm3 (130-400); RED CELL DISTRIBUTION WIDTH 12.9 % (11.5-14.5)
[2020-12-07 18:19] LABS: EOS # 0.1 (0.04-0.40); EOS % 2.2 % (1.0-5.0); LYMPH# 2.6 (1.50-4.00); MONO # 0.4 (0.20-0.80); NEU # 3.3 (1.40-6.50)
[2020-12-07 18:20] LABS: ALBUMIN 3.5 g/dL (3.5-5.0)
[2020-12-07 18:21] LABS: POTASSIUM 3.8 mmol/L (3.5-5.1)
[2020-12-07 18:22] LABS: CALCIUM 8.6 mg/dL (8.3-10.5)
[2020-12-07 18:23] LABS: TOTAL PROTEIN 6.3 g/dL (6.4-8.3)
[2020-12-07 18:25] LABS: TOTAL BILIRUBIN 1.1 mg/dL (0.2-1.2)
[2020-12-07 18:30] LABS: MAGNESIUM 1.9 mg/dL (1.60-2.60)
== END ==
LOC: LAB 17:03
PROVIDERS: Family Medicine
DX: K52.81 Eosinophilic gastritis or gastroenteritis (principal); R79.89 Other specified abnormal findings of blood chemistry

== ENCOUNTER → 2020-12-14 | Outpatient (CLI) | payer OTHER ==
[2020-12-07 18:43] VITALS: BP 106/64
[2020-12-14 18:42] LABS: EOS # 0.1 (0.04-0.40); EOS % 2.3 % (1.0-5.0); HEMATOCRIT 36.2 % (37.0-47.0); HEMOGLOBIN 11.6 g/dL (12.5-16.0); LYMPH# 2.6 (1.50-4.00); MEAN CELL VOLUME 86 fl (78-100); MEAN CORPUSCULAR HEMOGLOBIN 27 pg (27-31); MEAN CORPUSCULAR HGB CONC 32 g/dL (33-37); MEAN PLATELET VOLUME 11.6 fl (7.4-10.4); MONO # 0.3 (0.20-0.80); NEU # 2.9 (1.40-6.50); PLATELET COUNT 262 K/mm3 (130-400); RED BLOOD COUNT 4.23 M/mm3 (4.10-5.30)
[2020-12-14 18:49] LABS: ALBUMIN 3.8 g/dL (3.5-5.0); POTASSIUM 3.9 mmol/L (3.5-5.1)
[2020-12-14 18:52] LABS: TOTAL PROTEIN 6.8 g/dL (6.4-8.3)
== END ==
LOC: LAB 17:48
PROVIDERS: Family Medicine
DX: K52.81 Eosinophilic gastritis or gastroenteritis (principal)

== ENCOUNTER → 2020-12-15 | Outpatient (CLI) | payer OTHER ==
[2020-12-14 18:38] VITALS: BP 108/68
== END ==
LOC: RAD 09:00
DX: R10.9 Unspecified abdominal pain (principal); R11.0 Nausea; Z90.49 Acquired absence of other specified parts of digestive tract; Z98.890 Other specified postprocedural states
CPT/HCPCS: Q9967

== ENCOUNTER → 2020-12-21 | Outpatient (CLI) | payer OTHER ==
[2020-12-14 18:38] VITALS: BP 108/68
[2020-12-21 18:26] LABS: EOS # 0.1 (0.04-0.40); EOS % 1.6 % (1.0-5.0); HEMOGLOBIN 11.3 g/dL (12.5-16.0); LYMPH# 2.7 (1.50-4.00); MEAN CELL VOLUME 86 fl (78-100); MEAN CORPUSCULAR HEMOGLOBIN 28 pg (27-31); MEAN CORPUSCULAR HGB CONC 32 g/dL (33-37); MONO # 0.4 (0.20-0.80); NEU # 3.2 (1.40-6.50); PLATELET COUNT 262 K/mm3 (130-400); RED BLOOD COUNT 4.09 M/mm3 (4.10-5.30); RED CELL DISTRIBUTION WIDTH 12.7 % (11.5-14.5); WHITE BLOOD COUNT 6.4 K/mm3 (4.8-10.8)
[2020-12-21 18:33] LABS: MEAN PLATELET VOLUME 12.5 fl (7.4-10.4)
[2020-12-21 18:36] LABS: ALBUMIN 3.9 g/dL (3.5-5.0)
[2020-12-21 18:38] LABS: CALCIUM 8.9 mg/dL (8.3-10.5)
[2020-12-21 18:39] LABS: TOTAL PROTEIN 6.8 g/dL (6.4-8.3)
[2020-12-21 18:41] LABS: TOTAL BILIRUBIN 1.2 mg/dL (0.2-1.2)
[2020-12-21 18:46] LABS: MAGNESIUM 1.96 mg/dL (1.60-2.60)
== END ==
LOC: LAB 17:05
PROVIDERS: Family Medicine
DX: K52.81 Eosinophilic gastritis or gastroenteritis (principal)

== ENCOUNTER → 2020-12-28 | Outpatient (CLI) | payer OTHER ==
[2020-12-21 17:30] VITALS: BP 119/72
[2020-12-28 18:23] LABS: EOS # 0.2 (0.04-0.40); EOS % 2.1 % (1.0-5.0); HEMOGLOBIN 12.5 g/dL (12.5-16.0); LYMPH# 3.3 (1.50-4.00); MEAN CELL VOLUME 86 fl (78-100); MEAN CORPUSCULAR HEMOGLOBIN 28 pg (27-31); MEAN CORPUSCULAR HGB CONC 32 g/dL (33-37); MONO # 0.4 (0.20-0.80); NEU # 3.7 (1.40-6.50); PLATELET COUNT 268 K/mm3 (130-400); RED BLOOD COUNT 4.53 M/mm3 (4.10-5.30); RED CELL DISTRIBUTION WIDTH 12.7 % (11.5-14.5); WHITE BLOOD COUNT 7.6 K/mm3 (4.8-10.8)
[2020-12-28 18:27] LABS: ALBUMIN 4.2 g/dL (3.5-5.0)
[2020-12-28 18:28] LABS: CALCIUM 9.6 mg/dL (8.3-10.5)
[2020-12-28 18:30] LABS: TOTAL PROTEIN 7.5 g/dL (6.4-8.3)
[2020-12-28 18:31] LABS: TOTAL BILIRUBIN 1.8 mg/dL (0.2-1.2)
[2020-12-28 18:36] LABS: MAGNESIUM 2.14 mg/dL (1.60-2.60)
[2020-12-28 18:50] LABS: MEAN PLATELET VOLUME 12.1 fl (7.4-10.4)
[2020-12-28 19:22] LABS: PROTHROMBIN TIME 10.4 SECONDS (9.0-12.0)
[2020-12-30 03:58] LABS: CERULOPLASMIN 30 mg/dL (20-60)
[2021-01-01 22:31] LABS: VITAMIN E 6.3 mg/L (())
[2021-01-02 08:55] LABS: VITAMIN A 41.5 mcg/dL (())
[2021-01-28 16:49] LABS: .COPPER,S 1.22
== END ==
LOC: LAB 16:56
PROVIDERS: Family Medicine
DX: K52.81 Eosinophilic gastritis or gastroenteritis (principal); I49.8 Other specified cardiac arrhythmias

== ENCOUNTER → 2021-01-04 | Outpatient (CLI) | payer OTHER ==
[2020-12-21 17:30] VITALS: BP 119/72
[2021-01-04 20:58] LABS: EOS # 0.1 (0.04-0.40); EOS % 1.4 % (1.0-5.0); HEMATOCRIT 36.8 % (37.0-47.0); HEMOGLOBIN 11.9 g/dL (12.5-16.0); LYMPH# 2.9 (1.50-4.00); MEAN CELL VOLUME 86 fl (78-100); MEAN CORPUSCULAR HEMOGLOBIN 28 pg (27-31); MEAN CORPUSCULAR HGB CONC 32 g/dL (33-37); MEAN PLATELET VOLUME 12.6 fl (7.4-10.4); MONO # 0.5 (0.20-0.80); PLATELET COUNT 247 K/mm3 (130-400); RED BLOOD COUNT 4.29 M/mm3 (4.10-5.30); RED CELL DISTRIBUTION WIDTH 12.5 % (11.5-14.5); WHITE BLOOD COUNT 8.5 K/mm3 (4.8-10.8)
[2021-01-04 21:01] LABS: POTASSIUM 3.8 mmol/L (3.5-5.1)
[2021-01-04 21:03] LABS: TOTAL PROTEIN 6.8 g/dL (6.4-8.3)
[2021-01-04 21:05] LABS: TOTAL BILIRUBIN 1.4 mg/dL (0.2-1.2)
[2021-01-04 21:10] LABS: MAGNESIUM 2.04 mg/dL (1.60-2.60)
== END ==
LOC: LAB 17:06
PROVIDERS: Family Medicine
DX: K52.81 Eosinophilic gastritis or gastroenteritis (principal)

== ENCOUNTER → 2021-01-11 | Outpatient (CLI) | payer OTHER ==
[2021-01-04 18:01] VITALS: BP 110/62
[2021-01-11 18:10] LABS: EOS # 0.2 (0.04-0.40); EOS % 2.8 % (1.0-5.0); HEMATOCRIT 35.7 % (37.0-47.0); HEMOGLOBIN 11.5 g/dL (12.5-16.0); LYMPH# 2.4 (1.50-4.00); MEAN CELL VOLUME 86 fl (78-100); MEAN CORPUSCULAR HEMOGLOBIN 28 pg (27-31); MEAN CORPUSCULAR HGB CONC 32 g/dL (33-37); MONO # 0.4 (0.20-0.80); NEU # 2.7 (1.40-6.50); PLATELET COUNT 211 K/mm3 (130-400); RED BLOOD COUNT 4.16 M/mm3 (4.10-5.30); RED CELL DISTRIBUTION WIDTH 12.4 % (11.5-14.5); WHITE BLOOD COUNT 5.6 K/mm3 (4.8-10.8)
[2021-01-11 18:14] LABS: ALBUMIN 3.8 g/dL (3.5-5.0)
[2021-01-11 18:15] LABS: POTASSIUM 3.8 mmol/L (3.5-5.1)
[2021-01-11 18:16] LABS: CALCIUM 8.8 mg/dL (8.3-10.5)
[2021-01-11 18:17] LABS: TOTAL PROTEIN 6.9 g/dL (6.4-8.3)
[2021-01-11 18:19] LABS: TOTAL BILIRUBIN 1.4 mg/dL (0.2-1.2)
[2021-01-11 18:23] LABS: MAGNESIUM 1.9 mg/dL (1.60-2.60)
== END ==
LOC: LAB 16:58
PROVIDERS: Family Medicine
DX: Z01.89 Encounter for other specified special examinations (principal)

== ENCOUNTER → 2021-01-17 | Outpatient (CLI) | payer OTHER ==
[2021-01-11 17:38] VITALS: BP 107/65
[2021-01-18 07:04] LABS: EOS # 0.2 (0.04-0.40); HEMATOCRIT 36.3 % (37.0-47.0); HEMOGLOBIN 11.8 g/dL (12.5-16.0); LYMPH# 3.1 (1.50-4.00); MEAN CELL VOLUME 85 fl (78-100); MEAN CORPUSCULAR HEMOGLOBIN 28 pg (27-31); MEAN CORPUSCULAR HGB CONC 33 g/dL (33-37); MONO # 0.4 (0.20-0.80); NEU # 3.9 (1.40-6.50); PLATELET COUNT 269 K/mm3 (130-400); RED BLOOD COUNT 4.28 M/mm3 (4.10-5.30); RED CELL DISTRIBUTION WIDTH 12.1 % (11.5-14.5); WHITE BLOOD COUNT 7.6 K/mm3 (4.8-10.8)
[2021-01-18 07:12] LABS: MEAN PLATELET VOLUME 12.4 fl (7.4-10.4)
[2021-01-18 07:16] LABS: ALBUMIN 3.9 g/dL (3.5-5.0)
[2021-01-18 07:17] LABS: POTASSIUM 3.9 mmol/L (3.5-5.1)
[2021-01-18 07:18] LABS: CALCIUM 8.8 mg/dL (8.3-10.5)
[2021-01-18 07:19] LABS: TOTAL PROTEIN 6.9 g/dL (6.4-8.3)
[2021-01-18 07:21] LABS: TOTAL BILIRUBIN 2.1 mg/dL (0.2-1.2)
[2021-01-18 07:26] LABS: MAGNESIUM 1.92 mg/dL (1.60-2.60)
== END ==
LOC: LAB 15:37
PROVIDERS: Family Medicine
DX: K59.81 Ogilvie syndrome (principal); I49.8 Other specified cardiac arrhythmias

== ENCOUNTER → 2021-01-17 | Outpatient (RCR) | payer OTHER ==
[2020-10-19 17:30] VITALS: BP 119/67
[2020-10-26 17:43] VITALS: BP 111/64
[2020-11-03 17:58] VITALS: BP 102/77
[2020-11-09 19:09] VITALS: BP 106/45
[2020-11-16 17:05] VITALS: BP 125/72
[2020-11-23 17:45] VITALS: BP 114/82
[2020-11-30 18:33] VITALS: BP 101/58
[2020-12-07 18:43] VITALS: BP 106/64
[2020-12-14 18:38] VITALS: BP 108/68
[2020-12-21 17:30] VITALS: BP 119/72
[2021-01-04 18:01] VITALS: BP 110/62
[2021-01-11 17:38] VITALS: BP 107/65
[2021-01-17 15:40] VITALS: BP 115/70
== END | disposition home or self-care (01) ==
LOC: AMSURD
DX: E34.0 Carcinoid syndrome (principal); K52.81 Eosinophilic gastritis or gastroenteritis; I49.8 Other specified cardiac arrhythmias

== ENCOUNTER → 2021-02-02 | Outpatient (CLI) | payer OTHER ==
[2021-01-17 15:40] VITALS: BP 115/70
[2021-02-02 15:30] LABS: EOS # 0.2 (0.04-0.40); EOS % 2.6 % (1.0-5.0); HEMATOCRIT 35.6 % (37.0-47.0); HEMOGLOBIN 11.6 g/dL (12.5-16.0); MEAN CELL VOLUME 84 fl (78-100); MEAN CORPUSCULAR HEMOGLOBIN 27 pg (27-31); MEAN CORPUSCULAR HGB CONC 33 g/dL (33-37); MONO # 0.5 (0.20-0.80); NEU # 2.5 (1.40-6.50); PLATELET COUNT 259 K/mm3 (130-400); RED BLOOD COUNT 4.23 M/mm3 (4.10-5.30); RED CELL DISTRIBUTION WIDTH 12.3 % (11.5-14.5); WHITE BLOOD COUNT 6.2 K/mm3 (4.8-10.8)
[2021-02-02 15:31] LABS: MEAN PLATELET VOLUME 12.2 fl (7.4-10.4)
[2021-02-02 15:32] LABS: ALBUMIN 3.9 g/dL (3.5-5.0); POTASSIUM 4.2 mmol/L (3.5-5.1)
[2021-02-02 15:36] LABS: TOTAL BILIRUBIN 2.1 mg/dL (0.2-1.2)
[2021-02-02 15:41] LABS: MAGNESIUM 2.03 mg/dL (1.60-2.60)
== END ==
LOC: LAB 14:13
PROVIDERS: Family Medicine
DX: Z01.89 Encounter for other specified special examinations (principal)

== ENCOUNTER → 2021-02-09 | Outpatient (CLI) | payer OTHER ==
[2021-02-02 14:48] VITALS: BP 111/78
[2021-02-09 16:46] LABS: EOS # 0.2 (0.04-0.40); EOS % 2.2 % (1.0-5.0); HEMATOCRIT 35.4 % (37.0-47.0); HEMOGLOBIN 11.5 g/dL (12.5-16.0); MEAN CELL VOLUME 85 fl (78-100); MEAN CORPUSCULAR HEMOGLOBIN 27 pg (27-31); MEAN CORPUSCULAR HGB CONC 33 g/dL (33-37); MONO # 0.5 (0.20-0.80); NEU # 3.6 (1.40-6.50); PLATELET COUNT 242 K/mm3 (130-400); RED BLOOD COUNT 4.19 M/mm3 (4.10-5.30); RED CELL DISTRIBUTION WIDTH 12.4 % (11.5-14.5); WHITE BLOOD COUNT 7.2 K/mm3 (4.8-10.8)
[2021-02-09 17:01] LABS: MEAN PLATELET VOLUME 12.5 fl (7.4-10.4)
[2021-02-09 17:15] LABS: ALBUMIN 3.9 g/dL (3.5-5.0); POTASSIUM 3.9 mmol/L (3.5-5.1)
[2021-02-09 17:16] LABS: CALCIUM 8.9 mg/dL (8.3-10.5)
[2021-02-09 17:18] LABS: TOTAL PROTEIN 6.9 g/dL (6.4-8.3)
[2021-02-09 17:19] LABS: TOTAL BILIRUBIN 1.7 mg/dL (0.2-1.2)
[2021-02-09 17:24] LABS: MAGNESIUM 1.88 mg/dL (1.60-2.60)
== END ==
LOC: LAB 15:44
PROVIDERS: Family Medicine
DX: I49.8 Other specified cardiac arrhythmias (principal); R31.29 Other microscopic hematuria; K59.89 Other specified functional intestinal disorders

== ENCOUNTER → 2021-02-15 | Outpatient (CLI) | payer OTHER ==
[2021-02-09 16:41] VITALS: BP 130/72
[2021-02-15 18:30] LABS: BASO # 0.03 (0.02-0.10); EOS # 0.13 (0.04-0.40); EOS % 2.2 % (1.0-5.0); HEMATOCRIT 36.7 % (37.0-47.0); HEMOGLOBIN 12.1 g/dL (12.5-16.0); LYMPH# 2.63 (1.50-4.00); MEAN CELL VOLUME 85 fl (78-100); MEAN CORPUSCULAR HEMOGLOBIN 28 pg (27-31); MEAN CORPUSCULAR HGB CONC 33 g/dL (33-37); MEAN PLATELET VOLUME 12.1 fl (7.4-10.4); MONO # 0.37 (0.20-0.80); NEU # 2.72 (1.40-6.50); PLATELET COUNT 258 K/mm3 (130-400); RED BLOOD COUNT 4.34 M/mm3 (4.10-5.30); RED CELL DISTRIBUTION WIDTH 12.5 % (11.5-14.5); WHITE BLOOD COUNT 5.9 K/mm3 (4.8-10.8)
[2021-02-15 18:32] LABS: POTASSIUM 3.6 mmol/L (3.5-5.1)
[2021-02-15 18:36] LABS: TOTAL BILIRUBIN 1.3 mg/dL (0.2-1.2)
[2021-02-15 18:40] LABS: MAGNESIUM 1.88 mg/dL (1.60-2.60)
== END ==
LOC: LAB 17:13
PROVIDERS: Family Medicine
DX: I49.8 Other specified cardiac arrhythmias (principal)

== ENCOUNTER → 2021-02-22 | Outpatient (CLI) | payer OTHER ==
[2021-02-15 18:26] VITALS: BP 119/73
[2021-02-22 15:08] LABS: BASO # 0.02 (0.02-0.10); EOS # 0.15 (0.04-0.40); EOS % 2.3 % (1.0-5.0); HEMATOCRIT 35.8 % (37.0-47.0); LYMPH# 2.89 (1.50-4.00); MEAN CELL VOLUME 84 fl (78-100); MEAN CORPUSCULAR HEMOGLOBIN 28 pg (27-31); MEAN CORPUSCULAR HGB CONC 34 g/dL (33-37); MEAN PLATELET VOLUME 12.5 fl (7.4-10.4); MONO # 0.36 (0.20-0.80); NEU # 3.09 (1.40-6.50); PLATELET COUNT 231 K/mm3 (130-400); RED BLOOD COUNT 4.27 M/mm3 (4.10-5.30); RED CELL DISTRIBUTION WIDTH 12.6 % (11.5-14.5); WHITE BLOOD COUNT 6.5 K/mm3 (4.8-10.8)
[2021-02-22 15:11] LABS: ALBUMIN 3.9 g/dL (3.5-5.0)
[2021-02-22 15:13] LABS: CALCIUM 8.9 mg/dL (8.3-10.5)
[2021-02-22 15:14] LABS: TOTAL PROTEIN 7.1 g/dL (6.4-8.3)
[2021-02-22 15:16] LABS: TOTAL BILIRUBIN 2.1 mg/dL (0.2-1.2)
[2021-02-22 15:21] LABS: MAGNESIUM 2.07 mg/dL (1.60-2.60)
== END ==
LOC: LAB 13:54
PROVIDERS: Family Medicine
DX: K59.89 Other specified functional intestinal disorders (principal); I49.8 Other specified cardiac arrhythmias

== ENCOUNTER → 2021-03-01 | Outpatient (CLI) | payer OTHER ==
[2021-02-22 14:36] VITALS: BP 122/69
[2021-03-01 21:25] LABS: BASO # 0.03 (0.02-0.10); EOS # 0.14 (0.04-0.40); EOS % 1.9 % (1.0-5.0); HEMATOCRIT 36.7 % (37.0-47.0); HEMOGLOBIN 12.2 g/dL (12.5-16.0); LYMPH# 3.52 (1.50-4.00); MEAN CELL VOLUME 85 fl (78-100); MEAN CORPUSCULAR HEMOGLOBIN 28 pg (27-31); MEAN CORPUSCULAR HGB CONC 33 g/dL (33-37); MEAN PLATELET VOLUME 12.9 fl (7.4-10.4); MONO # 0.45 (0.20-0.80); NEU # 3.06 (1.40-6.50); PLATELET COUNT 251 K/mm3 (130-400); RED BLOOD COUNT 4.33 M/mm3 (4.10-5.30); RED CELL DISTRIBUTION WIDTH 12.7 % (11.5-14.5); WHITE BLOOD COUNT 7.2 K/mm3 (4.8-10.8)
[2021-03-01 21:29] LABS: ALBUMIN 4.1 g/dL (3.5-5.0); POTASSIUM 3.8 mmol/L (3.5-5.1)
[2021-03-01 21:30] LABS: CALCIUM 9.4 mg/dL (8.3-10.5)
[2021-03-01 21:32] LABS: TOTAL PROTEIN 7.3 g/dL (6.4-8.3)
[2021-03-01 21:33] LABS: TOTAL BILIRUBIN 2.1 mg/dL (0.2-1.2)
[2021-03-01 21:38] LABS: MAGNESIUM 2.22 mg/dL (1.60-2.60)
== END ==
LOC: AMSURD 17:06 → LAB 17:06
PROVIDERS: Family Medicine
DX: I49.8 Other specified cardiac arrhythmias (principal); K59.89 Other specified functional intestinal disorders

== ENCOUNTER → 2021-03-09 | Outpatient (CLI) | payer OTHER ==
[2021-03-01 17:17] VITALS: BP 104/63
[2021-03-09 17:59] LABS: BASO # 0.04 (0.02-0.10); EOS # 0.13 (0.04-0.40); EOS % 1.9 % (1.0-5.0); HEMOGLOBIN 11.9 g/dL (12.5-16.0); LYMPH# 3.21 (1.50-4.00); MEAN CELL VOLUME 84 fl (78-100); MEAN CORPUSCULAR HEMOGLOBIN 28 pg (27-31); MEAN CORPUSCULAR HGB CONC 33 g/dL (33-37); MONO # 0.44 (0.20-0.80); NEU # 3.02 (1.40-6.50); PLATELET COUNT 251 K/mm3 (130-400); RED BLOOD COUNT 4.29 M/mm3 (4.10-5.30); WHITE BLOOD COUNT 6.8 K/mm3 (4.8-10.8)
[2021-03-09 19:26] LABS: ALBUMIN 3.9 g/dL (3.5-5.0)
[2021-03-09 19:27] LABS: POTASSIUM 3.8 mmol/L (3.5-5.1)
[2021-03-09 19:28] LABS: CALCIUM 8.9 mg/dL (8.3-10.5)
[2021-03-09 19:35] LABS: MAGNESIUM 1.91 mg/dL (1.60-2.60)
== END ==
LOC: LAB 16:57
PROVIDERS: Family Medicine
DX: K59.89 Other specified functional intestinal disorders (principal); R11.2 Nausea with vomiting, unspecified; I48.91 Unspecified atrial fibrillation

== ENCOUNTER 2021-03-15 16:59 | Outpatient (RCR) | payer OTHER ==
[2021-02-02 14:48] VITALS: BP 111/78
[2021-02-09 16:41] VITALS: BP 130/72
[2021-02-15 18:26] VITALS: BP 119/73
[2021-02-22 14:36] VITALS: BP 122/69
[2021-03-01 17:17] VITALS: BP 104/63
[2021-03-09 17:00] VITALS: BP 115/72
[~2021-03-15 16:59] MED LIST changes: -DILAUDID 22 MG/1 M1 IV; -DURAGESIC25 MCG/PAT TD; -ONDANSENTRON 4MG/2ML IV; -benadry IV
[2021-03-15 17:30] VITALS: BP 114/72
[2021-03-20] MEDS ORDERED: ONDANSENTRON 4MG/2ML IV (14:58)
[2021-03-20] MEDS ORDERED: benadry IV (14:59)
[2021-04-19] MEDS ORDERED: DURAGESIC25 MCG/PAT TD (18:47)
[2021-04-19] MEDS ORDERED: DILAUDID 22 MG/1 M1 IV (18:51)
[2021-04-26] MEDS ORDERED: BUTRANS5 MCG/HR TD (19:04)
[2021-04-26] MEDS ORDERED: BUTRANS20 MCG/HR TD (19:05)
== END 2021-03-15 17:00 | disposition home or self-care (01) ==
LOC: AMSURD 16:59
DX: E34.0 Carcinoid syndrome (principal)

== ENCOUNTER → 2021-03-15 | Outpatient (CLI) | payer OTHER ==
[2021-03-09 17:00] VITALS: BP 115/72
[2021-03-15 18:17] LABS: BASO # 0.03 (0.02-0.10); EOS # 0.12 (0.04-0.40); EOS % 1.8 % (1.0-5.0); HEMATOCRIT 34.7 % (37.0-47.0); HEMOGLOBIN 11.6 g/dL (12.5-16.0); LYMPH# 2.98 (1.50-4.00); MEAN CELL VOLUME 84 fl (78-100); MEAN CORPUSCULAR HEMOGLOBIN 28 pg (27-31); MEAN CORPUSCULAR HGB CONC 33 g/dL (33-37); MEAN PLATELET VOLUME 12.1 fl (7.4-10.4); MONO # 0.39 (0.20-0.80); NEU # 3.23 (1.40-6.50); PLATELET COUNT 259 K/mm3 (130-400); RED BLOOD COUNT 4.11 M/mm3 (4.10-5.30); RED CELL DISTRIBUTION WIDTH 12.9 % (11.5-14.5); WHITE BLOOD COUNT 6.8 K/mm3 (4.8-10.8)
[2021-03-15 18:27] LABS: ALBUMIN 3.9 g/dL (3.5-5.0); POTASSIUM 3.9 mmol/L (3.5-5.1)
[2021-03-15 18:28] LABS: CALCIUM 8.9 mg/dL (8.3-10.5)
[2021-03-15 18:29] LABS: TOTAL PROTEIN 7.2 g/dL (6.4-8.3)
[2021-03-15 18:31] LABS: TOTAL BILIRUBIN 1.9 mg/dL (0.2-1.2)
[2021-03-15 18:36] LABS: MAGNESIUM 1.9 mg/dL (1.60-2.60)
== END ==
LOC: LAB 17:01
PROVIDERS: Family Medicine
DX: K59.89 Other specified functional intestinal disorders (principal); I48.91 Unspecified atrial fibrillation; R11.2 Nausea with vomiting, unspecified

== ENCOUNTER → 2021-03-19 | Outpatient (CLI) | payer OTHER ==
[~2021-03-19] MED LIST changes: +DILAUDID 22 MG/1 M1 IV; +DURAGESIC25 MCG/PAT TD; +ONDANSENTRON 4MG/2ML IV; +benadry IV
--- NOTE | 2021-03-19 00:31 | NUR ---
Pt comes in at this time because the right sided port needle tubing has a hole and is leaking Normal Saline when pt flushes it. Right sided port needle deaccessed, entire port area cleansed and right sided port reaccessed. Dressing applied / secured.
[2021-03-19 00:35] VITALS: BP 100/64
[2021-03-19 00:47] VITALS: BP 99/67
== END ==
LOC: AMSURD 03-18 23:49
DX: K52.81 Eosinophilic gastritis or gastroenteritis (principal); Z78.9 Other specified health status

== ENCOUNTER → 2021-03-20 | Outpatient (CLI) | payer OTHER ==
[2021-03-19 00:47] VITALS: BP 99/67
[2021-03-20 16:38] LABS: URINE APPEARANCE CLOUDY; URINE BILIRUBIN NEGATIVE (NEGATIVE); URINE BLOOD TRACE (NEGATIVE); URINE COLOR YELLOW; URINE GLUCOSE NEGATIVE (NEGATIVE); URINE KETONE NEGATIVE (NEGATIVE); URINE LEUKOCYTE ESTERASE 1+ (NEGATIVE); URINE NITRATE NEGATIVE (NEGATIVE); URINE PROTEIN(semi-quant) TRACE mg/dL (NEGATIVE); URINE UROBILINOGEN NORMAL (NORMAL); URINE WBC >50 /hpf (0-3)
== END ==
LOC: AMSURD 13:57 → LAB 16:00
PROVIDERS: Family Medicine
DX: K59.89 Other specified functional intestinal disorders (principal); R30.0 Dysuria; Z78.9 Other specified health status

== ENCOUNTER 2021-03-21 16:55 | Outpatient (RCR) | payer OTHER ==
--- NOTE | 2021-03-20 15:15 | NUR ---
Pt requests that her PICC drsg be changed as loose - Have previous recurring order from dr to change the dressing per protocol. No needle changes at this time for port. Picc drsg changed per protocol. impregnated disk (pt's own as allergic to hospital product) used. Post drsg change - blood return checked and noted from port.
--- NOTE | 2021-03-20 15:15 | NUR ---
Pt obtains UA - she has to straight cath herself at home and does so here with her supplies to obtain UA. UA sent to lab.
[2021-03-20 15:25] VITALS: BP 114/78
--- NOTE | 2021-03-20 15:35 | NUR ---
Pt requests second 1mg of dilaudid and med administered. right port flushed with 10 ml normal saline (pt to administer her meds when she gets home so no heplock used). Pt ambulates with steady gait.
[~2021-03-21 16:55] MED LIST changes: -DILAUDID 22 MG/1 M1 IV; -DURAGESIC25 MCG/PAT TD
[2021-03-21 17:20] VITALS: BP 116/62
--- NOTE | 2021-03-21 17:20 | NUR ---
PATIENT HERE FOR OUTPATIENT MED AND WOULD LIKE DRESSING AND NEEDLE CHANGE. DE-ACCESSED THE DUAL PORT [place] NEEDLES AND THEN PLACED 2 NEW [place] NEEDLES AND CHANGED DRESSING. TOLERATED WELL AND FLUSHES WELL WITH GOOD BLOOD RETURN. PATIENT GIVEN PRN DILAUDID IV AND TOLERATED WELL.
[2021-04-19] MEDS ORDERED: DURAGESIC25 MCG/PAT TD (18:47)
[2021-04-19] MEDS ORDERED: DILAUDID 22 MG/1 M1 IV (18:51)
[2021-04-26] MEDS ORDERED: BUTRANS5 MCG/HR TD (19:04)
[2021-04-26] MEDS ORDERED: BUTRANS20 MCG/HR TD (19:05)
== END 2021-03-21 20:00 | disposition home or self-care (01) ==
LOC: AMSURD 16:55
DX: K59.89 Other specified functional intestinal disorders (principal); R30.0 Dysuria; Z78.9 Other specified health status
CPT/HCPCS: J1170

== ENCOUNTER → 2021-03-22 | Outpatient (CLI) | payer OTHER ==
[~2021-03-22] MED LIST changes: +DILAUDID 22 MG/1 M1 IV; +DURAGESIC25 MCG/PAT TD
[2021-03-22 19:01] LABS: BASO # 0.05 (0.02-0.10); EOS % 2.6 % (1.0-5.0); HEMATOCRIT 36.3 % (37.0-47.0); HEMOGLOBIN 12.1 g/dL (12.5-16.0); LYMPH# 3.21 (1.50-4.00); MEAN CELL VOLUME 84 fl (78-100); MEAN CORPUSCULAR HEMOGLOBIN 28 pg (27-31); MEAN CORPUSCULAR HGB CONC 33 g/dL (33-37); MEAN PLATELET VOLUME 12.1 fl (7.4-10.4); MONO # 0.44 (0.20-0.80); NEU # 3.81 (1.40-6.50); PLATELET COUNT 262 K/mm3 (130-400); RED BLOOD COUNT 4.31 M/mm3 (4.10-5.30); RED CELL DISTRIBUTION WIDTH 13.1 % (11.5-14.5); WHITE BLOOD COUNT 7.7 K/mm3 (4.8-10.8)
[2021-03-22 19:02] LABS: POTASSIUM 3.9 mmol/L (3.5-5.1)
[2021-03-22 19:04] LABS: CALCIUM 9.2 mg/dL (8.3-10.5)
[2021-03-22 19:05] LABS: TOTAL PROTEIN 7.3 g/dL (6.4-8.3)
[2021-03-22 19:07] LABS: TOTAL BILIRUBIN 2.2 mg/dL (0.2-1.2)
[2021-03-22 19:11] LABS: MAGNESIUM 1.99 mg/dL (1.60-2.60)
== END ==
LOC: LAB 17:27
PROVIDERS: Family Medicine
DX: K52.81 Eosinophilic gastritis or gastroenteritis (principal)

== ENCOUNTER → 2021-03-29 | Outpatient (CLI) | payer OTHER ==
[2021-03-29 14:40] LABS: ALBUMIN 3.9 g/dL (3.5-5.0); BASO # 0.03 (0.02-0.10); EOS # 0.13 (0.04-0.40); HEMATOCRIT 35.9 % (37.0-47.0); HEMOGLOBIN 11.8 g/dL (12.5-16.0); LYMPH# 2.55 (1.50-4.00); MEAN CELL VOLUME 85 fl (78-100); MEAN CORPUSCULAR HEMOGLOBIN 28 pg (27-31); MEAN CORPUSCULAR HGB CONC 33 g/dL (33-37); MEAN PLATELET VOLUME 12.5 fl (7.4-10.4); MONO # 0.45 (0.20-0.80); NEU # 3.32 (1.40-6.50); PLATELET COUNT 241 K/mm3 (130-400); RED BLOOD COUNT 4.22 M/mm3 (4.10-5.30); WHITE BLOOD COUNT 6.5 K/mm3 (4.8-10.8)
[2021-03-29 14:42] LABS: CALCIUM 9.1 mg/dL (8.3-10.5)
[2021-03-29 14:43] LABS: TOTAL PROTEIN 7.2 g/dL (6.4-8.3)
[2021-03-29 14:45] LABS: TOTAL BILIRUBIN 0.8 mg/dL (0.2-1.2)
[2021-03-29 14:49] LABS: MAGNESIUM 1.87 mg/dL (1.60-2.60)
== END ==
LOC: LAB 12:45
PROVIDERS: Family Medicine
DX: R11.2 Nausea with vomiting, unspecified (principal); I49.8 Other specified cardiac arrhythmias

== ENCOUNTER → 2021-03-31 | Outpatient (CLI) | payer OTHER ==
[2021-03-31 20:43] LABS: URINE APPEARANCE HAZY; URINE BILIRUBIN NEGATIVE (NEGATIVE); URINE BLOOD NEGATIVE (NEGATIVE); URINE COLOR YELLOW; URINE GLUCOSE NEGATIVE (NEGATIVE); URINE KETONE NEGATIVE (NEGATIVE); URINE LEUKOCYTE ESTERASE NEGATIVE (NEGATIVE); URINE NITRATE NEGATIVE (NEGATIVE); URINE PROTEIN(semi-quant) NEGATIVE (NEGATIVE); URINE UROBILINOGEN NORMAL (NORMAL); URINE WBC 0-1 /hpf (0-3)
== END ==
LOC: LAB 19:08
PROVIDERS: Family Medicine
DX: N39.0 Urinary tract infection, site not specified (principal)

== ENCOUNTER → 2021-04-05 | Outpatient (CLI) | payer OTHER ==
[2021-04-05 13:34] LABS: BASO # 0.04 (0.02-0.10); EOS # 0.17 (0.04-0.40); EOS % 2.9 % (1.0-5.0); LYMPH# 2.71 (1.50-4.00); MEAN CELL VOLUME 85 fl (78-100); MEAN CORPUSCULAR HEMOGLOBIN 28 pg (27-31); MEAN CORPUSCULAR HGB CONC 33 g/dL (33-37); MEAN PLATELET VOLUME 12.2 fl (7.4-10.4); MONO # 0.44 (0.20-0.80); NEU # 2.57 (1.40-6.50); PLATELET COUNT 222 K/mm3 (130-400); RED BLOOD COUNT 3.88 M/mm3 (4.10-5.30); RED CELL DISTRIBUTION WIDTH 12.9 % (11.5-14.5); WHITE BLOOD COUNT 5.9 K/mm3 (4.8-10.8)
[2021-04-05 13:46] LABS: ALBUMIN 3.6 g/dL (3.5-5.0); POTASSIUM 4.1 mmol/L (3.5-5.1)
[2021-04-05 13:47] LABS: CALCIUM 8.8 mg/dL (8.3-10.5)
[2021-04-05 13:48] LABS: TOTAL PROTEIN 6.5 g/dL (6.4-8.3)
[2021-04-05 13:50] LABS: TOTAL BILIRUBIN 1.1 mg/dL (0.2-1.2)
[2021-04-05 13:55] LABS: MAGNESIUM 1.92 mg/dL (1.60-2.60)
== END ==
LOC: LAB 13:06
PROVIDERS: Family Medicine
DX: K52.81 Eosinophilic gastritis or gastroenteritis (principal)

== ENCOUNTER → 2021-04-12 | Outpatient (CLI) | payer OTHER ==
[2021-04-12 18:34] LABS: BASO # 0.03 (0.02-0.10); EOS % 2.8 % (1.0-5.0); HEMATOCRIT 36.3 % (37.0-47.0); HEMOGLOBIN 11.9 g/dL (12.5-16.0); LYMPH# 3.05 (1.50-4.00); MEAN CELL VOLUME 86 fl (78-100); MEAN CORPUSCULAR HEMOGLOBIN 28 pg (27-31); MEAN CORPUSCULAR HGB CONC 33 g/dL (33-37); MEAN PLATELET VOLUME 12.4 fl (7.4-10.4); MONO # 0.43 (0.20-0.80); NEU # 3.43 (1.40-6.50); PLATELET COUNT 256 K/mm3 (130-400); RED BLOOD COUNT 4.24 M/mm3 (4.10-5.30); RED CELL DISTRIBUTION WIDTH 12.9 % (11.5-14.5); WHITE BLOOD COUNT 7.1 K/mm3 (4.8-10.8)
[2021-04-12 18:35] LABS: ALBUMIN 3.9 g/dL (3.5-5.0)
[2021-04-12 18:36] LABS: POTASSIUM 3.9 mmol/L (3.5-5.1)
[2021-04-12 18:37] LABS: CALCIUM 8.9 mg/dL (8.3-10.5)
[2021-04-12 18:38] LABS: TOTAL PROTEIN 7.1 g/dL (6.4-8.3)
[2021-04-12 18:40] LABS: TOTAL BILIRUBIN 1.3 mg/dL (0.2-1.2)
[2021-04-12 18:44] LABS: MAGNESIUM 1.84 mg/dL (1.60-2.60)
== END | disposition still patient (30) ==
LOC: LAB 04-05 00:17
PROVIDERS: Family Medicine
DX: K52.81 Eosinophilic gastritis or gastroenteritis (principal); I49.8 Other specified cardiac arrhythmias

== ENCOUNTER → 2021-04-19 | Outpatient (CLI) | payer OTHER ==
[2021-04-19 18:28] LABS: BASO # 0.03 (0.02-0.10); EOS # 0.09 (0.04-0.40); EOS % 1.3 % (1.0-5.0); HEMATOCRIT 35.2 % (37.0-47.0); HEMOGLOBIN 11.8 g/dL (12.5-16.0); LYMPH# 2.81 (1.50-4.00); MEAN CELL VOLUME 85 fl (78-100); MEAN CORPUSCULAR HEMOGLOBIN 28 pg (27-31); MEAN CORPUSCULAR HGB CONC 34 g/dL (33-37); MEAN PLATELET VOLUME 12.3 fl (7.4-10.4); MONO # 0.32 (0.20-0.80); NEU # 3.57 (1.40-6.50); PLATELET COUNT 245 K/mm3 (130-400); RED BLOOD COUNT 4.15 M/mm3 (4.10-5.30); RED CELL DISTRIBUTION WIDTH 12.5 % (11.5-14.5); WHITE BLOOD COUNT 6.8 K/mm3 (4.8-10.8)
[2021-04-19 18:45] LABS: ALBUMIN 3.8 g/dL (3.5-5.0)
[2021-04-19 18:48] LABS: TOTAL PROTEIN 7.3 g/dL (6.4-8.3)
[2021-04-19 18:50] LABS: TOTAL BILIRUBIN 1.2 mg/dL (0.2-1.2)
[2021-04-19 18:54] LABS: MAGNESIUM 1.9 mg/dL (1.60-2.60)
== END ==
LOC: LAB 17:00
PROVIDERS: Family Medicine
DX: R11.2 Nausea with vomiting, unspecified (principal)

== ENCOUNTER → 2021-04-26 | Outpatient (CLI) | payer OTHER ==
[2021-04-26 18:50] LABS: BASO # 0.03 (0.02-0.10); EOS # 0.15 (0.04-0.40); EOS % 2.2 % (1.0-5.0); HEMATOCRIT 35.3 % (37.0-47.0); HEMOGLOBIN 11.4 g/dL (12.5-16.0); LYMPH# 3.26 (1.50-4.00); MEAN CELL VOLUME 87 fl (78-100); MEAN CORPUSCULAR HEMOGLOBIN 28 pg (27-31); MEAN CORPUSCULAR HGB CONC 32 g/dL (33-37); MEAN PLATELET VOLUME 12.1 fl (7.4-10.4); MONO # 0.38 (0.20-0.80); NEU # 3.07 (1.40-6.50); PLATELET COUNT 247 K/mm3 (130-400); RED BLOOD COUNT 4.05 M/mm3 (4.10-5.30); RED CELL DISTRIBUTION WIDTH 12.5 % (11.5-14.5); WHITE BLOOD COUNT 6.9 K/mm3 (4.8-10.8)
[2021-04-26 18:57] LABS: ALBUMIN 3.8 g/dL (3.5-5.0); POTASSIUM 3.9 mmol/L (3.5-5.1)
[2021-04-26 19:01] LABS: TOTAL BILIRUBIN 0.8 mg/dL (0.2-1.2)
[2021-04-26 19:05] LABS: URINE APPEARANCE HAZY; URINE BILIRUBIN NEGATIVE (NEGATIVE); URINE COLOR YELLOW; URINE GLUCOSE NEGATIVE (NEGATIVE); URINE KETONE NEGATIVE (NEGATIVE); URINE NITRATE NEGATIVE (NEGATIVE); URINE PROTEIN(semi-quant) NEGATIVE (NEGATIVE); URINE UROBILINOGEN NORMAL (NORMAL)
[2021-04-26 19:06] LABS: URINE BLOOD TRACE (NEGATIVE); URINE LEUKOCYTE ESTERASE TRACE (NEGATIVE); URINE MUCUS PRESENT (NOT PRESENT)
[2021-04-26 19:07] LABS: MAGNESIUM 1.86 mg/dL (1.60-2.60)
== END ==
LOC: LAB 17:16
PROVIDERS: Family Medicine
DX: R30.0 Dysuria (principal)

== ENCOUNTER 2021-04-30 14:38 | Outpatient (RCR) | payer OTHER ==
[2021-03-22 17:50] VITALS: BP 118/86
[2021-03-23 18:22] VITALS: BP 129/82
[2021-03-24 20:28] VITALS: BP 98/78
[2021-03-25 10:03] VITALS: BP 118/76
[2021-03-25 22:48] VITALS: BP 115/68
[2021-03-26 20:13] VITALS: BP 109/63
[2021-03-27 12:47] VITALS: BP 122/87
[2021-03-28 01:10] VITALS: BP 129/80
[2021-03-28 18:06] VITALS: BP 98/68
[2021-03-29 13:37] VITALS: BP 123/73
[2021-03-30 11:20] VITALS: BP 115/78
[2021-03-31 02:04] VITALS: BP 105/75
[2021-03-31 20:40] VITALS: BP 111/69
[2021-04-01 18:27] VITALS: BP 114/62
[2021-04-02 12:47] VITALS: BP 105/74
--- NOTE | 2021-04-02 13:27 | NUR ---
PT C/O PAIN 8-10 WHILE AT HOME. PT REQUESTED ACCESS TO OUTPT SERVICES AROUND [address], NURSE REGISTERED APPT IN THE BOOK. NO DISTRESS NOTED AT THIS TIME.
[2021-04-03 01:12] VITALS: BP 118/78
[2021-04-03 17:27] VITALS: BP 108/76
[2021-04-04 11:55] VITALS: BP 103/50
[2021-04-05 00:20] VITALS: BP 117/74
[2021-04-05 13:30] VITALS: BP 112/60
[2021-04-06 01:27] VITALS: BP 123/72
[2021-04-06 14:26] VITALS: BP 119/66
[2021-04-07 02:35] VITALS: BP 106/62
[2021-04-07 15:17] VITALS: BP 114/76
[2021-04-08 03:20] VITALS: BP 113/76
[2021-04-08 16:00] VITALS: BP 118/84
[2021-04-09 04:05] VITALS: BP 119/80
[2021-04-09 16:26] VITALS: BP 126/87
[2021-04-11 03:45] VITALS: BP 127/79
--- NOTE | 2021-04-11 04:20 | NUR ---
0345 Pt requested IV port-a-cath needle to be changed. IV tubing to port-a-cath leaking when flushed. Pt denied pain, no redness or swelling and none tender to touch. 0415 Port-a-cath access on 2nd attempt. Tolerated without difficulty.
[2021-04-12 17:15] VITALS: BP 115/73
[2021-04-16 22:18] VITALS: BP 102/69
[2021-04-19 17:45] VITALS: BP 113/73
[2021-04-26 17:15] VITALS: BP 112/70
[~2021-04-30] VITALS: Ht 175.3 cm; Wt 75.5 kg
[2021-04-30 14:45] VITALS: BP 129/74
== END 2021-06-20 | disposition still patient (30) ==
LOC: AMSURD
DX: R10.9 Unspecified abdominal pain (principal); G89.29 Other chronic pain
CPT/HCPCS: J1170

== ENCOUNTER → 2021-04-30 | Outpatient (CLI) | payer OTHER ==
[2021-04-30 15:36] LABS: BASO # 0.04 (0.02-0.10); EOS # 0.14 (0.04-0.40); HEMATOCRIT 36.2 % (37.0-47.0); HEMOGLOBIN 11.7 g/dL (12.5-16.0); LYMPH# 3.44 (1.50-4.00); MEAN CELL VOLUME 87 fl (78-100); MEAN CORPUSCULAR HEMOGLOBIN 28 pg (27-31); MEAN CORPUSCULAR HGB CONC 32 g/dL (33-37); MEAN PLATELET VOLUME 11.7 fl (7.4-10.4); MONO # 0.46 (0.20-0.80); NEU # 2.99 (1.40-6.50); PLATELET COUNT 241 K/mm3 (130-400); RED BLOOD COUNT 4.17 M/mm3 (4.10-5.30); RED CELL DISTRIBUTION WIDTH 12.3 % (11.5-14.5); WHITE BLOOD COUNT 7.1 K/mm3 (4.8-10.8)
[2021-04-30 15:37] LABS: ALBUMIN 3.8 g/dL (3.5-5.0)
[2021-04-30 15:38] LABS: CALCIUM 9.1 mg/dL (8.3-10.5)
[2021-04-30 15:40] LABS: TOTAL PROTEIN 6.9 g/dL (6.4-8.3)
[2021-04-30 15:41] LABS: TOTAL BILIRUBIN 1.3 mg/dL (0.2-1.2)
[2021-04-30 15:46] LABS: MAGNESIUM 1.88 mg/dL (1.60-2.60)
== END ==
LOC: LAB 14:59
PROVIDERS: Family Medicine
DX: I49.8 Other specified cardiac arrhythmias (principal); K58.8 Other irritable bowel syndrome

== ENCOUNTER → 2021-10-07 | Outpatient (CLI) | payer OTHER ==
[2021-10-07 11:18] LABS: PH-URINE 5.5 (5.0 - 8.0); URINE APPEARANCE CLEAR; URINE BILIRUBIN NEGATIVE (NEGATIVE); URINE BLOOD NEGATIVE (NEGATIVE); URINE COLOR YELLOW; URINE GLUCOSE NEGATIVE (NEGATIVE); URINE KETONE NEGATIVE (NEGATIVE); URINE LEUKOCYTE ESTERASE NEGATIVE (NEGATIVE); URINE NITRATE NEGATIVE (NEGATIVE); URINE PROTEIN(semi-quant) NEGATIVE (NEGATIVE); URINE UROBILINOGEN NORMAL (NORMAL); URINE WBC 0-1 /hpf (0-3)
[2021-10-07 11:19] LABS: URINE MUCUS PRESENT (NOT PRESENT)
== END ==
LOC: LAB 10:45
PROVIDERS: Family Medicine
DX: N31.2 Flaccid neuropathic bladder, not elsewhere classified (principal)

== ENCOUNTER → 2021-10-29 | Outpatient (CLI) | payer OTHER ==
[~2021-10-29] VITALS: Ht 175.3 cm; Wt 75.5 kg
[~2021-10-29] MED LIST changes: +AMPICILLIN SODIU2 GM IJ; +PROAIR HFA0.09 MG/AC IH
[2021-10-29 08:34] VITALS: BP 112/66
[2021-10-29 09:35] LABS: HEMATOCRIT 28.8 % (37.0-47.0); HEMOGLOBIN 8.8 g/dL (12.5-16.0)
[2021-10-29 11:58] LABS: URINE APPEARANCE CLEAR; URINE BILIRUBIN NEGATIVE (NEGATIVE); URINE BLOOD NEGATIVE (NEGATIVE); URINE COLOR YELLOW; URINE GLUCOSE NEGATIVE (NEGATIVE); URINE KETONE NEGATIVE (NEGATIVE); URINE LEUKOCYTE ESTERASE NEGATIVE (NEGATIVE); URINE MUCUS PRESENT (NOT PRESENT); URINE NITRATE NEGATIVE (NEGATIVE); URINE PROTEIN(semi-quant) NEGATIVE (NEGATIVE); URINE UROBILINOGEN NORMAL (NORMAL)
== END ==
LOC: LAB 08:06
PROVIDERS: Family Medicine
DX: D50.9 Iron deficiency anemia, unspecified (principal); N39.0 Urinary tract infection, site not specified

== ENCOUNTER → 2021-11-30 | Outpatient (CLI) | payer OTHER ==
[2021-11-30] VITALS (12 sets, daily range): BP systolic 89–112; BP diastolic 53–78
[~2021-11-30] VITALS: Ht 175.3 cm; Wt 75.5 kg
[2021-11-30 13:28] LABS: HEMATOCRIT 26.6 % (37.0-47.0); HEMOGLOBIN 8.1 g/dL (12.5-16.0)
== END ==
LOC: AMSURD 11-04 08:36 → EDSTATUS 12-06 11:30
PROVIDERS: Family Medicine
DX: D50.8 Other iron deficiency anemias (principal)
CPT/HCPCS: P9016

== ENCOUNTER → 2022-02-02 | Outpatient (CLI) | payer OTHER ==
[~2022-02-02] VITALS: Ht 175.3 cm; Wt 75.5 kg
[2022-02-02 16:28] VITALS: BP 113/71
[2022-02-02 18:43] LABS: HEMATOCRIT 36.7 % (37.0-47.0); HEMOGLOBIN 11.5 g/dL (12.5-16.0); MEAN PLATELET VOLUME 11.3 fl (7.4-10.4); RED BLOOD COUNT 4.52 M/mm3 (4.10-5.30); RED CELL DISTRIBUTION WIDTH 19.6 % (11.5-14.5); WHITE BLOOD COUNT 7.9 K/mm3 (4.8-10.8)
[2022-02-02 19:03] LABS: ALBUMIN 3.8 g/dL (3.5-5.0); POTASSIUM 4.1 mmol/L (3.5-5.1)
[2022-02-02 19:04] LABS: CALCIUM 9.5 mg/dL (8.3-10.5)
[2022-02-02 19:07] LABS: TOTAL BILIRUBIN 0.6 mg/dL (0.2-1.2)
[2022-02-02 19:12] LABS: MAGNESIUM 1.95 mg/dL (1.60-2.60)
[2022-02-03 18:00] LABS: PTH,INTACT 24.8 pg/mL (6.6-88.9)
[2022-02-03 18:16] LABS: FOLATE (FOLIC ACID) 16.6 ng/mL (2.0-20.0)
[2022-02-03 20:09] LABS: HOMOCYSTEINE SERUM OR PLASMA 3.5 umol/L (4.0-14.0)
[2022-02-07 12:50] LABS: .COPPER,S 1.45 mcg/mL (())
[2022-02-07 15:26] LABS: VITAMIN A 45.7 mcg/dL (())
[2022-02-07 22:26] LABS: VITAMIN E 15.1 mg/L (())
[2022-02-08 09:16] LABS: VITAMIN B1 222 nmol/L (70-180)
[2022-02-08 19:40] LABS: SELENIUM, SERUM AMS
== END ==
LOC: AMSURD 16:12
PROVIDERS: Family Medicine
DX: D50.8 Other iron deficiency anemias (principal); E34.0 Carcinoid syndrome

== ENCOUNTER 2022-09-14 18:58 | Emergency (ER) | payer OTHER ==
[~2022-09-14] VITALS: Ht 172.7 cm; Wt 96.2 kg
[2022-09-14 19:11] VITALS: BP 107/71
[2022-09-14 20:23] LABS: BASO # 0.04 K/mm3 (0.02-0.10); EOS # 0.25 K/mm3 (0.04-0.40); EOS % 2.8 % (1.0-5.0); HEMATOCRIT 36.6 % (37.0-47.0); HEMOGLOBIN 11.4 g/dL (12.5-16.0); LYMPH# 3.75 K/mm3 (1.50-4.00); MEAN CELL VOLUME 85 fl (78-100); MEAN CORPUSCULAR HEMOGLOBIN 27 pg (27-31); MEAN CORPUSCULAR HGB CONC 31 g/dL (33-37); MONO # 0.47 K/mm3 (0.20-0.80); NEU # 4.29 K/mm3 (1.40-6.50); PLATELET COUNT 307 K/mm3 (130-400); RED BLOOD COUNT 4.31 M/mm3 (4.10-5.30); RED CELL DISTRIBUTION WIDTH 13.9 % (11.5-14.5); WHITE BLOOD COUNT 8.8 K/mm3 (4.8-10.8)
[2022-09-14 20:34] LABS: ALBUMIN 4.1 g/dL (3.5-5.0)
[2022-09-14 20:35] LABS: POTASSIUM 3.9 mmol/L (3.5-5.1)
[2022-09-14 20:36] LABS: CALCIUM 9.7 mg/dL (8.3-10.5)
[2022-09-14 20:37] LABS: TOTAL PROTEIN 7.6 g/dL (6.4-8.3)
[2022-09-14 20:39] LABS: TOTAL BILIRUBIN 0.8 mg/dL (0.2-1.2)
[2022-09-14 21:43] LABS: PH-URINE 6.5 (5.0 - 8.0); URINE APPEARANCE HAZY; URINE BILIRUBIN NEGATIVE (NEGATIVE); URINE BLOOD TRACE (NEGATIVE); URINE COLOR YELLOW; URINE GLUCOSE NEGATIVE (NEGATIVE); URINE KETONE NEGATIVE (NEGATIVE); URINE LEUKOCYTE ESTERASE TRACE (NEGATIVE); URINE NITRATE NEGATIVE (NEGATIVE); URINE PROTEIN(semi-quant) TRACE (NEGATIVE); URINE UROBILINOGEN NORMAL (NORMAL)
[2022-09-14] MEDS ORDERED: CEFTRIAXON1 GM/50 M1 IV (23:01)
[2022-09-19 19:02] LABS: GRAM STAIN AMS
== END 2022-09-15 01:57 | disposition home or self-care (01) ==
LOC: ED 18:58
PROVIDERS: Family Medicine
DX: N39.0 Urinary tract infection, site not specified (principal); M25.562 Pain in left knee; Z88.0 Allergy status to penicillin
CPT/HCPCS: J0696; J1200; J1885; J2405; J2550; J7030